=== PATIENT | female | born 1945 | race Caucasian/White ===

== ENCOUNTER 2016-09-20 02:45 | Observation (INO) | payer BC ==
[2016-09-20] MEDS ORDERED: NS 0.9% 1000 ML* 1,000 ML IV ONE (03:22)
[2016-09-20] MEDS ORDERED: Ondansetron INJ* 2 MG/ML VIAL ONE (03:26)
[2016-09-20] MEDS ORDERED: Acetaminophen SUPP* 650 MG SUPP ONE (03:27)
[2016-09-20] MEDS ORDERED: Ondansetron INJ* 2 MG/ML VIAL IV ONE ×2 (03:30→06:25)
[2016-09-20] MEDS ORDERED: Acetaminophen SUPP* 650 MG SUPP PR ONE (03:32)
[2016-09-20 03:33] LABS: Hematocrit 40 % (35-47); Hemoglobin 13.4 g/dl (12.0-16.0); Mean Corpuscular HGB Conc 34 g/dl (31-36); Mean Corpuscular Hemoglobin 31 pg (27-31); Mean Corpuscular Volume 91 fL (80-97); Mean Platelet Volume 8 um3 (7.4-10.4); Red Blood Count 4.35 10^6/ul (4.0-5.4); Red Cell Distribution Width 14 % (10.5-15); White Blood Count 4.3 10^3/ul (3.5-10.8)
--- NOTE | 2016-09-20 03:33 | ED ---
Brant Horn Billy, scribed for Chuckie White MD on 09/20/16 at 0332 . Complex/Multi-Sys Presentation - HPI Summary HPI Summary: Patient is a 70 year-old female coming to [facility] presenting with constant chills since she woke up at 0115 this morning. She also reports nausea. Nothing makes her symptoms better or worse. She states that she felt "off" before going to bed last night. - History Of Current Complaint Chief Complaint: EDFever Time Seen by Provider: 09/20/16 03:15 Hx Obtained From: Patient Onset/Duration: Gradual Onset, Lasting Hours, Still Present Timing: Constant Severity Currently: Moderate Severity Initially: Moderate Location: Negative Aggravating Factor(s): none Alleviating Factor(s): none Associated Signs And Symptoms: Positive: Nausea - Allergies/Home Medications Allergies/Adverse Reactions: Allergies Allergy/AdvReac Type Severity Reaction Status Date / Time Amoxicillin Allergy IRRITATING Verified 09/20/16 04:04 RASH Indomethacin [From Indocin] Allergy DIZZY, Verified 09/20/16 04:04 IRRITATING RASH Iodinated Contrast Media Allergy SEVERE RASH Verified 09/20/16 04:04 [IV CONTRAST DYE] Magnesium Salicylate Allergy SWELLS Verified 09/20/16 04:04 [From Msg] Moxifloxacin [From Avelox] Allergy Unknown Verified 09/20/16 04:04 Reaction Details Sulfa Drugs Allergy SEVERE RASH Verified 09/20/16 04:04 BEE STINGS Allergy Severe SWELLS Uncoded 09/20/16 04:04 SURGICAL TAPE Allergy Intermediate ORNELAS AND Uncoded 09/20/16 04:04 SKIN PEELS Home Medications: Home Medications Enalapril Maleate [Vasotec] 10 mg PO QPM 09/20/16 [History Confirmed 09/20/16] Famotidine [Pepcid] 40 mg PO BID PRN 09/20/16 [History Confirmed 09/20/16] PMH/Surg Hx/FS Hx/Imm Hx Endocrine/Hematology History: Reports: Hx Diabetes - WELL CONTROLLED, Hx Thyroid Disease Cardiovascular History: Reports: Hx Congestive Heart Failure - 2000, Hx Coronary Artery Disease, Hx Hypertension - WELL CONTROLLED, Hx Pacemaker/ICD - 2000, Other Cardiovascular Problems/Disorders - CARDIOMYOPATHY EF 45-50% Denies: Hx Peripheral Vascular Disease Respiratory History: Reports: Hx Chronic Bronchitis, Hx Pneumonia, Hx Sleep Apnea - NO CPAP OR BIPAP GI History: Reports: Hx Gastroesophageal Reflux Disease - WELL CONTROLLED, Hx Hiatal Hernia - HX OF, Other GI Disorders - HX GRAVE'S AND TESSA'S DISEASE History: Reports: Hx Kidney Stones - HX OF Musculoskeletal History: Reports: Hx Bursitis, Other Musculoskeletal History - sinal curvature d/t Cushings, pain in hips d/t osteoporosis Denies: Hx Arthritis, Hx Rheumatoid Arthritis, Hx Osteoporosis Sensory History: Reports: Hx Cataracts - l replaced r needed, Hx Contacts or Glasses, Hx Hearing Aid - bilat, Hx Hearing Problem Opthamlomology History: Reports: Hx Cataracts - l replaced r needed, Hx Contacts or Glasses Neurological History: Denies: Hx Seizures, Hx Transient Ischemic Attacks (TIA) - Cancer History Hx Chemotherapy: No Hx Radiation Therapy: No - Surgical History Surgery Procedure, Year, and Place: 1977 HYSTERECTOMY, [facility] [place]. 1979 OOPHORECTOMY, [facility] [place]. 1987 & 1988 TRANSSPHENOIDAL RESECTION OF THE PITUITARY, [facility]. [id number] FESS [place]. 1997,2002,2006 KIDNEY STONE REMOVAL, [facility]. 1999, 2006 HEART CATH [facility] AND [facility] [place]. 2000 ICD IMPLANT, [facility]. 2006, 10/18 ICD IMPLANT REPLACEMENT, [facility]. 2003, 2004 LEFT EYE LID RETRACTION , [place]. 2004 ABDOMINAL HERNIA REPAIR AND CELLULITIS ABSCESS REMOVAL [facility] [place]. 2008 THYROIDECTOMY AND PARTIAL PARATHYROIDECTOMY, [facility] [place]. 02/15 SINUS SURGERY [place]. 2010 RIGHT ROTATOR CUFF SURGERY, [facility] [place]. LEFT CATARACT [facility] [place] Hx Anesthesia Reactions: No Infectious Disease History: No Infectious Disease History: Denies: Traveled Outside the [place] in Last 30 Days - Family History Family History: No FHx of osteoporosis, breast cancer, malignant hyperthermia, or anesthesia reaction. - Social History Alcohol Use: Weekly Alcohol Amount: 2-3/WEEK Substance Use Type: Reports: None Smoking Status (MU): Former Smoker Type: Cigarettes Have You Smoked in the Last Year: No Review of Systems Positive: Chills Positive: Nausea All Other Systems Reviewed And Are Negative: Yes Physical Exam Triage Information Reviewed: Yes Vital Signs On Initial Exam: Initial Vitals Temp Pulse Resp BP Pulse Ox 101.9 F 109 20 134/59 98 09/20/16 02:59 09/20/16 02:59 09/20/16 02:59 09/20/16 02:59 09/20/16 02:59 Vital Signs Reviewed: Yes Appearance: Positive: Well-Appearing, No Pain Distress Skin: Positive: Warm Head/Face: Positive: Normal Head/Face Inspection ENT: Positive: Hearing grossly normal Neck: Positive: Supple Respiratory/Lung Sounds: Positive: Clear to Auscultation, Breath Sounds Present Cardiovascular: Positive: Tachycardia Abdomen Description: Positive: Nontender, Soft Bowel Sounds: Positive: Present Musculoskeletal: Positive: Strength/ROM Intact Neurological: Positive: Sensory/Motor Intact, Alert, Oriented to Person Place, Time Diagnostics - Vital Signs Vital Signs Temp Pulse Resp BP Pulse Ox 09/20/16 03:00 109 21 112/51 97 09/20/16 02:59 101.9 F 109 20 134/59 98 - Laboratory Result Diagrams: 09/20/16 03:00 09/20/16 03:00 Lab Statement: Any lab studies that have been ordered have been reviewed, and results considered in the medical decision making process. - Radiology CXR Xray Interpretation: No Acute Changes Radiology Interpretation Completed By: ED Physician - EKG 0427 EKG Interpretation: sinus tachycardia 120 bpm, no ST elevation Re-Evaluation - Re-Evaluation First Eval Re-Evaluation Time: 06:52 - pt still with nausea, d/w hospitalist, will admit Complex Multi-Symp Course/Dx - Diagnoses Provider Diagnoses: UTI (urinary tract infection) - Physician Notifications Discussed Care Of Patient With: Dr. Flores (hospitalist) @ 0600 Instructed by Provider To: Admit As Inpatient Discharge - Discharge Plan Condition: Fair Disposition: ADMITTED TO [facility] Prescriptions: Ciprofloxacin TAB* [Cipro Tab*] 250 mg PO BID #14 tab The documentation as recorded by the Brant owens Billy accurately reflects the service I personally performed and the decisions made by me, Chuckie White MD.
[2016-09-20 03:44] LABS: Albumin 3.8 g/dL (3.2-5.2); BUN/Creatinine Ratio 17.4 (8-20); Calcium 9.2 mg/dL (8.6-10.3); EGFR African American 77.8 (>60); EGFR Non-African American 60.5 (>60); Globulin 3.2 g/dL (2-4); Magnesium 1.9 mg/dL (1.9-2.7)
[2016-09-20 03:48] LABS: Troponin I 0.04 ng/mL (<0.04)
[2016-09-20 04:57] LABS: Urine Bacteria Absent (Absent); Urine Bilirubin Negative (Negative); Urine Glucose Negative (Negative); Urine Nitrite Negative (Negative)
[2016-09-20] MEDS ORDERED: Sulfamethox/Trimethoprim DS 800/160* TAB PO ONE (05:18)
[2016-09-20] MEDS: Ciprofloxacin TAB* 250 MG PO ONE ×2 (05:37→06:24)
[2016-09-20] MEDS ORDERED: Ciprofloxacin 400MG IVPREMIX(* 400 MG/200 ML BAG IVPB ONE (06:01)
--- NOTE | 2016-09-20 07:48 | RAD ---
INDICATION: Fever. COMPARISON: Comparison is made with a prior chest x-ray study from January 30, 2016. TECHNIQUE: Dual-energy PA and lateral views of the chest were obtained. FINDINGS: There is a dual-chamber cardiac pacemaker defibrillator present. The heart is within normal limits in size. The lungs are underinflated and clear. No pleural effusion is present. IMPRESSION: NO EVIDENCE FOR ACTIVE CARDIOPULMONARY DISEASE.
[2016-09-20] MEDS: NS 0.9% 1000 ML* 2,000 ML IV ONE ×2 (08:17→09:54)
[2016-09-20] MEDS ORDERED: Famotidine TAB 40 MG(NF) 40 MG TAB PO PRN (10:04)
--- NOTE | 2016-09-20 10:36 | ADMNOTE ---
Subjective Date of Service: 09/20/16 Interval History: ADMISSION HISTORY AND PHYSICAL EXAM: Allergies Allergy/AdvReac Type Severity Reaction Status Date / Time Amoxicillin Allergy IRRITATING Verified 09/20/16 04:04 RASH Indomethacin [From Indocin] Allergy DIZZY, Verified 09/20/16 04:04 IRRITATING RASH Iodinated Contrast Media Allergy SEVERE RASH Verified 09/20/16 04:04 [IV CONTRAST DYE] Magnesium Salicylate Allergy SWELLS Verified 09/20/16 04:04 [From Msg] Moxifloxacin [From Avelox] Allergy Unknown Verified 09/20/16 04:04 Reaction Details Sulfa Drugs Allergy SEVERE RASH Verified 09/20/16 04:04 BEE STINGS Allergy Severe SWELLS Uncoded 09/20/16 04:04 SURGICAL TAPE Allergy Intermediate ORNELAS AND Uncoded 09/20/16 04:04 SKIN PEELS Home Medications Medication Instructions Recorded Confirmed Type Cholecalciferol [Vitamin D] 4,000 unit PO DAILY 08/12/12 09/20/16 History Cyanocobalamin [Vitamin B-12] 2,500 mcg PO BID 08/12/12 09/20/16 History Furosemide 20 mg PO TUTHSA 08/12/12 09/20/16 History Levothyroxine TAB* [Synthroid TAB*] 100 mcg PO QAM 08/12/12 09/20/16 History Sennosides [Senokot] 2 tab PO DAILY 08/12/12 09/20/16 History Calcium Carbonate-Vitamin D 2 tab PO DAILY 10/05/14 09/20/16 History [Calcium 600+D] Eplerenone 25 mg PO SEE INSTRUCTIONS 10/05/14 09/20/16 History Magnesium Oxide (mg Supplement 1,000 mg PO DAILY 10/05/14 09/20/16 History [Magnesium] B-Complex Vitamins [Vitamin B 1 tab PO BID 10/07/14 09/20/16 History Complex] Dofetilide CAP* [Tikosyn CAP*] 125 mcg PO BID 08/05/15 09/20/16 History Neilmed Nasal [place] 1 spray BOTH NARES BID 08/05/15 09/20/16 History Potassium 99 mg PO BID 08/05/15 09/20/16 History Sulindac (NF) [Clinoril (NF)] 200 mg PO BID 08/05/15 09/20/16 History Ciprofloxacin TAB* [Cipro Tab*] 250 mg PO BID #14 tab 09/20/16 Rx Enalapril Maleate [Vasotec] 10 mg PO QPM 09/20/16 09/20/16 History Famotidine [Pepcid] 40 mg PO BID PRN 09/20/16 09/20/16 History HPI: The patient was in her usual state of health when whe went to bed at her usual time of 8 PM 09/19. She awoke this AM with shaking chills. When she stood up she was a little dizzy. She called 911 and was brought here by ambualnce. She is a little nauseous, no other c/o. Family History: Findings - Unremakable. Social History: Findings - Lives with her who is her SDM. Quit smoking 30 yrs ago. No alcohol abuse. Past Medical History: Findings - Pituitary tumor resection x 2 1987, 1988. Nonischemic cardiomyopathy whil taking GH. AICD. TAHBSO, sinus surgeries, abcess removal 2004, abdominal hernia repair. Review of Systems - Measurements Intake and Output: Intake and Output Last 24 Hours 09/18/16 09/19/16 09/20/16 09/21/16 06:59 06:59 06:59 06:59 Intake Total 1202 1000 Balance 1202 1000 Weight 143 lb Intake: IV Fluids 1202 1000 - Review of Systems Constitutional Symptoms: Positive: Other - chills Negative: Weight Gain, Weight Loss, Weakness, Fatigue, Fever, Night Sweats, Unexplained Falls Dermatology: Positive: Normal HEENT: Positive: Normal Eyes: Positive: Normal Thyroid: Positive: Other - secondary hypothyroidism Pulmonary: Positive: Normal Cardiology: Positive: Other - cardiomyopathy Gastroenterology: Positive: Nausea Genital - Urinary: Positive: Normal Musculoskeletal: Negative: Joint Pain, Joint Stiffness, Arthritis, Osteoporosis, Low Back Pain , Sciatica, Joint Deformities, Kyphoscoliosis, Other Endocrinology: Positive: Pituitary disease Hematologic/Lymphatic: Negative: Anemia, Easy Brusing, Hx Leukemia, Hx Lymphoma, Use of Anticoagulant, Use of Antiplatelet Drugs, Other Neurology: Positive: Normal Psychiatry: Positive: Normal Allergic/Immunologic: Negative: Hx Anaphylaxis, Hx Angioedema, Hx Environmental, Hx Seasonal, Athsma, Hx HIV, Immunocompromise, Swollen Glands LymphNodes, Other Objective Active Medications: Cholecalciferol (Vitamin D Tab*) 4,000 units PO DAILY [facility] Dofetilide (Tikosyn Cap*) 125 mcg PO BID [facility] Dofetilide (Tikosyn Cap*) 125 mcg PO BID [facility] Enalapril Maleate (Vasotec Tab*) 5 mg PO QPM [facility] Enoxaparin Sodium (Lovenox(*)) 40 mg SUBCUT Q24H [facility] Eplerenone (Inspra (Nf)) 25 mg PO Q48H [facility] PRN Reason: Protocol Famotidine (Pepcid Tab 40 Mg(Nf)) 40 mg PO BID PRN PRN Reason: INDIGESTION Furosemide (Lasix Tab*) 20 mg PO TUTHSA [facility] Ciprofloxacin/Dextrose (Cipro 400 Mg Ivpremix(*)) 400 mg in 200 mls @ 200 mls/ hr IVPB Q12H [facility] Levothyroxine Sodium (Synthroid Tab*) 100 mcg PO QAM [facility] Magnesium Oxide (Magox 400 Tab*) 400 mg PO DAILY [facility] Senna (Senokot Tab*) 2 tab PO DAILY [facility] Sulindac (Clinoril (Nf)) 200 mg PO BID [facility] Vital Signs 09/20/16 09/20/16 09/20/16 02:59 03:00 03:30 Temperature 101.9 F Pulse Rate 109 109 116 Respiratory 20 21 22 Rate Blood Pressure 134/59 112/51 128/62 (mmHg) O2 Sat by Pulse 98 97 93 Oximetry 09/20/16 09/20/16 09/20/16 04:00 04:03 04:30 Temperature 100.1 F Pulse Rate 113 114 118 Respiratory 19 9 21 Rate Blood Pressure 105/60 103/58 (mmHg) O2 Sat by Pulse 95 95 94 Oximetry 09/20/16 09/20/16 09/20/16 05:00 05:24 05:30 Temperature 101.2 F Pulse Rate 116 112 Respiratory 20 19 Rate Blood Pressure 100/51 99/49 (mmHg) O2 Sat by Pulse 92 93 Oximetry 09/20/16 09/20/16 09/20/16 06:00 06:19 06:30 Temperature 98.2 F Pulse Rate 90 88 Respiratory 21 19 Rate Blood Pressure 80/44 91/41 (mmHg) O2 Sat by Pulse 90 92 Oximetry 09/20/16 09/20/16 07:57 10:26 Temperature 99.4 F 99.2 F Pulse Rate 87 82 Respiratory 15 17 Rate Blood Pressure 93/47 94/42 (mmHg) O2 Sat by Pulse 95 95 Oximetry Oxygen Devices in Use Now: None Appearance: Alert, supine on ED stretcher. In good spirits. Looks comfortable. Eyes: No Scleral Icterus Ears/Nose/Mouth/Throat: Clear Oropharnyx, Mucous Membranes Moist Neck: NL Appearance and Movements; NL JVP, No Thyroid Enlargement, Masses Respiratory: Symmetrical Chest Expansion and Respiratory Effort, Clear to Auscultation, Clear to Percussion Cardiovascular: NL Sounds; No Murmurs; No JVD, RRR, No Edema, - Extremities: No Edema, No Clubbing, Cyanosis, - Skin: No Rash or Ulcers, No Nodules or Sclerosis, - Neurological: Alert and Oriented x 3, NL Sensation Result Diagrams: 09/20/16 03:00 09/20/16 03:00 Microbiology and Other Data: Microbiology 09/20/16 03:04 Influenza Types A,B Antigen (KAILEE) - Final Nasal Specimen received for Influenza A/B Molecular testing Assess/Plan/Problems-Billing Assessment: - Patient Problems (1) Sepsis Current Visit: Yes Status: Acute Comment: Sepsis with hypotension, increased lactate, chills and fever. Suspect UTI. Cipro ordered. (2) Cardiomyopathy Current Visit: Yes Status: Acute Code(s): I42.9 - CARDIOMYOPATHY, UNSPECIFIED SNOMED Code(s): 14542441 Comment: Followed by Dr. Patterson. Note ICD. Repeat troponin 11:30 09/20. Caution with IV fluids. Continue dofetilide, diuretics. Reduce enalapril to 5 mg hs. 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 Note Free T4, free T3 wnl 08/30/16.
[2016-09-20] MEDS ORDERED: Dofetilide CAP* 125 MCG PO SCH (11:00)
[2016-09-20] MEDS ORDERED: Levothyroxine TAB* 137 MCG TAB PO SCH (11:00)
[2016-09-20] MEDS ORDERED: Enoxaparin(*) 40 MG/0.4 ML SYR SUBCUT SCH (11:00)
[2016-09-20] MEDS ORDERED: Epleronone (NF) 25 MG TAB PO SCH (11:00)
[2016-09-20] MEDS: Hydrocortisone INJ* 100 MG VIAL IV SCH ×2 (11:47→19:28)
[2016-09-20] MEDS: Magnesium Oxide TAB* 400 MG PO SCH (11:52)
[2016-09-20] MEDS: Dofetilide CAP* 125 MCG PO SCH ×2 (11:55→21:16)
[2016-09-20] MEDS ORDERED: Famotidine TAB* 20 MG PO PRN (12:08)
[2016-09-20] MEDS ORDERED: Ondansetron INJ* 2 MG/ML VIAL IV PRN (14:01)
[2016-09-20] MEDS ORDERED: Enalapril TAB* 5 MG PO SCH ×2 (18:00)
[2016-09-20] MEDS: SULINDAC 150 MG PO SCH (19:28)
[2016-09-20] MEDS ORDERED: Ciprofloxacin 400MG IVPREMIX(* 400 MG/200 ML BAG IVPB SCH (21:00)
[2016-09-20] MEDS: ceFUROXime TAB(*) 250 MG PO SCH (21:16)
[2016-09-21] MEDS: Hydrocortisone INJ* 100 MG VIAL IV SCH (03:17)
[2016-09-21] MEDS ORDERED: Levothyroxine TAB* 100 MCG TAB PO SCH (06:00)
[2016-09-21] MEDS: ceFUROXime TAB(*) 250 MG PO SCH (08:38)
[2016-09-21] MEDS: SULINDAC 150 MG PO SCH (08:40)
[2016-09-21] MEDS: Dofetilide CAP* 125 MCG PO SCH (08:40)
[2016-09-21] MEDS: Magnesium Oxide TAB* 400 MG PO SCH (08:40)
[2016-09-21] MEDS ORDERED: CMC:Epleronone (NF) 25 MG TAB PO SCH (09:00)
[2016-09-21] MEDS ORDERED: Senna TAB PO SCH (09:00)
[2016-09-21] MEDS ORDERED: Cholecalciferol TAB* 1000 UNITS PO SCH (09:00)
--- NOTE | 2016-09-21 09:28 | PN ---
Hospitalist Progress Note . HOSPITALIST DISCHARGE NOTE: See dc instructions and summary by me. Patient stable for dc dc instructions reviewed with the patient at the bedside. DC patient home today.
[2016-09-21] MEDS ORDERED: Furosemide TAB* 20 MG PO SCH (10:04)
[2016-09-21 12:48] VITALS: BP 127/51
--- NOTE | 2016-09-22 02:58 | DS ---
DISCHARGE SUMMARY: DATE OF ADMISSION: 09/20/15 DATE OF DISCHARGE: 09/21/16 PRIMARY CARE PROVIDER: Sang Kebede DO [facility]. OUTPATIENT BATCHMAKER: Dr. Rosio Patterson. PRINCIPAL DISCHARGE DIAGNOSIS: Acute lower urinary tract infection with sepsis versus hypotension secondary to adrenal insufficiency in patient status post pituitary resection for Roberto Carlos's syndrome. SECONDARY DIAGNOSES: 1. Nonischemic cardiomyopathy. 2. AICD in situ. 3. Total abdominal hysterectomy and bilateral salpingo-oophorectomy. 4. History of sinus surgeries. 5. History of abdominal hernia repair and abscess removal. 6. History of pituitary tumor resection x 2 in 1987, 1988. DISCHARGE MEDICATION REGIMEN: New: 1. Cefuroxime 500 mg by mouth twice daily for 5 days, then stop - 10 tablets. 2. Hydrocortisone 5 mg tab - take as directed - instructed the patient to take 10 mg by mouth twice daily for 3 days, then 5 mg by mouth twice daily for an additional 2 days, then stop with 30 tabs prescribed. Can use remaining tablets to continue taper as needed and as directed by outpatient physicians. Continue: 1. Levothyroxine 100 mcg by mouth daily. 2. Cyanocobalamin 250 mcg by mouth twice daily. 3. Sennosides/Senokot 2 tabs by mouth daily. 4. Cholecalciferol 4000 units by mouth every day. 5. Furosemide 20 mg by mouth on Sunday, , Sunday. 6. Magnesium oxide 1000 mg by mouth daily. 7. Calcium carbonate 2 tablets by mouth daily. 8. Eplerenone 25 mg by mouth by instructions. 9. B complex vitamin 1 tab by mouth twice daily. 10. Sulindac/Clinoril 150 mg by mouth twice daily. 11. Potassium supplement 99 mg by mouth twice daily. 12. Dofetilide 125 mcg orally twice daily. 13. NeilMed nasal spray 1 spray both nares twice daily. 14. Famotidine/Pepcid 40 mg by mouth twice daily as needed. 15. Enalapril 10 mg by mouth every evening. HISTORY OF PRESENT ILLNESS AND HOSPITAL COURSE: Please see the H and P by Dr. Abel Delgado on 09/20/16. In brief, Ms. Viramontes is a very pleasant woman with a complicated past medical history including nonischemic cardiomyopathy and hypopituitarism and subsequently relative adrenal insufficiency in the setting of stress, who was in her usual state of health when she went to bed on the evening of September 19. She woke the morning of September 20 with shaking chills and was dizzy upon standing. She called 911 and was brought in by ambulance. She was somewhat nauseous, but had no other complaints. She had a grossly abnormal urinalysis. She was started on antibiotics. Her blood pressures were quite low at times with systolics 80 over diastolics 40. She was started not only on antibiotics for the urinary tract infection, but also IV hydrocortisone and she was given IV normal saline. The patient did well. Her blood pressure responded nicely. She was initially hypotensive, but her blood pressure responded overnight and into this morning. When I saw the patient, she was sitting up in bed, she was eating breakfast, she was without complaints, she was feeling subjectively much better. Her only remaining complaint was that her hands were somewhat swollen from the fluid administration and she suspects her steroids. Given her response so far, I will continue her for a total a 5 days of oral antibiotics and also downgrade her steroids to oral hydrocortisone 10 mg by mouth twice daily, which is typical replacement dosing in patients who require replacement for adrenal insufficiency. There is an argument for ceasing steroids altogether, although I do not know how the patient is going to respond when she is fully off steroids. I think the cautious move here is to give a short course with the ability to extend if she feels ongoing lightheadedness. I think she is responding nicely. I spoke with her daughter, who is a [employer] employee, and explained my plan of care and told the patient to come back to the emergency room if she has any worrisome symptoms including, but are not limited to lightheadedness, lethargy, low urinary symptoms, or any other worrisome symptoms that might arise. She said she would comply with that instruction. Followup care was arranged for Dr. Kebede and I will notify Dr. Patterson, the patient's veterans' counselor, that the patient was in the hospital. She will see Dr. Kebede on 09/25/16 at 11:45 a.m. and she can come back to the emergency room in the interim if there are any problems. TIME SPENT: Total time taken to discharge Ms. Viramontes was 40 minutes, greater than half the time spent at the bedside going over the discharge instructions and communicating the plan of care to the patient. CC: Sang Kebede DO; Dr. Patterson* [id number]/[facility] #: [id number] [facility]PITALBalbina
--- NOTE | 2016-11-24 07:41 | ED ---
Parker Horn Adam, scribed for Sha Valles MD on 09/20/16 at 0943 . Progress - Progress Note Progress Note: This patient was signed out to me by Dr. White at 07:00. Re-Evaluation - Re-Evaluation First Eval Re-Evaluation Time: 09:40 Change: Improved - Patient's blood pressure has improved to 102 systolic. She should be appropriate for the floor. Course/Dx - Diagnoses Provider Diagnoses: UTI (urinary tract infection), Sepsis The documentation as recorded by the kbibParker jamil Adam accurately reflects the service I personally performed and the decisions made by Reena aleman Jerry, MD.
== END 2016-09-21 12:05 | disposition home or self-care (01) ==
LOC: ED 02:45 → ICU 09:42 → INTOOBSV 09:42 → MED 18:35
PROVIDERS: ADMIT Internal Medicine; ATTEND Internal Medicine
DX: N39.0 Urinary tract infection, site not specified (principal); I42.9 Cardiomyopathy, unspecified; R00.0 Tachycardia, unspecified; Z95.810 Presence of automatic (implantable) cardiac defibrillator; K21.9 Gastro-esophageal reflux disease without esophagitis; E11.9 Type 2 diabetes mellitus without complications; Z87.891 Personal history of nicotine dependence; Z88.0 Allergy status to penicillin; Z79.899 Other long term (current) drug therapy; Z88.2 Allergy status to sulfonamides; Z88.8 Allergy status to other drugs, medicaments and biological substances; I45.81 Long QT syndrome
CPT/HCPCS: 36415; 71020; 80053; 81003; 81015; 82533; 83605; 83735; 84484; 85025; 87040; 87086; 87502; 93005; 96361; 96365; 96366; 96372; 96375; 96376; 99285; A9270-GY; G0378; J0744; J1650; J1720; J2405

== ENCOUNTER 2017-10-01 20:45 | Emergency (ER) | payer MEDICARE, BC ==
--- OUTSIDE RECORDS SUMMARY | 2017-10-01 21:15 | XMS REPORT ---
:1945 External Reference #:[id number] Author Organization [facility] Address [address] [address] Phone [phone] Care Team Providers Name Role Phone Brittany Morataya DO Primary Care Physician Unavailable Payers Type Date Identification Numbers Payment Provider Subscriber Medicare Primary Effective: Policy Number: Medicare Audra Virk 2016 [id number] PayID: [id number] [address] [place] [address] [employer] Part B Policy Number: [id number] [facility] Audra Pettiton PayID: [id number] [phone] Problems Date Description Provider Status Onset: 05/26/2013 Primary cardiomyopathy Rosio Patterson M.D. Active Onset: 05/26/2013 Paroxysmal ventricular tachycardia Rosio Patterson M.D. 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 Active Onset: 06/17/2014 Essential hypertension Rosio Patterson M.D. Active Onset: 06/17/2014 Congestive heart failure Rosio Patterson M.D. Active Onset: 06/17/2014 Headache Rosio Patterson M.D. Active Onset: 07/21/2014 Dyssomnia Arianna Nuñez MD Active Onset: 07/21/2014 Hypersomnia Arianna Nuñez MD Active Onset: 09/21/2014 Obstructive sleep apnea syndrome Arianna Nuñez MD Active Onset: 09/29/2014 Dizziness and giddiness Rosio Patterson M.D. Active Onset: 04/14/2015 Apnea Rosio Patterson M.D. Active Onset: 04/20/2015 Spontaneous ecchymosis Rosio Patterson M.D. Active Onset: 04/20/2015 Malaise and fatigue Rosio Patterson M.D. Active Onset: 04/20/2015 Amnesia Rosio Patterson M.D. 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 Active tachycardia Onset: 04/21/2016 Premature beats Rosio Patterson M.D. Active Onset: 04/21/2016 Aortic valve disorder Rosio Patterson M.D. Active Onset: 06/06/2017 Brachial neuritis Jason Cortez M.D. Active Onset: 08/22/2017 Neck pain Mark Mckoy MD Active Onset: 08/22/2017 Low back pain Mark Mckoy MD Active Onset: 08/22/2017 Cervical spondylosis Mark Mckoy MD Active Onset: 09/10/2017 Closed fracture of medial condyle Natalia Stevens M.D. Active of humerus Onset: 09/18/2017 Cervical disc disorder Mark Mckoy MD Active Family History Date Family Member(s) Problem(s) Comments General Cerebrovascular Accident (CVA) General Hypertension Father due to Natural Causes () Mother due to Stroke () Mother Cerebrovascular Accident (CVA) Mother Obesity Mother Hypertension First Son due to Hepatitis, Viral () Social History Type Date Description Comments Marital Status Lives With Occupation Works at [employer] Occupation Retired Cigarette Use Former Cigarette Smoker ETOH Use Currently consumes alcohol couple drinks 1-3 times per week Recreational Drug Use Denies Drug Use Smoking Patient is a former smoker smoked for 15yrs on and off starting in high school. 1-1 1/2 PPD Daily Caffeine Does Not Consume Caffeine Exercise Type/Frequency Exercises regularly 3 days a week 45 mins Allergies, Adverse Reactions, Alerts Date Description Reaction Status Severity Comments 08/08/2012 Amoxicillin active 08/08/2012 Indocin active 08/08/2012 Proventil active 08/08/2012 Sulfa active 08/08/2012 Tape active surgical tape 08/08/2012 MSG active 08/08/2012 Bee Sting active 05/22/2013 Contrast Dye active 05/26/2013 Avelox dizziness, muscle active pain in arm 12/27/2015 Cefuroxime Contact dermatitis active 03/10/2016 Beta Adrenergic malaise, jt aches, active Moderate Blockers depression Medications Medication Date Status Form Strength Qnty SIG Indications Ordering Provider Prednisone 09/07 Active Tablets 50mg 3tabs 1 tab po Vassilios /2017 13, 7, 1 Dimopoulos hours prior , to procedure Benadryl 09/07 Active Tablets 25mg 2tabs 2 tabs po 1 Vassilios Allergy hour prior Leelee salinas MD procedure Gabapentin 06/06 Active Capsules 300mg 30cap 1 by mouth M54.12 s every night Diego, at bedtime MMasoudDMasoud Probiotic 03/01 Active Capsules 1000 30cap once a day Rosio Acidophilus s Myles Patterson Enalapril 08/28 Active Tablets 10mg 90tab 1 by mouth I10 Rosio Maleate s at bedtime Myles Patterson Furosemide 02/04 Active Tablets 20mg 45tab one every s other day ricarda Patterson M.D. with eplerenone Tikosyn 10/13 Active Capsules 125mcg 180ca 1 by mouth ps twice a day Myles Patterson Calcium + D Active Tablets 60tab 2 tablet po Unknown / s daily Senna Active Capsules 8.6mg 60cap 2 cap po at Unknown /0000 s hs Vitamin B-12 Active Tablets 1000mcg 2.5 tablets Unknown /0000 po b.i.d Magnesium Active Capsules 1000mg 1 po qd Unknown / Synthroid Active Tablets 88mcg 1 po daily Unknown / Vitamin D3 Active Capsules 4000mg 30cap 1 po qd Unknown /0000 s Stress Formula Active Tablets 2 po qd Unknown / Eplerenone Active Tablets 25mg 45tab 1 tab every Rosio s every other Yesenia, .D. alternate with furosimde Potassium Active Tablets 99mg otc bid Nasal Rinse Active Misc Daily as needed Garlic Oil Active 2 daily Unknown Famotidine Active Tablets 40mg 1 tab PO as needed Sulindac Active Tablet 100mg 1 tab PO Unknown / Am, 1 tab PO hs Cortef Active Tablets 5mg Take One Tablet By Mouth Every Morning And 1/2 Tablets By Mouth Every hs Neilmed Active daily Unknown Hydrocortisone Active Tablets 5mg Enalapril 01/31 Hx Tablets 2.5mg 90tab 1 tap PO q I47.1 Rosio Menjivar day Raven Patterson M.D. 04/20 Atenolol 01/29 Hx Tablets 25mg 60tab 1 by mouth Sea Gomez s once in am DO Shukri - FACC 03/10 Enalapril 01/29 Hx Tablets 10mg 90tab 1 by mouth Rosio Menjivar s every day Raven Patterson M.D. 01/31 Enalapril 10/18 Hx Tablets 2.5mg 30tab 4 tab po qd Rosio Menjivar s Raven Patterson M.D. 12/31 Metoprolol 09/24 Hx Tablets ER 50mg 30tab 1 by mouth 427.69 Rosio Succinate /2014 24HR s each night Raven Patterson M.D. 10/08 Allopurinol 09/18 Hx Tablets 200 1 po once a day (pt is - taking 2 03/23 100mg tabs) Aspir-Low 09/[address] 81mg 30tab 1 by mouth 427.1 Rosio s every day Raven Patterson M.D. 04/24 Eplerenone 06/24 Hx Tablets 25mg 60tab 1tab by 401.9 Rosio s mouth Yesenia - ricarda M.DMasoud 09/21 days lasix Enalapril 05/25 Hx Tablets 10mg 30tab take 2 tabs Rosio Menjivar s by mouth Yesenia, - bid. M.D. 08/16 Spironolactone 05/11 Hx Tablets 25mg 90tab 2 by mouth 428.0 s every day Yesenia - M.D. 06/24 Ventolin HFA 05/26 Hx Aerosol 108(90Bas 1unit patient Rosio e) s using prn Yesenia, - mcg/Act throat M.D. 01/16 tickling Carvedilol 10/07 Hx Tablets 3.125mg 270ta two tablets Rosio bs in am and Yesenia, - two tablets M.D. 09/24 by mouth /2014 every evening Amlodipine 05/28 Hx Tablets 5mg 90tab 1 po qd Rosio Besylate s Yesenia, - M.D. 01/14 Synthroid Hx Tablets 125mcg 30tab 1 po qd Unknown /0000 s - 05/26 Enalapril Hx Tablets 20mg 200ta 1 po bid Unknown Male /0000 bs - 05/11 Lasix Hx Tablets 20mg 14tab 1 tablet Unknown /0000 s qam - alternating 09/18 eplerenone Quinapril HCL Hx Tablets 20mg 90tab 1 po bid Unknown /0000 s - 05/[address] 20mg 90tab 1 po bid Unknown /0000 s - 08/14 Metformin HCL Hx Tablets 500mg 180ta 2 tablet po Unknown /0000 bs pm - 03/23 Multivitamins 00 Hx Capsules 30cap 1 capsule Unknown /0000 s rufino;y - 08/22 Vitamin C Hx Tablets 500mg 90tab 1 po qd Unknown /0000 s - 06/23 Sulindac Hx Tablets 200mg bid Unknown /0000 - 03/23 Budesonide Hx Suspension 0.25mg/2M 180un via Unknown /0000 L its nebulizer - bid as 08/13 Potassium Hx Tablets 99mg 2 po qd Unknown /0000 - 05/11 Echinacea Hx Capsules 400mg 1 cap po Unknown /0000 bid - 06/23 Vasotec 00/00 Hx Tablets 20mg 90tab 1/2 tab po Rosio /0000 s qd Yesenia, - M.D. 10/18 Furosimide 00/00 Hx Tablets 20mg 60tab 1 tab every Rosio /0000 s sunday , [place], - sunday M.D. 02/04 and Sunday Metoprolol 00/ Hx Tablets ER 50mg 90tab 1/2 tab by Rosio Succinate ER /0000 24HR s mouth every , - day at at M.D. 05/18 bedtime Apple Cider 00 Hx 1 tsp bid Unknown Vinegar /0000 - 10/22 Cefuroxime 00/00 Hx Tablets 500mg 1 tablet po Sandeep, Axetil /0000 twice daily MD Verónica - x 14 days ( 12/26 To until 11/05/15) Aciphex 00 Hx 20mg 1 tablet po Unknown /0000 bid - 03/23 Immunizations CPT Code Status Date Vaccine Lot # [id number] Given 05/21/2014 Influenza Virus 3Yrs & Over Vital Signs Date Vital Result Comment 09/18/2017 Height 64 inches 5'4" Weight 152.00 lb BP Systolic Sitting 130 mmHg BP Diastolic Sitting 71 mmHg Pain Level 2 BMI (Body Mass Index) 26.1 kg/m2 09/10/2017 Height 64 inches 5'4" Weight 1502.00 lb Heart Rate 69 /min BP Systolic 126 mmHg BP Diastolic 76 mmHg Respiratory Rate 18 /min Body Temperature 98.0 F Pain Level 0 BMI (Body Mass Index) 257.8 kg/m2 08/22/2017 Height 64 inches 5'4" Weight 152.00 lb Heart Rate 92 /min BP Systolic Sitting 130 mmHg BP Diastolic Sitting 74 mmHg Pain Level 5 BMI (Body Mass Index) 26.1 kg/m2 06/06/2017 Height 64 inches 5'4" Weight 152.00 lb BP Systolic 128 mmHg BP Diastolic 82 mmHg Respiratory Rate 14 /min Body Temperature 98.3 F Pain Level 8 BMI (Body Mass Index) 26.1 kg/m2 03/01/2017 Height 64 inches 5'4" Weight 150.00 lb no shoes Heart Rate 76 /min BP Systolic Sitting 140 mmHg Lue reg cuff BP Diastolic Sitting 82 mmHg Lue reg cuff BP Systolic Standing 134 mmHg Lue reg cuff BP Diastolic Standing 76 mmHg Lue reg cuff Respiratory Rate 16 /min BMI (Body Mass Index) 25.7 kg/m2 Ejection Fraction 50-55% 03/30/2016-echo 08/28/2016 Height 64 inches 5'4" Weight 143.00 lb no shoes Heart Rate 88 /min BP Systolic Sitting 152 mmHg BP Diastolic Sitting 90 mmHg BP Systolic Standing 156 mmHg BP Diastolic Standing 88 mmHg Respiratory Rate 18 /min BMI (Body Mass Index) 24.5 kg/m2 Ejection Fraction 50-55% 03/30/2016 04/21/2016 Height 64 inches 5'4" Weight 155.00 lb Heart Rate 92 /min BP Systolic Sitting 140 mmHg left arm, reg cuff BP Diastolic Sitting 92 mmHg left arm, reg cuff BP Systolic Standing 128 mmHg left arm, reg cuff BP Diastolic Standing 86 mmHg left arm, reg cuff Respiratory Rate 20 /min BMI (Body Mass Index) 26.6 kg/m2 Ejection Fraction 50-55% 03/30/16 03/20/2016 Height 64 inches 5'4" Weight 155.00 lb w/o shoes Heart Rate 110 /min reg BP Systolic Sitting 106 mmHg Lue, reg cuff BP Diastolic Sitting 70 mmHg Lue, reg cuff BP Systolic Standing 94 mmHg Lue BP Diastolic Standing 70 mmHg Lue Respiratory Rate 16 /min BMI (Body Mass Index) 26.6 kg/m2 Ejection Fraction 50% as of 09/22/14 echo 03/10/2016 Height 64 inches 5'4" Weight 159.00 lb no shoes Heart Rate 70 /min BP Systolic Sitting 108 mmHg LA, reg cuff BP Diastolic Sitting 70 mmHg LA, reg cuff BP Systolic Standing 112 mmHg LA BP Diastolic Standing 74 mmHg LA Respiratory Rate 14 /min BMI (Body Mass Index) 27.3 kg/m2 Ejection Fraction 50% 09/22/14 02/23/2016 Height 64 inches 5'4" Weight 160.00 lb Heart Rate 56 /min BP Systolic Sitting 130 mmHg LA reg cuff BP Diastolic Sitting 80 mmHg LA reg cuff BP Systolic Standing 120 mmHg LA reg cuff BP Diastolic Standing 64 mmHg LA reg cuff BP Systolic Recheck 120 mmHg LA reg cuff BP Diastolic Recheck 64 mmHg LA reg cuff Respiratory Rate 16 /min BMI (Body Mass Index) 27.5 kg/m2 Ejection Fraction 50% ECHO 09/22/14 02/23/2016 Height 64 inches 5'4" Ejection Fraction 50% echo 09/22/14 02/01/2016 Height 64 inches 5'4" Weight 156.00 lb w/o shoes Heart Rate 58 /min reg BP Systolic Sitting 120 mmHg Lue, reg cuff BP Diastolic Sitting 84 mmHg Lue, reg cuff BP Systolic Standing 116 mmHg Lue BP Diastolic Standing 80 mmHg Lue Respiratory Rate 16 /min BMI (Body Mass Index) 26.8 kg/m2 Ejection Fraction 50% As of 09/22/14 echo 12/07/2015 Height 64 inches 5'4" Weight 156.00 lb without shoes Heart Rate 82 /min BP Systolic Sitting 172 mmHg LA reg cuff BP Diastolic Sitting 90 mmHg LA reg cuff BP Systolic Standing 168 mmHg LA reg cuff BP Diastolic Standing 90 mmHg LA reg cuff Respiratory Rate 18 /min BMI (Body Mass Index) 26.8 kg/m2 Ejection Fraction 50% date 09/22/14 ECHO 10/28/2015 Height 64 inches 5'4" Weight 154.00 lb without shoes Heart Rate 92 /min BP Systolic Sitting 104 mmHg LA reg cuff BP Diastolic Sitting 76 mmHg LA reg cuff BP Systolic Standing 110 mmHg LA reg cuff BP Diastolic Standing 78 mmHg LA reg cuff Respiratory Rate 17 /min BMI (Body Mass Index) 26.4 kg/m2 Ejection Fraction 50% date 09/22/14 ECHO 10/19/2015 Height 64 inches 5'4" Weight 154.00 lb Heart Rate 84 /min BP Systolic Sitting 104 mmHg LA reg cuff BP Diastolic Sitting 78 mmHg LA reg cuff BP Systolic Standing 108 mmHg LA BP Diastolic Standing 86 mmHg LA Respiratory Rate 16 /min BMI (Body Mass Index) 26.4 kg/m2 Ejection Fraction 50% 09/22/14 10/12/2015 Height 64 inches 5'4" Weight 154.50 lb w/o shoes Heart Rate 92 /min reg BP Systolic Sitting 104 mmHg Lue, reg cuff BP Diastolic Sitting 70 mmHg Lue, reg cuff BP Systolic Standing 106 mmHg Lue BP Diastolic Standing 66 mmHg Lue Respiratory Rate 18 /min BMI (Body Mass Index) 26.5 kg/m2 Ejection Fraction 50% As of 09/22/14 echo 07/28/2015 Height 64 inches 5'4" Weight 155.00 lb w/o shoes Heart Rate 78 /min reg BP Systolic Sitting 120 mmHg Lue, reg cuff BP Diastolic Sitting 72 mmHg Lue, reg cuff BP Systolic Standing 124 mmHg Lue BP Diastolic Standing 74 mmHg Lue Respiratory Rate 18 /min BMI (Body Mass Index) 26.6 kg/m2 Ejection Fraction 50% as of 09/22/14 echo 04/30/2015 Height 64 inches 5'4" Weight 164.00 lb without shoes Heart Rate 84 /min BP Systolic Sitting 124 mmHg L arm reg cuff BP Diastolic Sitting 70 mmHg L arm reg cuff BP Systolic Standing 120 mmHg BP Diastolic Standing 70 mmHg Respiratory Rate 18 /min BMI (Body Mass Index) 28.1 kg/m2 Ejection Fraction 50 09/22/14 04/20/2015 Height 64 inches 5'4" Weight 170.00 lb w/o shoes Heart Rate 78 /min irreg BP Systolic Sitting 126 mmHg Lue, reg cuff BP Diastolic Sitting 80 mmHg Lue, reg cuff BP Systolic Standing 128 mmHg Lue BP Diastolic Standing 80 mmHg Lue Respiratory Rate 18 /min BMI (Body Mass Index) 29.2 kg/m2 Ejection Fraction 50% as of 09/22/14 echo 04/14/2015 Height 64 inches 5'4" Weight 172.00 lb w/o shoes Heart Rate 54 /min irreg BP Systolic Sitting 116 mmHg Lue, reg cuff BP Diastolic Sitting 80 mmHg Lue, reg cuff BP Systolic Standing 110 mmHg Lue BP Diastolic Standing 74 mmHg Lue Respiratory Rate 18 /min BMI (Body Mass Index) 29.5 kg/m2 Ejection Fraction 50% as of 09/22/14 echo 02/10/2015 Height 64 inches 5'4" Weight 170.50 lb Heart Rate 64 /min BP Systolic 140 mmHg LA reg BP Diastolic 88 mmHg LA reg BMI (Body Mass Index) 29.3 kg/m2 Ejection Fraction 50% 09/22/14 ECHO 12/30/2014 Height 64 inches 5'4" Weight 171.00 lb w/o shoes Heart Rate 62 /min reg BP Systolic Sitting 124 mmHg Ra, reg cuff BP Diastolic Sitting 74 mmHg Ra, reg cuff BP Systolic Standing 124 mmHg Ra BP Diastolic Standing 66 mmHg Ra Respiratory Rate 18 /min BMI (Body Mass Index) 29.3 kg/m2 Ejection Fraction 50% Visual Ef as of 09/22/2014 10/30/2014 Height 64 inches 5'4" Weight 166.00 lb w/o shoes Heart Rate 76 /min reg BP Systolic Sitting 126 mmHg LA, reg cuff BP Diastolic Sitting 70 mmHg LA, reg cuff BP Systolic Standing 130 mmHg LA BP Diastolic Standing 70 mmHg LA Respiratory Rate 16 /min BMI (Body Mass Index) 28.5 kg/m2 10/13/2014 Height 64 inches 5'4" Weight 166.00 lb Heart Rate 66 /min BP Systolic Sitting 140 mmHg right arm, reg cuff BP Diastolic Sitting 82 mmHg right arm, reg cuff BP Systolic Standing 132 mmHg right arm, reg cuff BP Diastolic Standing 84 mmHg right arm, reg cuff Respiratory Rate 16 /min BMI (Body Mass Index) 28.5 kg/m2 09/29/2014 Weight 164.00 lb Heart Rate 68 /min BP Systolic Sitting 108 mmHg LA, reg cuff BP Diastolic Sitting 64 mmHg LA, reg cuff BP Systolic Standing 128 mmHg LA BP Diastolic Standing 78 mmHg LA Respiratory Rate 16 /min 09/24/2014 Weight 164.00 lb with out shoes Heart Rate 82 /min 70 BP Systolic Sitting 102 mmHg LA reg cuff BP Diastolic Sitting 56 mmHg LA reg cuff Respiratory Rate 17 /min 09/21/2014 Weight 164.00 lb without shoes 09/21/2014 Height 64 inches 5'4" Weight 165.00 lb Heart Rate 99 /min BP Systolic Sitting 134 mmHg BP Diastolic Sitting 70 mmHg Respiratory Rate 18 /min O2 % BldC Oximetry 98 % BMI (Body Mass Index) 28.3 kg/m2 09/18/2014 Height 64 inches 5'4" Weight 169.00 lb Heart Rate 72 /min BP Systolic Sitting 144 mmHg Ra reg cuff BP Diastolic Sitting 82 mmHg Ra reg cuff BP Systolic Standing 136 mmHg Ra BP Diastolic Standing 78 mmHg Ra Respiratory Rate 16 /min BMI (Body Mass Index) 29.0 kg/m2 08/17/2014 Height 64 inches 5'4" Weight 163.00 lb Heart Rate 70 /min BP Systolic Sitting 142 mmHg right arm, reg cuff BP Diastolic Sitting 78 mmHg right arm, reg cuff BP Systolic Standing 136 mmHg right arm, reg cuff BP Diastolic Standing 76 mmHg right arm, reg cuff Respiratory Rate 16 /min BMI (Body Mass Index) 28.0 kg/m2 08/14/2014 Height 64 inches 5'4" Weight 162.00 lb no shoes Heart Rate 62 /min BP Systolic Sitting 116 mmHg LA, reg cuff BP Diastolic Sitting 78 mmHg LA, reg cuff BP Systolic Standing 116 mmHg LA BP Diastolic Standing 74 mmHg LA Respiratory Rate 16 /min BMI (Body Mass Index) 27.8 kg/m2 07/21/2014 Height 64 inches 5'4" Weight 169.00 lb Heart Rate 78 /min BP Systolic Sitting 116 mmHg left arm, reg cuff BP Diastolic Sitting 74 mmHg left arm, reg cuff Respiratory Rate 16 /min O2 % BldC Oximetry 97 % Room air BMI (Body Mass Index) 29.0 kg/m2 Neck Circumference in inches 15 07/13/2014 Height 64 inches 5'4" Weight 166.00 lb no shoes Heart Rate 70 /min BP Systolic Sitting 126 mmHg LA, reg cuff BP Diastolic Sitting 74 mmHg LA, reg cuff BP Systolic Standing 122 mmHg LA BP Diastolic Standing 78 mmHg LA Respiratory Rate 14 /min BMI (Body Mass Index) 28.5 kg/m2 06/24/2014 Height 64 inches 5'4" Weight 166.00 lb without shoes Heart Rate 76 /min BP Systolic Sitting 120 mmHg Ra reg cuff BP Diastolic Sitting 70 mmHg Ra reg cuff BP Systolic Standing 122 mmHg Ra reg cuff BP Diastolic Standing 70 mmHg Ra reg cuff Respiratory Rate 16 /min BMI (Body Mass Index) 28.5 kg/m2 06/17/2014 Height 64 inches 5'4" Weight 167.00 lb no shoes Heart Rate 78 /min BP Systolic Sitting 160 mmHg LA, Lg cuff BP Diastolic Sitting 82 mmHg LA, Lg cuff BP Systolic Standing 124 mmHg LA BP Diastolic Standing 80 mmHg LA Respiratory Rate 16 /min BMI (Body Mass Index) 28.7 kg/m2 05/25/2014 BP Systolic 158 mmHg right arm reg cuff BP Diastolic 86 mmHg right arm reg cuff BP Systolic Sitting 167 mmHg right arm home cuff BP Diastolic Sitting 93 mmHg right arm home cuff 05/25/2014 Heart Rate 87 /min BP Systolic 180 mmHg LA home cuff standing BP Diastolic 95 mmHg LA home cuff standing BP Systolic Sitting 164 mmHg LA reg cuff BP Diastolic Sitting 84 mmHg LA reg cuff Respiratory Rate 19 /min 05/20/2014 Height 64 inches 5'4" Weight 165.75 lb Heart Rate 84 /min regular BP Systolic 130 mmHg BP Diastolic 78 mmHg BP Systolic Sitting 130 mmHg right arm, lg cuff BP Diastolic Sitting 78 mmHg right arm, lg cuff BP Systolic Standing 132 mmHg right arm, lg cuff BP Diastolic Standing 84 mmHg right arm, lg cuff Respiratory Rate 16 /min BMI (Body Mass Index) 28.4 kg/m2 05/11/2014 Height 64 inches 5'4" Weight 168.00 lb with shoes Heart Rate 60 /min BP Systolic Sitting 106 mmHg Ra reg cuff BP Diastolic Sitting 80 mmHg Ra reg cuff BP Systolic Standing 100 mmHg Ra reg cuff BP Diastolic Standing 76 mmHg Ra reg cuff Respiratory Rate 16 /min BMI (Body Mass Index) 28.8 kg/m2 05/26/2013 Height 63.5 inches 5'3.50" Weight 177.00 lb up 3 lbs Heart Rate 80 /min BP Systolic Sitting 128 mmHg Ra reg cuff BP Diastolic Sitting 80 mmHg Ra reg cuff BP Systolic Standing 132 mmHg Ra BP Diastolic Standing 78 mmHg Ra Respiratory Rate 16 /min BMI (Body Mass Index) 30.9 kg/m2 Results Test Date Test Result H/L Range Note Xray 09/07/2017 CT Spine Cervical W/O <pending> CT Spine Lumbar W/O <pending> Myelography Cervical <pending> Myelography Lumbosacral <pending> Laboratory test finding 09/07/2017 Partial Thrombo Time 31.8 seconds 26.0 -36.3 PTT Platelet Count 09/07/2017 Platelet Count 254 10^3/uL 150-450 Mean Platelet Volume 8 um3 7.4-10.4 Inr/Protime 09/07/2017 Inr 0.94 0.77-1.02 Laboratory test finding 08/30/2016 TSH (Thyroid Stim 0.29 mcIU/mL Low 0.34 -5.60 Horm) T3 Free 3.30 pg/mL 2.5-3.9 Free T4 (Free Thyroxine) 1.08 ng/dL 0.61-1.12 Hemoglobin A1c (Glyco HGB) 5.3 % Less than 6.0 1 Laboratory test finding 08/30/2016 Magnesium 2.1 mg/dL 1.9-2.7 CBC Auto Diff 08/30/2016 White Blood Count 6.0 10^3/uL 3.5-10.8 Red Blood Count 4.49 10^6/uL 4.0-5.4 Hemoglobin 13.8 g/dL 12.0-16.0 Hematocrit 41 % 35-47 Mean Corpuscular Volume 92 fL 80-97 Mean Corpuscular Hemoglobin 31 pg 27-31 Mean Corpuscular HGB Conc 34 g/dL 31-36 Red Cell Distribution Width 15 % 10.5-15 Platelet Count 202 10^3/uL 150-450 Mean Platelet Volume 8 um3 7.4-10.4 Abs Neutrophils 2.2 10^3/uL 1.5-7.7 Abs Lymphocytes 2.8 10^3/uL 1.0-4.8 Abs Monocytes 0.6 10^3/uL 0-0.8 Abs Eosinophils 0.4 10^3/uL 0-0.6 Abs Basophils 0.1 10^3/uL 0-0.2 Abs Nucleated RBC 0 10^3/uL Granulocyte % 36.7 % Low 38-83 Lymphocyte % 46.2 % 25-47 Monocyte % 9.5 % High 1-9 Eosinophil % 6.3 % High 0-6 Basophil % 1.3 % 0-2 Nucleated Red Blood Cells % 0.1 Comp Metabolic Panel 08/30/2016 Sodium 140 mmol/L 133-145 Potassium 4.3 mmol/L 3.5-5.0 Chloride 103 mmol/L 101-111 Co2 Carbon Dioxide 32 mmol/L 22-32 Anion Gap 5 mmol/L 2-11 Glucose 97 mg/dL 70-100 Blood Urea Nitrogen 19 mg/dL 6-24 Creatinine 0.85 mg/dL 0.51-0.95 BUN/Creatinine Ratio 22.4 High 8-20 Calcium 9.3 mg/dL 8.6-10.3 Total Protein 6.9 g/dL 6.4-8.9 Albumin 3.9 g/dL 3.2-5.2 Globulin 3.0 g/dL 2-4 Albumin/Globulin Ratio 1.3 1-3 Total Bilirubin 1.00 mg/dL 0.2-1.0 Alkaline Phosphatase 59 U/L 34-104 Alt 11 U/L 7-52 Ast 15 U/L 13-39 Egfr Non- 66.3 >60 Egfr 85.3 >60 2 Basic Metabolic Panel 03/20/2016 Sodium 136 mmol/L 133-145 Potassium 3.9 mmol/L 3.5-5.0 Chloride 99 mmol/L Low 101-111 Co2 Carbon Dioxide 27 mmol/L 22-32 Anion Gap 10 mmol/L 2-11 Glucose 116 mg/dL High 70-100 Blood Urea Nitrogen 10 mg/dL 6-24 Creatinine 0.89 mg/dL 0.51-0.95 BUN/Creatinine Ratio 11.2 8-20 Calcium 9.3 mg/dL 8.6-10.3 Egfr Non- 62.9 >60 Egfr 80.9 >60 3 CBC Auto Diff 03/20/2016 White Blood Count 6.9 10^3/uL 3.5-10.8 Red Blood Count 4.35 10^6/uL 4.0-5.4 Hemoglobin 13.6 g/dL 12.0-16.0 Hematocrit 40 % 35-47 Mean Corpuscular Volume 93 fL 80-97 Mean Corpuscular Hemoglobin 31 pg 27-31 Mean Corpuscular HGB Conc 34 g/dL 31-36 Red Cell Distribution Width 14 % 10.5-15 Platelet Count 253 10^3/uL 150-450 Mean Platelet Volume 8 um3 7.4-10.4 Abs Neutrophils 2.9 10^3/uL 1.5-7.7 Abs Lymphocytes 2.8 10^3/uL 1.0-4.8 Abs Monocytes 0.7 10^3/uL 0-0.8 Abs Eosinophils 0.4 10^3/uL 0-0.6 Abs Basophils 0.1 10^3/uL 0-0.2 Abs Nucleated RBC 0 10^3/uL Granulocyte % 42.3 % 38-83 Lymphocyte % 40.0 % 25-47 Monocyte % 10.8 % High 1-9 Eosinophil % 5.4 % 0-6 Basophil % 1.5 % 0-2 Nucleated Red Blood Cells % 0 Laboratory test finding 03/20/2016 C Reactive Protein 2.58 mg/L < 5.00 4 Erythrocyte Sed Rate 31 mm/Hr 0-40 Thyroid Panel 03/20/2016 Free T4 (Free Thyroxine) 1.04 ng/dL 0.61-1.12 Thyroxine 8.89 ?g/dL 6.09-12.23 TSH (Thyroid Stim Horm) 1.60 mcIU/mL 0.34-5.60 Laboratory test finding 03/20/2016 Ast (Sgot) 21 U/L 13-39 Amylase 28 U/L Low 29-103 Lipase 40 U/L 11.0-82.0 Basic Metabolic Panel 02/29/2016 Sodium 138 mmol/L 133-145 Potassium 4.3 mmol/L 3.5-5.0 Chloride 101 mmol/L 101-111 Co2 Carbon Dioxide 29 mmol/L 22-32 Anion Gap 8 mmol/L 2-11 Glucose 100 mg/dL 70-100 Blood Urea Nitrogen 19 mg/dL 6-24 Creatinine 1.02 mg/dL High 0.51-0.95 BUN/Creatinine Ratio 18.6 8-20 Calcium 8.7 mg/dL 8.6-10.3 Egfr Non- 53.7 >60 Egfr 69.1 >60 5 Laboratory test finding 02/29/2016 Magnesium 1.8 mg/dL Low 1.9-2.7 6 Basic Metabolic Panel 10/27/2015 Sodium 136 mmol/L 133-145 Potassium 3.9 mmol/L 3.5-5.0 Chloride 99 mmol/L Low 101-111 Co2 Carbon Dioxide 29 mmol/L 22-32 Anion Gap 8 mmol/L 2-11 Glucose 92 mg/dL 70-100 Blood Urea Nitrogen 20 mg/dL 6-24 Creatinine 0.80 mg/dL 0.51-0.95 BUN/Creatinine Ratio 25.0 High 8-20 Calcium 9.0 mg/dL 8.6-10.3 Egfr Non- 71.3 >60 Egfr 91.7 >60 7 Laboratory test finding 10/27/2015 Magnesium 2.0 mg/dL 1.9-2.7 CBC Auto Diff 10/27/2015 White Blood Count 6.6 10^3/uL 3.5-10.8 Red Blood Count 3.95 10^6/uL Low 4.0-5.4 Hemoglobin 12.7 g/dL 12.0-16.0 Hematocrit 37 % 35-47 Mean Corpuscular Volume 93 fL 80-97 Mean Corpuscular Hemoglobin 32 pg High 27-31 Mean Corpuscular HGB Conc 35 g/dL 31-36 Red Cell Distribution Width 13 % 10.5-15 Platelet Count 222 10^3/uL 150-450 Mean Platelet Volume 8 um3 7.4-10.4 Abs Neutrophils 2.7 10^3/uL 1.5-7.7 Abs Lymphocytes 2.9 10^3/uL 1.0-4.8 Abs Monocytes 0.6 10^3/uL 0-0.8 Abs Eosinophils 0.3 10^3/uL 0-0.6 Abs Basophils 0.1 10^3/uL 0-0.2 Abs Nucleated RBC 0 10^3/uL Granulocyte % 40.5 % 38-83 Lymphocyte % 44.0 % 25-47 Monocyte % 9.3 % High 1-9 Eosinophil % 5.1 % 0-6 Basophil % 1.1 % 0-2 Nucleated Red Blood Cells % 0.1 CBC Auto Diff 08/12/2015 White Blood Count 9.3 10^3/uL 3.5-10.8 Red Blood Count 4.39 10^6/uL 4.0-5.4 Hemoglobin 13.6 g/dL 12.0-16.0 Hematocrit 42 % 35-47 Mean Corpuscular Volume 95 fL 80-97 Mean Corpuscular Hemoglobin 31 pg 27-31 Mean Corpuscular HGB Conc 32 g/dL 31-36 Red Cell Distribution Width 14 % 10.5-15 Platelet Count 248 10^3/uL 150-450 Mean Platelet Volume 8 um3 7.4-10.4 Abs Neutrophils 4.9 10^3/uL 1.5-7.7 Abs Lymphocytes 3.3 10^3/uL 1.0-4.8 Abs Monocytes 0.8 10^3/uL 0-0.8 Abs Eosinophils 0.2 10^3/uL 0-0.6 Abs Basophils 0.1 10^3/uL 0-0.2 Abs Nucleated RBC 0.01 10^3/uL Granulocyte % 53.2 % 38-83 Lymphocyte % 35.1 % 25-47 Monocyte % 8.3 % 1-9 Eosinophil % 2.3 % 0-6 Basophil % 1.1 % 0-2 Nucleated Red Blood Cells % 0.1 Comp Metabolic Panel 08/12/2015 Sodium 135 mmol/L 133-145 Potassium 4.7 mmol/L 3.5-5.0 Chloride 97 mmol/L Low 101-111 Co2 Carbon Dioxide 29 mmol/L 22-32 Anion Gap 9 mmol/L 2-11 Glucose 94 mg/dL 70-100 Blood Urea Nitrogen 23 mg/dL 6-24 Creatinine 0.90 mg/dL 0.51-0.95 BUN/Creatinine Ratio 25.6 High 8-20 Calcium 9.7 mg/dL 8.6-10.3 Total Protein 7.4 g/dL 6.4-8.9 Albumin 4.1 g/dL 3.2-5.2 Globulin 3.3 g/dL 2-4 Albumin/Globulin Ratio 1.2 1-3 Total Bilirubin 0.60 mg/dL 0.2-1.0 Alkaline Phosphatase 68 U/L 34-104 Alt 13 U/L 7-52 Ast 15 U/L 13-39 Egfr Non- 62.3 >60 Egfr 80.1 >60 8 Laboratory test finding 08/12/2015 TSH (Thyroid Stim 0.30 ?IU/mL Low 0.34- 5.60 Horm) T3 Free 2.80 pg/mL 2.5-3.9 Free T4 (Free Thyroxine) 1.38 ng/mL High 0.61-1.12 Vitamin B12 > 1450 pg/mL High 180-914 9 Vitamin D Total 25(Oh) 55.3 ng/mL High 30-50 Basic Metabolic Panel 02/09/2015 Sodium 134 mmol/L 133-145 Potassium 4.1 mmol/L 3.5-5.0 Chloride 101 mmol/L 101-111 Co2 Carbon Dioxide 25 mmol/L 22-32 Anion Gap 8 mmol/L 2-11 Glucose 96 mg/dL 70-100 Blood Urea Nitrogen 24 mg/dL 6-24 Creatinine 0.92 mg/dL 0.51-0.95 BUN/Creatinine Ratio 26.1 High 8-20 Calcium 9.0 mg/dL 8.6-10.3 Egfr Non- 60.7 >60 Egfr 78.1 >60 10 Laboratory test finding 02/09/2015 B-Type Natriuretic 69 pg/mL 11 Peptide BNP Laboratory test finding 10/06/2014 Activated Partial 33.4 seconds 26.0- 36.3 12 Thrombo Time Inr/Protime 10/06/2014 Inr 0.97 0.78-1.07 Basic Metabolic Panel 10/06/2014 Sodium 139 mmol/L 133-145 Potassium 4.3 mmol/L 3.5-5.0 Chloride 105 mmol/L 101-111 Co2 Carbon Dioxide 28 mmol/L 22-32 Anion Gap 6 mmol/L 2-11 Glucose 97 mg/dL 70-100 Blood Urea Nitrogen 20 mg/dL 6-24 Creatinine 0.97 mg/dL High 0.51-0.95 BUN/Creatinine Ratio 20.6 High 8-20 Calcium 8.8 mg/dL 8.6-10.3 Egfr Non- 57.3 >60 Egfr 73.7 >60 13 CBC No Diff 10/06/2014 White Blood Count 10.2 10^3/uL 4.8-10.8 Red Blood Count 3.65 10^6/uL Low 4.0-5.4 Hemoglobin 12.2 g/dL 12.0-16.0 Hematocrit 36 % 35-47 Mean Corpuscular Volume 98 fL High 80-97 Mean Corpuscular Hemoglobin 33 pg High 27-31 Mean Corpuscular HGB Conc 34 g/dL 31-36 Red Cell Distribution Width 13 % 10.5-15 Platelet Count 248 10^3/uL 150-450 Mean Platelet Volume 8 um3 7.4-10.4 Surgical Pathology 10/06/2014 S RUN DATE: 10/07/ <SEE NOTE> 14 Laboratory test finding 10/01/2014 Acth 58 pg/mL 15 Dhea Sulfate 21.8 g/dL <15-157 16 Laboratory test finding 09/18/2014 Magnesium 1.9 mg/dL 1.9-2.7 Basic Metabolic Panel 09/18/2014 Sodium 137 mmol/L 133-145 Potassium 3.9 mmol/L 3.5-5.0 Chloride 100 mmol/L Low 101-111 Co2 Carbon Dioxide 31 mmol/L 22-32 Anion Gap 6 mmol/L 2-11 Glucose 107 mg/dL High 70-100 Blood Urea Nitrogen 12 mg/dL 6-24 Creatinine 1.04 mg/dL High 0.51-0.95 BUN/Creatinine Ratio 11.5 8-20 Calcium 9.3 mg/dL 8.6-10.3 Egfr Non- 52.9 >60 Egfr 68.0 >60 17 Basic Metabolic Panel 09/01/2014 Sodium 138 mmol/L 133-145 Potassium 4.4 mmol/L 3.5-5.0 Chloride 102 mmol/L 101-111 Co2 Carbon Dioxide 28 mmol/L 22-32 Anion Gap 8 mmol/L 2-11 Glucose 96 mg/dL 70-100 Blood Urea Nitrogen 19 mg/dL 6-24 Creatinine 0.91 mg/dL 0.51-0.95 BUN/Creatinine Ratio 20.9 High 8-20 Calcium 8.7 mg/dL 8.6-10.3 Egfr Non- 61.7 >60 Egfr 79.3 >60 18 Urine Culture And 08/14/2014 Urine Culture (SEE NOTE) 19, 20 Sensitivities Laboratory test finding 08/14/2014 B Type Natriuretic 24 pg/mL 21 Peptide Comp Metabolic Panel 08/14/2014 Sodium 136 mmol/L 133-145 Potassium 4.2 mmol/L 3.5-5.0 Chloride 104 mmol/L 101-111 Co2 Carbon Dioxide 26 mmol/L 22-32 Anion Gap 6 mmol/L 2-11 Glucose 91 mg/dL 70-100 Blood Urea Nitrogen 35 mg/dL High 6-24 Creatinine 1.28 mg/dL High 0.51-0.95 BUN/Creatinine Ratio 27.3 High 8-20 Calcium 8.0 mg/dL Low 8.6-10.3 Total Protein 7.1 g/dL 6.4-8.9 Albumin 4.1 g/dL 3.2-5.2 Globulin 3.0 g/dL 2-4 Albumin/Globulin Ratio 1.4 1-3 Total Bilirubin 0.60 mg/dL 0.2-1.0 Alkaline Phosphatase 61 U/L 34-104 Alt 17 U/L 7-52 Ast 19 U/L 13-39 Egfr Non- 41.6 >60 Egfr 53.5 >60 22 CBC Auto Diff 08/14/2014 White Blood Count 8.6 10^3/uL 4.8-10.8 Red Blood Count 4.25 10^6/uL 4.0-5.4 Hemoglobin 14.2 g/dL 12.0-16.0 Hematocrit 42 % 35-47 Mean Corpuscular Volume 98 fL High 80-97 Mean Corpuscular Hemoglobin 33 pg High 27-31 Mean Corpuscular HGB Conc 34 g/dL 31-36 Red Cell Distribution Width 14 % 10.5-15 Platelet Count 252 10^3/uL 150-450 Mean Platelet Volume 8 um3 7.4-10.4 Abs Neutrophils 4.6 10^3/uL 1.5-7.7 Abs Lymphocytes 2.8 10^3/uL 1.0-4.8 Abs Monocytes 1.0 10^3/uL High 0-0.8 Abs Eosinophils 0.1 10^3/uL 0-0.6 Abs Basophils 0.1 10^3/uL 0-0.2 Abs Nucleated RBC 0.01 10^3/uL Granulocyte % 53.7 % 38-83 Lymphocyte % 32.3 % 25-47 Monocyte % 11.8 % High 1-9 Eosinophil % 1.6 % 0-6 Basophil % 0.6 % 0-2 Nucleated Red Blood Cells % 0.1 Urinalysis Profile 08/14/2014 Urine Color Yellow Urine Appearance Cloudy Urine Specific [place] 1.017 1.010-1.030 Urine pH 5.0 5-9 Urine Urobilinogen Negative Negative Urine Ketones Negative Negative Urine Protein Negative Negative Urine Leukocytes Negative Negative Urine Blood Negative Negative * * Negative 23 Urine Nitrite Negative Negative Urine Bilirubin Negative Negative Urine Glucose Negative Negative Laboratory test finding 08/14/2014 Uric Acid 6.4 mg/dL 2.3-6.6 Basic Metabolic Panel 07/14/2014 Sodium 133 mmol/L 133-145 24 Potassium 4.1 mmol/L 3.5-5.0 24 Chloride 99 mmol/L Low 101-111 24 Co2 Carbon Dioxide 29 mmol/L 22-32 24 Anion Gap 5 mmol/L 2-11 24 Glucose 104 mg/dL High 70-100 24 Blood Urea Nitrogen 26 mg/dL High 6-24 24 Creatinine 1.03 mg/dL High 0.51-0.95 24 BUN/Creatinine Ratio 25.2 High 8-20 24 Calcium 8.8 mg/dL 8.6-10.3 24 Egfr Non- 53.4 >60 24 Egfr 68.7 >60 24, 25 Basic Metabolic Panel 07/06/2014 Sodium 135 mmol/L 133-145 26 Potassium 4.3 mmol/L 3.5-5.0 26, 27 Chloride 102 mmol/L 101-111 26 Co2 Carbon Dioxide 24 mmol/L 22-32 26 Anion Gap 9 mmol/L 2-11 26 Glucose 119 mg/dL High 70-100 26 Blood Urea Nitrogen 39 mg/dL High 6-24 26 Creatinine 1.43 mg/dL High 0.51-0.95 26 BUN/Creatinine Ratio 27.3 High 8-20 26 Calcium 9.2 mg/dL 8.6-10.3 26 Egfr Non- 36.6 >60 26 Egfr 47.1 >60 26, 28 Laboratory test finding 07/06/2014 Magnesium 2.1 mg/dL 1.9-2.7 26, 29 Basic Metabolic Panel 06/05/2014 Sodium 135 mmol/L 133-145 Potassium 4.0 mmol/L 3.7-5.6 Chloride 101 mmol/L 101-111 Co2 Carbon Dioxide 28 mmol/L 22-32 Anion Gap 6 mmol/L 2-11 Glucose 91 mg/dL 70-100 Blood Urea Nitrogen 28 mg/dL High 6-24 Creatinine 1.07 mg/dL High 0.51-0.95 BUN/Creatinine Ratio 26.2 High 8-20 Calcium 9.1 mg/dL 8.6-10.3 Egfr Non- 51.1 >60 Egfr 65.8 >60 30 Basic Metabolic Panel 05/18/2014 Sodium 136 mmol/L 133-145 31 Potassium 4.2 mmol/L 3.7-5.6 31 Chloride 101 mmol/L 101-111 31 Co2 Carbon Dioxide 27 mmol/L 22-32 31 Anion Gap 8 mmol/L 2-11 31 Glucose 104 mg/dL High 70-100 31 Blood Urea Nitrogen 24 mg/dL 6-24 31 Creatinine 1.10 mg/dL High 0.51-0.95 31 BUN/Creatinine Ratio 21.8 High 8-20 31 Calcium 9.1 mg/dL 8.6-10.3 31 Egfr Non- 49.5 >60 31 Egfr 63.7 >60 31, 32 Comp Metabolic Panel 07/21/2013 Sodium 138 mmol/L 133-145 Potassium 3.8 mmol/L 3.5-5.0 Chloride 101 mmol/L 101-111 Co2 Carbon Dioxide 30.0 mmol/L 22-32 Anion Gap 7.0 mmol/L 2-11 Glucose 110 mg/dL High 70-100 Blood Urea Nitrogen 18 mg/dL 6-24 Creatinine 0.90 mg/dL 0.50-1.40 BUN/Creatinine Ratio 20.0 8-20 Calcium 8.8 mg/dL 8.1-9.9 Total Protein 7.0 g/dL 6.2-8.1 Albumin 4.0 g/dL 3.2-5.2 Globulin 3.0 g/dL 2-4 Albumin/Globulin Ratio 1.3 1-3 Total Bilirubin 1.2 mg/dL 0.4-1.5 Alkaline Phosphatase 48 U/L 30-110 Alt 24 U/L 14-54 Ast 24 U/L 12-42 Egfr Non- 62.6 >60 Egfr 80.6 >60 33 Laboratory test finding 07/21/2013 Hemoglobin A1c 6.2 % High Less than 6.0 34 Free T4 0.75 ng/mL 0.61-1.24 35 TSH (Thyroid Stimulating Horm) 2.16 miu/mL 0.34-5.60 36 Urine Microalbumin Random 07/21/2013 Ur Microalbumin (mg/L) 7.0 mg/L 37 Urine Creatinine 266.4 mg/dL Urine Microalbumin/Creatinine 2.6 Less Than 31 Laboratory test finding 03/27/2013 Erythrocyte Sed Rate 28 mm/Hr 0-40 Rheumatoid Factor <15 IU/mL <15 38 CBC No Diff 03/27/2013 White Blood Count 6.8 10^3/uL 4.8-10.8 Red Blood Count 4.27 10^6/uL 4.0-5.4 Hemoglobin 13.5 g/dL 12.0-16.0 Hematocrit 39 % 35-47 Mean Corpuscular Volume 92 fL 80-97 Mean Corpuscular Hemoglobin 32 pg High 27-31 Mean Corpuscular HGB Conc 34 g/dL 31-36 Red Cell Distribution Width 14 % 10.5-15 Platelet Count 244 10^3/uL 150-450 Mean Platelet Volume 8 um3 7.4-10.4 Laboratory test finding 03/27/2013 Potassium 4.2 mmol/L 3.5-5.0 Magnesium 2.2 mg/dL 1.7-2.6 C Reactive Protein 2.0 mg/dL High Less than 0.5 Basic Metabolic Panel 03/27/2013 Sodium 138 mmol/L 133-145 Potassium 4.1 mmol/L 3.5-5.0 Chloride 102 mmol/L 101-111 Co2 Carbon Dioxide 26.0 mmol/L 22-32 Anion Gap 10.0 mmol/L 2-11 Glucose 111 mg/dL High 70-100 Blood Urea Nitrogen 15 mg/dL 6-24 Creatinine 0.70 mg/dL 0.50-1.40 BUN/Creatinine Ratio 21.4 High 8-20 Calcium 9.1 mg/dL 8.1-9.9 Egfr Non- 83.7 >60 Egfr 107.7 >60 39 Laboratory test finding 07/19/2012 Uric Acid 8.5 mg/dL High 2.6-7.2 Free T4 1.09 ng/mL 0.61-1.24 TSH (Thyroid Stimulating Horm) 0.42 miu/mL 0.34-5.60 1 Therapeutic target for the treatment of diabetes Mellitus patients is <7% HBA1C, and in selective patients <6.0%.Please refer to [place] [employer] Diabetic care guidelines for further information. 2 Because ethnic data is not always readily available, this report includes an eGFR for both -Americans and non- Americans. The National Kidney Disease Education Program (NKDEP) does not endorse the use of the MDRD equation for patients that are not between the ages of 18 and 70, are , have extremes of body size, muscle mass, or nutritional status, or are non- or non-. According to the National Kidney Foundation, irrespective of diagnosis, the stage of the disease is based on the level of kidney function: Stage Description GFR(mL/min/1.73 m(2)) 1 Kidney damage with normal or decreased GFR 90 2 Kidney damage with mild decrease in GFR 60-89 3 Moderate decrease in GFR 30-59 4 Severe decrease in GFR 15-29 5 Kidney failure <15 (or dialysis) 3 Because ethnic data is not always readily available, this report includes an eGFR for both -Americans and non- Americans. The National Kidney Disease Education Program (NKDEP) does not endorse the use of the MDRD equation for patients that are not between the ages of 18 and 70, are , have extremes of body size, muscle mass, or nutritional status, or are non- or non-. According to the National Kidney Foundation, irrespective of diagnosis, the stage of the disease is based on the level of kidney function: Stage Description GFR(mL/min/1.73 m(2)) 1 Kidney damage with normal or decreased GFR 90 2 Kidney damage with mild decrease in GFR 60-89 3 Moderate decrease in GFR 30-59 4 Severe decrease in GFR 15-29 5 Kidney failure <15 (or dialysis) 4 Acute inflammation: >10.00 5 Because ethnic data is not always readily available, this report includes an eGFR for both -Americans and non- Americans. The National Kidney Disease Education Program (NKDEP) does not endorse the use of the MDRD equation for patients that are not between the ages of 18 and 70, are , have extremes of body size, muscle mass, or nutritional status, or are non- or non-. According to the National Kidney Foundation, irrespective of diagnosis, the stage of the disease is based on the level of kidney function: Stage Description GFR(mL/min/1.73 m(2)) 1 Kidney damage with normal or decreased GFR 90 2 Kidney damage with mild decrease in GFR 60-89 3 Moderate decrease in GFR 30-59 4 Severe decrease in GFR 15-29 5 Kidney failure <15 (or dialysis) 6 3-4 weeks, meds adjusted Copy Result to: BRITTANY MORATAYA BIBI ([id number]) 7 Because ethnic data is not always readily available, this report includes an eGFR for both -Americans and non- Americans. The National Kidney Disease Education Program (NKDEP) does not endorse the use of the MDRD equation for patients that are not between the ages of 18 and 70, are , have extremes of body size, muscle mass, or nutritional status, or are non- or non-. According to the National Kidney Foundation, irrespective of diagnosis, the stage of the disease is based on the level of kidney function: Stage Description GFR(mL/min/1.73 m(2)) 1 Kidney damage with normal or decreased GFR 90 2 Kidney damage with mild decrease in GFR 60-89 3 Moderate decrease in GFR 30-59 4 Severe decrease in GFR 15-29 5 Kidney failure <15 (or dialysis) 8 Because ethnic data is not always readily available, this report includes an eGFR for both -Americans and non- Americans. The National Kidney Disease Education Program (NKDEP) does not endorse the use of the MDRD equation for patients that are not between the ages of 18 and 70, are , have extremes of body size, muscle mass, or nutritional status, or are non- or non-. According to the National Kidney Foundation, irrespective of diagnosis, the stage of the disease is based on the level of kidney function: Stage Description GFR(mL/min/1.73 m(2)) 1 Kidney damage with normal or decreased GFR 90 2 Kidney damage with mild decrease in GFR 60-89 3 Moderate decrease in GFR 30-59 4 Severe decrease in GFR 15-29 5 Kidney failure <15 (or dialysis) 9 Normal Range 180 to 914 Indeterminate Range 145 to 180 Deficient Range <145 10 Because ethnic data is not always readily available, this report includes an eGFR for both -Americans and non- Americans. The National Kidney Disease Education Program (NKDEP) does not endorse the use of the MDRD equation for patients that are not between the ages of 18 and 70, are , have extremes of body size, muscle mass, or nutritional status, or are non- or non-. According to the National Kidney Foundation, irrespective of diagnosis, the stage of the disease is based on the level of kidney function: Stage Description GFR(mL/min/1.73 m(2)) 1 Kidney damage with normal or decreased GFR 90 2 Kidney damage with mild decrease in GFR 60-89 3 Moderate decrease in GFR 30-59 4 Severe decrease in GFR 15-29 5 Kidney failure <15 (or dialysis) 11 >100 to <200 pg/mL: likely compensated congestive heart failure (CHF) 200 to 400 pg/mL: likely moderate CHF >400 pg/mL: likely moderate to severe CHF 12 Effective October 02, 2014 at 12:00pm there is an updated reference range. 13 Because ethnic data is not always readily available, this report includes an eGFR for both -Americans and non- Americans. The National Kidney Disease Education Program (NKDEP) does not endorse the use of the MDRD equation for patients that are not between the ages of 18 and 70, are , have extremes of body size, muscle mass, or nutritional status, or are non- or non-. According to the National Kidney Foundation, irrespective of diagnosis, the stage of the disease is based on the level of kidney function: Stage Description GFR(mL/min/1.73 m(2)) 1 Kidney damage with normal or decreased GFR 90 2 Kidney damage with mild decrease in GFR 60-89 3 Moderate decrease in GFR 30-59 4 Severe decrease in GFR 15-29 5 Kidney failure <15 (or dialysis) 14 RUN DATE: 10/07/14 [facility] LAB LIVE PAGE 1 RUN TIME: [address] [place] [id number] Specimen Inquiry Name: AUDRA VIRK : [address]: Sergio Carter MD Acct: [id number] Unit: [id number] AGE: 68 Location: [facility] Re10/06/14 SEX: F Status: REG REF SPEC: [id number] JORDYN: 10/06/14- [facility] DR: Sergio Carter MD REQ: [id number] RECD: 10/06/14 STATUS: SOUT _ ORDERED: LEVEL I FINAL DIAGNOSIS Defibrillator generator, removal: Foreign body (ICD generator) (Gross diagnosis). CLINICAL HISTORY No history given GROSS DESCRIPTION The specimen is received fresh labeled, ICD Generator, and consists of a 6.3 x 5.0 x 1.5 cm silver metallic medical laboratory manager. The following inscription is identified: [email or web address] SN [id number]. Per established hospital medical staff protocol, no tissue is submitted. Gross only. Signed (signature on file) Misael Yanez MD [id number] END OF REPORT * ML=Testing performed at Main Lab DEPARTMENT OF PATHOLOGY, [address] [place] [address] Misael Yanez M.D. Director ERIS # [id number] 15 REFERENCE VALUE 10-60 (a.m. collection) Test Performed by: [facility] [place] [address] Grader Meat: Mao Lucero II, M.D., Ph.D. 16 Test Performed by: [facility] [place] [address] [employer]: Mao Lucero II, M.D., Ph.D. 17 Because ethnic data is not always readily available, this report includes an eGFR for both -Americans and non- Americans. The National Kidney Disease Education Program (NKDEP) does not endorse the use of the MDRD equation for patients that are not between the ages of 18 and 70, are , have extremes of body size, muscle mass, or nutritional status, or are non- or non-. According to the National Kidney Foundation, irrespective of diagnosis, the stage of the disease is based on the level of kidney function: Stage Description GFR(mL/min/1.73 m(2)) 1 Kidney damage with normal or decreased GFR 90 2 Kidney damage with mild decrease in GFR 60-89 3 Moderate decrease in GFR 30-59 4 Severe decrease in GFR 15-29 5 Kidney failure <15 (or dialysis) 18 Because ethnic data is not always readily available, this report includes an eGFR for both -Americans and non- Americans. The National Kidney Disease Education Program (NKDEP) does not endorse the use of the MDRD equation for patients that are not between the ages of 18 and 70, are , have extremes of body size, muscle mass, or nutritional status, or are non- or non-. According to the National Kidney Foundation, irrespective of diagnosis, the stage of the disease is based on the level of kidney function: Stage Description GFR(mL/min/1.73 m(2)) 1 Kidney damage with normal or decreased GFR 90 2 Kidney damage with mild decrease in GFR 60-89 3 Moderate decrease in GFR 30-59 4 Severe decrease in GFR 15-29 5 Kidney failure <15 (or dialysis) 19 UA unremarkable, symptoms from overdiuresis, no repeat UC planned. 20 RUN DATE: 08/16/14 [facility] LIVE PAGE 1 RUN TIME: [address] [place] [id number] Specimen Inquiry Name: AUDRA VIRK : [address]: Rosio Patterson MD Acct: [id number] Unit: [id number] AGE: 68 Location: LAB Re08/14/14 SEX: F Status: REG REF SPEC: [id number] JORDYN: 08/14/[address]: Rosio Patterson MD REQ: [id number] RECD: 08/14/14 STATUS: LANDRY GAMBINO DR: Brittany Morataya DO _ SOURCE: URINE SPDESC: ORDERED: Urine Culture QUERIES: Provider Requisition # [id number] Procedure Result Verified Site Urine Culture Final 08/16/14- 910 ML Organism 1 NORMAL SHONDA Duncan Count >100,000 (Many) CFU/ML END OF REPORT * ML=Testing performed at Main Lab DEPARTMENT OF PATHOLOGY, [address] [place] [address] Misael Yanez M.D. Director [facility] # [id number] 21 >100 to <200 pg/mL: likely compensated congestive heart failure (CHF) 200 to 400 pg/mL: likely moderate CHF >400 pg/mL: likely moderate to severe CHF [facility] 22 Because ethnic data is not always readily available, this report includes an eGFR for both -Americans and non- Americans. The National Kidney Disease Education Program (NKDEP) does not endorse the use of the MDRD equation for patients that are not between the ages of 18 and 70, are , have extremes of body size, muscle mass, or nutritional status, or are non- or non-. According to the National Kidney Foundation, irrespective of diagnosis, the stage of the disease is based on the level of kidney function: Stage Description GFR(mL/min/1.73 m(2)) 1 Kidney damage with normal or decreased GFR 90 2 Kidney damage with mild decrease in GFR 60-89 3 Moderate decrease in GFR 30-59 4 Severe decrease in GFR 15-29 5 Kidney failure <15 (or dialysis) 23 *Ascorbic acid is present which may interfere with detection of blood. 24 PATIENT IS FASTING 25 Because ethnic data is not always readily available, this report includes an eGFR for both -Americans and non- Americans. The National Kidney Disease Education Program (NKDEP) does not endorse the use of the MDRD equation for patients that are not between the ages of 18 and 70, are , have extremes of body size, muscle mass, or nutritional status, or are non- or non-. According to the National Kidney Foundation, irrespective of diagnosis, the stage of the disease is based on the level of kidney function: Stage Description GFR(mL/min/1.73 m(2)) 1 Kidney damage with normal or decreased GFR 90 2 Kidney damage with mild decrease in GFR 60-89 3 Moderate decrease in GFR 30-59 4 Severe decrease in GFR 15-29 5 Kidney failure <15 (or dialysis) 26 1 week after starting eplerenone- non-fasting 27 Potassium reference range changed effective 06/07/14 28 Because ethnic data is not always readily available, this report includes an eGFR for both -Americans and non- Americans. The National Kidney Disease Education Program (NKDEP) does not endorse the use of the MDRD equation for patients that are not between the ages of 18 and 70, are , have extremes of body size, muscle mass, or nutritional status, or are non- or non-. According to the National Kidney Foundation, irrespective of diagnosis, the stage of the disease is based on the level of kidney function: Stage Description GFR(mL/min/1.73 m(2)) 1 Kidney damage with normal or decreased GFR 90 2 Kidney damage with mild decrease in GFR 60-89 3 Moderate decrease in GFR 30-59 4 Severe decrease in GFR 15-29 5 Kidney failure <15 (or dialysis) 29 1 week after starting eplerenone- non-fasting 30 Because ethnic data is not always readily available, this report includes an eGFR for both -Americans and non- Americans. The National Kidney Disease Education Program (NKDEP) does not endorse the use of the MDRD equation for patients that are not between the ages of 18 and 70, are , have extremes of body size, muscle mass, or nutritional status, or are non- or non-. According to the National Kidney Foundation, irrespective of diagnosis, the stage of the disease is based on the level of kidney function: Stage Description GFR(mL/min/1.73 m(2)) 1 Kidney damage with normal or decreased GFR 90 2 Kidney damage with mild decrease in GFR 60-89 3 Moderate decrease in GFR 30-59 4 Severe decrease in GFR 15-29 5 Kidney failure <15 (or dialysis) 31 in 7-10 days 32 Because ethnic data is not always readily available, this report includes an eGFR for both -Americans and non- Americans. The National Kidney Disease Education Program (NKDEP) does not endorse the use of the MDRD equation for patients that are not between the ages of 18 and 70, are , have extremes of body size, muscle mass, or nutritional status, or are non- or non-. According to the National Kidney Foundation, irrespective of diagnosis, the stage of the disease is based on the level of kidney function: Stage Description GFR(mL/min/1.73 m(2)) 1 Kidney damage with normal or decreased GFR 90 2 Kidney damage with mild decrease in GFR 60-89 3 Moderate decrease in GFR 30-59 4 Severe decrease in GFR 15-29 5 Kidney failure <15 (or dialysis) 33 Because ethnic data is not always readily available, this report includes an eGFR for both -Americans and non- Americans. The National Kidney Disease Education Program ([facility]DEP) does not endorse the use of the MDRD equation for patients that are not between the ages of 18 and 70, are , have extremes of body size, muscle mass, or nutritional status, or are non- or non-. According to the National Kidney Foundation, irrespective of diagnosis, the stage of the disease is based on the level of kidney function: Stage Description GFR(mL/min/1.73 m(2)) 1 Kidney damage with normal or decreased GFR 90 2 Kidney damage with mild decrease in GFR 60-89 3 Moderate decrease in GFR 30-59 4 Severe decrease in GFR 15-29 5 Kidney failure <15 (or dialysis) 34 Therapeutic target for the treatment of diabetes Mellitus patients is <7% HBA1C, and in selective patients <6.0%.Please refer to [place] Diabetes Association Diabetic care guidelines for further information. 35 FASTING 36 FASTING 37 Microalbuminuria in a random sample is defined as: Microalbumin/Creatinine ratio of 30-299 ug/mg. 38 Test Performed by: [address] [address] Grader Meat: Campos Christianson III, M.D. 39 Because ethnic data is not always readily available, this report includes an eGFR for both -Americans and non- Americans. The National Kidney Disease Education Program (NKDEP) does not endorse the use of the MDRD equation for patients that are not between the ages of 18 and 70, are , have extremes of body size, muscle mass, or nutritional status, or are non- or non-. According to the National Kidney Foundation, irrespective of diagnosis, the stage of the disease is based on the level of kidney function: Stage Description GFR(mL/min/1.73 m(2)) 1 Kidney damage with normal or decreased GFR 90 2 Kidney damage with mild decrease in GFR 60-89 3 Moderate decrease in GFR 30-59 4 Severe decrease in GFR 15-29 5 Kidney failure <15 (or dialysis) Procedures Date CPT Code Description Status 09/10/2017 85841 Closed TRTMT Supracondylar Completed 07/24/2017 66773 Interrogation Implant Cardiovasc Monitor System Incl Completed Analysis Int 07/24/2017 39358 Interrogation Implant Cardiovasc Monitor System Incl Completed Analysis Int 07/24/2017 63196 Icd Eval With Inerative Adjustmt Dual Lead System Completed 07/24/2017 18802 Icd Eval With Inerative Adjustmt Dual Lead System Completed 03/29/2017 59060 Icd Check Single,Dual Or Multiple In Person W/ Incl Completed Heart Rhyth 03/01/2017 48068 Interrogation Implant Cardiovasc Monitor System Incl Completed Analysis Int 03/01/2017 14370 Icd Eval With Inerative Adjustmt Dual Lead System Completed 02/07/2017 Bone Mineral Density Test Completed 11/16/2016 71725 Icd Check Single,Dual Or Multiple In Person W/DR Incl Completed Heart Rhyth 10/31/2016 74165 Icd Eval Sing,Dual,Multi Lead Remote Recpt Transm Tech Completed Rev Tech S 10/31/2016 10005 Icd Check Remote Up To 90 Days Single,Dual,Multiple Completed Lead 08/28/2016 02051 EKG Tracing & Interpretation Completed 04/21/2016 72211 Icd Eval Sing,Dual,Multi Lead Remote Recpt Transm Tech Completed Rev Tech S 04/21/2016 46969 Icd Check Remote Up To 90 Days Single,Dual,Multiple Completed Lead 03/30/2016 12896 ECHO Transthoracic, Real-Time 2D With Doppler And Color Completed Flow 03/20/2016 56778 EKG Tracing & Interpretation Completed 02/23/2016 80638 Interrogation Implant Cardiovasc Monitor System Incl Completed Analysis Int 02/23/2016 37212 Interrogation Device Eval In Person W/DR Completed Analysis,Single,Dual,Mul 02/01/2016 46954 Icd Eval With Inerative Adjustmt Dual Lead System Completed 02/01/2016 17410 EKG Tracing & Interpretation Completed 01/30/2016 79021 Icd Check Single,Dual Or Multiple In Person W/DR Incl Completed Heart Rhyth 10/28/2015 34986 Icd Eval With Inerative Adjustmt Dual Lead System Completed 10/28/2015 76361 Interrogation Implant Cardiovasc Monitor System Incl Completed Analysis Int 10/12/2015 98122 EKG Tracing & Interpretation Completed 10/11/2015 04893 Interrogation Implant Cardiovasc Monitor System Incl Completed Analysis Int 10/11/2015 77089 Icd Check Single,Dual Or Multiple In Person W/DR Incl Completed Heart Rhyth 07/28/2015 58713 Interrogation Implant Cardiovasc Monitor System Incl Completed Analysis Int 07/28/2015 40242 Icd Check Single,Dual Or Multiple In Person W/DR Incl Completed Heart Rhyth 06/21/2015 31145 Interrogation Implant Cardiovasc Monitor System Incl Completed Analysis Int 06/21/2015 20683 Icd Eval With Inerative Adjustmt Dual Lead System Completed 04/20/2015 12453 EKG Tracing & Interpretation Completed 04/14/2015 84989 EKG Tracing & Interpretation Completed 02/17/2015 55700 Interrogation Implant Cardiovasc Monitor System Incl Completed Analysis Int 02/17/2015 91497 Icd Check Single,Dual Or Multiple In Person W/DR Incl Completed Heart Rhyth 02/10/2015 80305 EKG Tracing & Interpretation Completed 10/30/2014 30163 EKG Tracing & Interpretation Completed 10/15/2014 28700 Icd Eval With Inerative Adjustmt Dual Lead System Completed 10/09/2014 04030 EKG, Interpretation Only Completed 10/08/2014 25220 EKG, Interpretation Only Completed 10/07/2014 65390 EKG, Interpretation Only Completed 10/06/2014 46608 Ep Eval Icd At Implant Completed 10/06/2014 44194 Removal Dual Lead Pacing Cardioverter-Defibrillator Completed W/Replacmt 09/22/2014 86386 ECHO Transthoracic, Real-Time 2D With Doppler And Color Completed Flow 09/21/2014 26348 Holter Monitoring 24 HR New Completed 09/21/2014 12161 EKG Tracing & Interpretation Completed 09/18/2014 97934 Interrogation Implant Cardiovasc Monitor System Incl Completed Analysis Int 09/18/2014 71610 Icd Eval With Inerative Adjustmt Dual Lead System Completed 08/17/2014 58691 Polysomnography Sleep Staging 4+ Parameters Completed 08/05/2014 91107 Interrogation Implant Cardiovasc Monitor System Incl Completed Analysis Int 08/05/2014 67500 Icd Check Single,Dual Or Multiple In Person W/DR Incl Completed Heart Rhyth 05/20/2014 35197 Icd Check Single,Dual Or Multiple In Person W/DR Incl Completed Heart Rhyth 05/11/2014 73902 Interrogation Implant Cardiovasc Monitor System Incl Completed Analysis Int 05/11/2014 98650 Icd Eval With Inerative Adjustmt Dual Lead System Completed 03/19/2014 79532 Icd Check Single,Dual Or Multiple In Person W/DR Incl Completed Heart Rhyth 03/19/2014 34865 Interrogation Implant Cardiovasc Monitor System Incl Completed Analysis Int 12/31/2013 33202 ECHO Transthoracic, Real-Time 2D With Doppler And Color Completed Flow 12/22/2013 53961 Icd Eval With Inerative Adjustmt Dual Lead System Completed 08/18/2013 84571 Interrogation Implant Cardiovasc Monitor System Incl Completed Analysis Int 08/18/2013 38046 Icd Eval With Inerative Adjustmt Dual Lead System Completed 04/17/2013 95994 Icd Eval With Inerative Adjustmt Dual Lead System Completed 02/12/2013 56408 ECHO Transthoracic, Real-Time 2D With Doppler And Color Completed Flow 02/05/2013 68174 Stress Test Completed 01/31/2013 61543 EKG Tracing & Interpretation Completed 01/30/2013 66421 Icd Eval With Inerative Adjustmt Dual Lead System Completed 10/02/2012 39414 Interrogation Implant Cardiovasc Monitor System Incl Completed Analysis Int 10/02/2012 95843 Icd Eval With Inerative Adjustmt Dual Lead System Completed 08/12/2012 Mammogram Completed 07/24/2012 67545 Interrogation Implant Cardiovasc Monitor System Incl Completed Analysis Int 07/24/2012 53136 Icd Eval With Inerative Adjustmt Dual Lead System Completed 07/02/2007 82637 EKG, Interpretation Only Completed 07/02/2007 19032 EKG, Interpretation Only Completed Encounters Type Date Location Provider CPT E/M Dx Office Visit 08/22/2017 [facility] Vassilios 56380 M54.2 3:30p Of Eduardo Mckoy MD M54.5 M47.892 M54.12 Office Visit 06/06/2017 8:30a Orthopedic Services Jason Cortez, 01518 M54.12 Of Jeanette Bueno Office Visit 03/01/2017 3:00p [facility] Jewels Patterson M.D. 30495 Z95.810 [facility] I47.1 I47.2 Office Visit 09/21/2016 11:45a [facility], Song Sharif, 79097 A41.9 Hospitalists MShantelle E23.0 I42.9 Office Visit 09/20/2016 11:44a [facility],ankit Delgado, 03198 A41.9 Hospitalists MShantelle E23.0 I42.9 Office Visit 08/28/2016 8:40a [facility] Jewels Patterson M.D. 95301 I42.9 [facility] Z95.810 I47.1 I49.3 I10 Office Visit 04/21/2016 11:20a [facility] Of Rosio Patterson M.D. 48135 I42.9 [facility] At [facility] Z95.810 I47.1 I49.3 I35.0 Office Visit 03/20/2016 1:15p [facility] Of [facility] Rosio Patterson M.D. 33828 R42 R11.0 M54.5 R43.9 J34.89 Office Visit 03/10/2016 9:45a [facility] Of [facility] LARISA Krishna 86302 Z95.810 R53.83 R53.81 I42.9 R42 I47.1 Office Visit 02/23/2016 11:30a [facility] Of [facility] LARISA Krishna 18331 I47.1 Z95.810 R53.83 I10 I42.9 Office Visit 02/01/2016 9:00a [facility] Of Rosio Patterson M.D. 85586 I47.1 [facility] R42 I42.8 Z95.810 Office Visit 01/30/2016 12:43p [facility] [place] [address] I42.9 [facility] I47.1 I49.3 Z95.810 Office Visit 12/07/2015 3:30p [facility] Of Rosio Patterson M.D. 33839 I42.9 [facility] I10 Office Visit 10/28/2015 3:00p [facility] Of Rosio Patterson M.D. 90052 I42.9 [facility] Z95.810 J01.90 R42 Office Visit 10/19/2015 2:00p [facility] Of [facility] LARISA Krishna 39315 I42.8 R42 I95.9 Office Visit 10/12/2015 2:45p [facility] Of Rosio Patterson M.D. 45229 I42.9 [facility] I47.2 J01.90 R42 I50.42 Z95.810 I10 Office Visit 07/28/2015 3:00p [facility] Of [facility] LARISA Krishna 86879 I47.2 I42.9 Z95.810 I10 I49.3 Office Visit 04/30/2015 8:00a [facility] Of Rosio Patterson M.D. 54456 I47.2 [facility] R41.1 R53.83 I10 E23.0 G47.33 Z95.810 Office Visit 04/20/2015 2:15p [facility] Of Rosio Patterson M.D. 35345 427.1 Impersonator Character 782.7 780.79 780.93 794.31 Office Visit 04/14/2015 1:30p [facility] Of Rosio Patterson M.D. 13150 427.1 [facility] V45.02 782.7 786.03 794.31 Office Visit 02/10/2015 9:00a [facility] Of [facility] LARISA Krishna 37358 425.4 401.9 427.0 427.1 786.05 427.69 Office Visit 10/09/2014 2:17p [facility] Of Rosio Patterson M.D. 56908 425.4 Impersonator Character 428.0 427.1 Office Visit 10/08/2014 11:08a [facility] Of Rosio Patterson M.D. 86809 427.0 Impersonator Character 425.4 427.69 Office Visit 10/07/2014 11:07a [facility] Of Rosio Patterson M.D. 50335 427.0 Impersonator Character 425.4 Office Visit 09/29/2014 4:00p [facility] Of Rosio Patterson M.D. 23390 425.4 Impersonator Character V45.02 780.4 427.1 Office Visit 09/24/2014 2:00p [facility] Of [facility] LARISA Krishna 31397 425.4 780.4 401.9 V45.02 427.69 Office Visit 09/21/2014 8:15a [facility] [place] Arianna Nuñ[place] [address] 327.23 Services Of [facility] 473.8 427.1 Office Visit 09/18/2014 1:30p [facility] Of [facility] LARISA Krishna 14212 425.4 401.9 780.79 427.1 V45.02 427.69 Office Visit 08/17/2014 8:30a [facility] Of [facility] LARISA Krishna 47057 425.4 401.9 786.05 Office Visit 08/14/2014 8:00a [facility] Of Rosio Patterson M.D. 83614 787.02 [facility] 443.0 425.4 427.1 599.89 Office Visit 07/21/2014 8:45a [facility] [place] Arianna Nuñ[place] [address] 780.59 Services Of [facility] 780.54 Office Visit 07/13/2014 2:00p [facility] Of [facility] LARISA Krishna 46743 425.4 428.0 401.9 Office Visit 06/24/2014 11:00a [facility] Of [facility] LARISA Krishna 70703 425.4 401.9 427.1 786.05 Office Visit 06/17/2014 8:00a [facility] Of Rosio Patterson M.D. 84184 401.9 [facility] 425.4 428.0 784.0 780.50 Office Visit 05/25/2014 3:45p [facility] [place] [address] 425.9 Office Visit 05/20/2014 9:30a [facility] Of [facility] LARISA Krishna 67193 425.9 427.1 V45.02 Office Visit 05/11/2014 11:45a [facility] Of Rosio Patterson M.D. 08550 V45.02 [facility] 425.9 786.05 428.0 Office Visit 01/16/2014 7:45a [facility] Of Rosio Patterson M.D. 94830 425.9 [facility] 427.1 427.0 V45.02 Office Visit 05/26/2013 8:45a [facility] Jewels Patterson M.D. 81045 425.4 [facility] 427.1 V45.02 780.50 Office Visit 03/09/2013 10:57a [facility] Morro Moy, 60628 786.50 [facility] 425.8 Office Visit 01/31/2013 3:15p [facility] Jewels Patterson M.D. 65611 V72.81 [facility] At [facility] 427.1 425.4 Office Visit 08/22/2012 3:15p [facility] [place] [address] 780.4 Office Visit 08/08/2012 9:45a [facility] Of [facility] Rosio Patterson M.D. 63380 425.4 786.09 428.0 427.1 Plan of Care Future Appointment(s):10/03/2017 9:15 am - [facility] - Mark Mckoy, MDM47.892 Other spondylosis , cervical anbsdpT65.121 Cervical disc disorder at C4-C5 level with cwcnmjhnlgisjR00.122 Cervical disc disorder at C5-C6 level with radiculopathyFollow up:Rv prn.
--- OUTSIDE RECORDS SUMMARY | 2017-10-01 21:15 | XMS REPORT ---
:1945 External Reference #:[id number] Author Organization [facility] Address [address] [place] [address] Phone [phone] Care Team Providers Name Role Phone Sang Kebede D.O. Primary Care Physician Unavailable Payers Type Date Identification Numbers Payment Provider Subscriber Medicare Primary Policy Number: [id number] Medicare - [facility] Alexa Pettiton PayID: [id number] [address] [place] [address] Commercial Policy Number: [id number] [place] [employer] Alexa Pettiton PayID: [id number] [address] [place] [address] Problems Date Description Provider Status Onset: Essential hypertension Active Onset: Arthritis Active Onset: Gout Active Onset: Gastroesophageal reflux disease Active Onset: Hypothyroidism Active Onset: Graves' disease Active Note: 2005 Onset: Congestive heart failure Active Onset: Thyroid nodule Active Onset: Cardiomyopathy Active Onset: 07/23/2015 Posterior subcapsular polar senile Bear Sanchez M.D. 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 Active Onset: 07/23/2015 Squamous blepharitis Bear Sanchez M.D. Active Onset: 07/23/2015 Presence of intraocular lens Bear Sanchez M.D. Active Onset: 08/12/2015 Combined form of senile cataract Bear Sanchez M.D. Active Onset: 05/30/2016 Vitreous degeneration Kavin Gomez M.D. Active Onset: 05/30/2016 Myopia Kavin Gomez M.D. Active Onset: 05/30/2016 Presbyopia Kavin Gomez M.D. 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 Active Onset: History of Smithfield disease Active Onset: 09/11/2017 Tear film insufficiency Kavin Gomez M.D. Active Onset: Type 2 diabetes mellitus Inactive Inactive: 07/23/2015 Family History Date Family Member(s) Problem(s) Comments Father Cataract Mother Cataract Social History Type Date Description Comments Marital Status Legal Status: Occupation [employer] Work Status Retired ETOH Use Occasionally consumes alcohol Smoking Patient has never smoked Recreational Drug Use Denies Drug Use Daily Caffeine Does Not Consume Caffeine Allergies, Adverse Reactions, Alerts Date Description Reaction Status Severity Comments 07/20/2015 Amoxicillin active 07/20/2015 Indocin active 07/20/2015 Sulfa Antibiotics active 07/20/2015 MSG active 07/20/2015 Contrast Dye active 07/20/2015 Tape active 07/20/2015 Bee Sting active 05/30/2016 Beta Adrenergic Blockers active 03/08/2017 Avalox active Medications Medication Date Status Form Strength Qnty SIG Indications Ordering Provider Synthroid Active Tablets 88mcg Mols /0000 Aurora Austin M.D. Eplerenone Active Tablets 25mg Yesenia, /0000 Rosio Bueno Furosemide Active Tablets 20mg Yesenia, /0000 Rosio Bueno Tikosyn Active Capsules 125mcg Yesenia, /0000 Rosio Bueno Sulindac Active Tablets 200mg [place], /0000 Sang D.O. Calcium 1000 + Active Tablets 1000-800m Unknown D /0000 g-Unit Famotidine Active Tablets 40mg Unknown /[address] 2000mg Unknown /0000 Cortef Active Tablets 5mg Take One Unknown /0000 Tablet By Mouth Every Morning And 1 2 Tablets By Mouth Every Refresh 00 Active Solution 1% 30ml 1 drop both Kavin Liquigel /0000 eyes daily Myles Gomez Gabapentin 00 Active Capsules 300mg [place], /0000 Sang D.O. Hydrocortisone 00/00 Active Tablets 5mg Unknown /0000 Enalapril 0000 Active Tablets 10mg Yalobusha, Maleate /0000 Rosio M.DMasoud Vitamin D 00 Active Tablets 2000Unit every day Unknown /0000 Neomycin/Polymy 03/08 Hx Ointment 3.5-84768 7gm apply a thin H02.055 Kavin humberto/Dexamethaso /2017 -0.1 strip to the henny Gomez - Left eye at M.D. 03/22 night for weeks, then discontinue Ciprofloxacin 08/13 Hx Solution 0.3% 5ml instill one Bear JMasoud HCL /2015 drop in the [place], - right eye M.D. 08/31 three times /2015 a day, start the day before surgery Ketorolac 08/13 Hx Solution 0.5% 10ml use one drop Bear Freeman Tromethamine /2015 in the right [place], - eye one M.D. 05/30 times a day, start the day before surgery Prednisolone 08/13 Hx Suspension 1% 10ml 1 drops Bear Freeman Acetate /2015 right eye [place], - one time a M.D. Vitamin D 07/23 Hx Tablets 4000Unit every day Bear Freeman /2014 Raven Sanchez M.DMasoud 09/11 Artificial 07/22 Hx Solution 0.2-0.2-1 as needed Bear Molina /2014 % Daniel - M.D. 03/07 Allopurinol /00 Hx Tablets 100mg S[place]ak, /0000 Sang - D.O. 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: [id number] EMILE PUGA Procedures Date CPT Code Description Status 05/30/2016 75939 Determination Of Refractive State Completed 05/30/2016 29460 Est Patient Intermediate Exam Completed 08/18/2015 51732 Extracapsular Cataract Extraction W/Intraocular Lens Completed 08/12/2015 91520 Ophthalmic Biometry Completed 08/12/2015 99704 Scanning Computerized Opthalmic Diagnostic Posterior Completed Seg Retina 08/12/2015 58648 Computerized Corneal Topography Completed 07/23/2015 78777 Est Patient Comprehensive Exam Completed 02/27/2014 79721 Est Patient Comprehensive Exam Completed 02/19/2013 12402 Est Patient Comprehensive Exam Completed 08/14/2012 20215 Extracapsular Cataract Extraction W/Intraocular Lens Completed 07/22/2012 06299 Ophthalmic Biometry Completed 07/22/2012 79209 Scanning Computerized Opthalmic Diagnostic Posterior Completed Seg Retina 04/03/2012 02117 Determination Of Refractive State Completed 04/03/2012 39989 Est Patient Comprehensive Exam Completed 10/12/2009 16931 Determination Of Refractive State Completed 10/12/2009 22591 Est Patient Comprehensive Exam Completed 10/08/2008 93298 New Patient Comprehensive Exam Completed Encounters Type Date Location Provider CPT E/M Dx Office Visit 03/08/2017 Bear Sanchez MD, Kavin Gomez, 31626 H02.055 8:00a ankit Bueno H01.025 E05.00 Office Visit 08/12/2015 11:45a Bear Sanchez MD, Bear Sanchez, 57194 H25.811 ankit Bueno Z96.1 E11.9 Office Visit 07/22/2012 11:15a Bear Sanchez MD, Bear Sanchez, 89808 366.14 ankit Bueno 250.50 362.01 Plan of Care 09/11/2017 - Kavin Gomez M.D.E05.00 Thyrotoxicosis w diffuse goiter w/o thyrotoxic crisisComments:CONTINUE TO USE THE ARTIFICIAL TEARS.IF YOUR SYMPTOMS WORSEN THEN CALL THE OFFICEFollow up:6 Month Follow UpH04.123 Dry eye syndrome of bilateral lacrimal glandsComments:Smoking can increase the risk of developing or worsening any eye related disease, as well as affect your overall health. If you are a smoker, we strongly recommend that you quit.If you are not a smoker, we strongly recommend that you do not start. Both of your eyes appear to be dry. Use artificial tears as directed. You can use the tears more often if you are reading a book or are on the computer,as we tend to blink less , making our eyes dry out more.[facility] offers a few items in our optical department to help alleviate dry eye symptoms.Z96.1 Presence of intraocular lensComments:The artificial lens implants in both eyes appear to be stable at this time.
--- OUTSIDE RECORDS SUMMARY | 2017-10-01 21:16 | XMS REPORT ---
:1945 External Reference #:[id number] Author Organization [facility] Address [address] [address] Phone [phone] Care Team Providers Name Role Phone Brittany Morataya DO Primary Care Physician Unavailable Payers Type Date Identification Numbers Payment Provider Subscriber Medicare Primary Effective: Policy Number: Medicare Audra Virk 2016 [id number] PayID: [id number] [address] [place] [address] Medigap Part B Policy Number: [id number] [facility] Audra Pettiton PayID: [id number] [address] [place] [address] Problems Date Description Provider Status Onset: 05/26/2013 [...] condyle Natalia Stevens M.D. Active of humerus Family History Date Family Member(s) Problem(s) Comments General Cerebrovascular Accident (CVA) General Hypertension Father due to Natural Causes () Mother due to Stroke () Mother Cerebrovascular Accident (CVA) Mother Obesity Mother Hypertension First Son due to Hepatitis, Viral () Social History Type Date Description Comments Marital Status Lives With Occupation Works at [employer] Occupation Retired Cigarette Use Former Cigarette Smoker [...] tab po Vassilios /2017 13, 7, 1 Dimoposhireen hours prior , to procedure Benadryl 09/07 Active Tablets 25mg 2tabs 2 tabs po 1 Vassilios Allergy hour prior Leelee salinas MD procedure Gabapentin 06/06 Active Capsules 300mg 30cap 1 by mouth M54.12 s every night Diego, at bedtime M.DMasoud Probiotic 03/01 Active Capsules 1000 30cap once a day Rosio Acidophilus s Myles Patterson Enalapril 08/28 Active Tablets 10mg 90tab 1 by mouth I10 Rosio Maleate s at bedtime Myles Patterson Furosemide 02/04 Active Tablets 20mg 45tab one every s other day Yesenia, alternating M.D. with eplerenone Tikosyn 10/13 Active Capsules 125mcg 180ca 1 by mouth ps twice a day Myles Patterson Calcium + D Active Tablets 60tab 2 tablet po / s daily Senna Active Capsules 8.6mg 60cap 2 cap po at Unknown /0000 s hs Vitamin B-12 Active Tablets 1000mcg 2.5 tablets Unknown /0000 po b.i.d Magnesium Active Capsules 1000mg 1 po qd / Synthroid Active Tablets 88mcg 1 po daily Unknown / Vitamin D3 Active Capsules 4000mg 30cap 1 po qd Unknown /0000 s Stress Formula Active Tablets 2 po qd Unknown / Eplerenone Active Tablets 25mg 45tab 1 tab every Rosio s every other Yesenia, day M.D. alternate with furosimde Potassium Active Tablets 99mg otc bid Nasal Rinse Active Misc Daily as needed Garlic Oil Active 2 daily Famotidine Active Tablets 40mg 1 tab PO as needed Sulindac Active Tablet 100mg 1 tab PO Unknown Am, 1 tab PO hs Cortef Active Tablets 5mg Take One Tablet By Mouth Every Morning And 1/2 Tablets By Mouth Every hs Neilmed Active daily Unknown Hydrocortisone Active Tablets 5mg Enalapril 01/31 Hx Tablets 2.5mg 90tab 1 tap PO q I47.1 Rosio Menjivar s day Raven Patterson M.D. 04/20 Atenolol 01/29 Hx Tablets 25mg 60tab 1 by mouth Sea S. s once in am DO Shukri - FACC 03/10 Enalapril 01/29 Hx Tablets 10mg 90tab 1 by mouth Rosio Menjivar s every day Raven Patterson M.D. 01/31 Enalapril 10/18 Hx Tablets 2.5mg 30tab 4 tab po qd Rosio Menjivar s Raven Patterson M.D. 12/31 Metoprolol 09/24 Hx Tablets ER 50mg 30tab 1 by mouth 427.69 Rosio Succinate 24HR s each night Raven Patterson M.D. 10/08 Allopurinol 09/18 Hx Tablets 200 1 po once a day (pt is - taking 2 03/23 100mg tabs) Aspir-Low 09/[address] 81mg 30tab 1 by mouth 427.1 Rosio s every day Raven Patterson M.D. 04/24 Eplerenone 06/24 Hx Tablets 25mg 60tab 1tab by 401.9 Rosio s mouth Yesenia, - alternating M.DMasoud 09/21 days lasix Enalapril 05/25 Hx Tablets 10mg 30tab take 2 tabs Rosio Menjivar s by mouth Yesenia, - bid. M.DMasoud 08/16 Spironolactone 05/11 Hx Tablets 25mg 90tab 2 by mouth 428.0 s every day Raven Patterson M.DMasoud 06/24 Ventolin HFA 05/26 Hx Aerosol 108(90Bas 1unit patient Rosio e) s using prn Yesenia, - mcg/Act throat M.D. 01/16 tickling Carvedilol 10/07 Hx Tablets 3.125mg 270ta two tablets Rosio bs in am and Yesenia, - two tablets M.D. 09/24 by mouth /2014 every evening Amlodipine 05/28 Hx Tablets 5mg 90tab 1 po qd Rosio Bes s Raven Patterson.Wendi 01/14 Synthroid Hx Tablets 125mcg 30tab 1 po qd Unknown / s - 05/26 Enalapril Hx Tablets 20mg 200ta 1 po bid Unknown Male / bs - 05/11 Lasix Hx Tablets 20mg [...] qd Unknown /0000 s - 06/23 Sulindac / Hx Tablets 200mg bid Unknown /0000 - 03/23 Budesonide Hx Suspension 0.25mg/2M 180un via Unknown /0000 L its nebulizer - bid as 08/13 Potassium Hx Tablets 99mg 2 po qd Unknown /0000 - 05/11 Echinacea Hx Capsules 400mg 1 cap po Unknown /0000 bid - 06/23 Vasotec Hx Tablets 20mg 90tab 1/2 tab po Rosio /0000 s qd Yesenia, - M.D. 10/18 Furosimide 00/00 Hx Tablets 20mg 60tab 1 tab every Rosio /0000 s sunday , , - sunday M.D. 02/04 and Sunday Metoprolol 00/ Hx Tablets ER 50mg 90tab 1/2 tab by Rosio Succinate ER /0000 24HR s mouth every , - day at at M.D. 05/18 bedtime Apple Cider 00 Hx 1 tsp bid Unknown Vinegar /0000 - 10/22 Cefuroxime 00 Hx Tablets 500mg 1 tablet po Sandeep, Axetil /0000 twice daily MD Verónica - x 14 days ( 12/26 To until 11/05/15) Aciphex 00 Hx 20mg 1 tablet po Unknown /0000 bid - 03/23 Immunizations CPT Code Status Date Vaccine Lot # [id number] Given 05/21/2014 Influenza Virus 3Yrs & Over Vital Signs Date Vital Result Comment 09/10/2017 Height 64 inches 5'4" Weight 1502.00 [...] Color Yellow Urine Appearance Cloudy Urine Specific Cartwright 1.017 1.010-1.030 Urine pH 5.0 5-9 Urine [...] and in selective patients <6.0%.Please refer to [place] [employer] Diabetic care guidelines for further [...] meds adjusted Copy Result to: BRITTANY MORATAYA ([id number]) 7 Because ethnic data is not always [...] <15 (or dialysis) 14 RUN DATE: 10/07/14 [facility] LAB LIVE PAGE 1 RUN TIME: [address] [place] [address] Specimen Inquiry Name: AUDRA VIRK : [address]: Sergio Carter MD Acct: [id number] Unit: [id number] AGE: 68 Location: [facility] Re10/06/14 SEX: F Status: REG REF SPEC: [id number] JORYDN: 10/06/14- SUBM DR: Sergio Carter MD REQ: [id number] RECD: 10/06/146 STATUS: SOUT _ ORDERED: LEVEL I FINAL DIAGNOSIS Defibrillator generator, removal: Foreign body (ICD generator) (Gross diagnosis). CLINICAL HISTORY No history given GROSS DESCRIPTION The specimen is received fresh labeled, ICD Generator, and consists of a 6.3 x 5.0 x 1.5 cm silver metallic medical reception. The following inscription is identified: PubNubuoso SN [id number] [id number]. Per established hospital medical staff protocol, no tissue is submitted. Gross only. Signed (signature on file) Misael Yanez MD 0928 END OF REPORT * ML=Testing performed at Main Lab DEPARTMENT OF PATHOLOGY, [address] [place] [address] Misael Yanez M.D. Director [facility] # [id number] 15 REFERENCE VALUE 10-60 (a.m. collection) Test Performed by: [facility] [place] [address] Recycling Director: Mao Lucero II, M.D., Ph.D. 16 Test Performed by: [facility] [place] [address] Recycling Director: Mao Lucero II, M.D., Ph.D. 17 Because [...] repeat UC planned. 20 RUN DATE: 08/16/14 [facility] LAB LIVE PAGE 1 RUN TIME: [address] [place] [address] Specimen Inquiry Name: MOOSEAUDRA : [address]: Rosio Patterson MD Acct: [id number] Unit: [id number] AGE: 68 Location: LAB Re08/14/14 SEX: F Status: REG REF SPEC: [id number] JORDYN: 08/14/[address] [facility] [address]: Rosio Patterson MD REQ: [id number] RECD: 08/14/14 STATUS: LANRDY GAMBINO DR: Brittany Morataya DO _ SOURCE: URINE SPDESC: ORDERED: Urine Culture QUERIES: Provider Requisition # [id number] Procedure Result Verified Site Urine Culture Final 08/16/14- 910 ML Organism 1 NORMAL SHONDA Smoaks Count >100,000 (Many) CFU/ML END OF REPORT * ML=Testing performed at Main Lab DEPARTMENT OF PATHOLOGY, [address] [place] [address] Misael Yanez M.D. Director [facility] # [id number] 21 >100 to <200 pg/mL: likely compensated congestive heart failure (CHF) 200 to 400 pg/mL: likely moderate CHF >400 pg/mL: likely moderate to severe CHF PA HEART 22 Because ethnic data is not [...] and in selective patients <6.0%.Please refer to [place] [employer] Diabetic care guidelines for further information. 35 FASTING 36 FASTING 37 Microalbuminuria in a random sample is defined as: Microalbumin/Creatinine ratio of 30-299 ug/mg. 38 Test Performed by: [facility] [address] [address] Recycling Director: Campos Christiansno III, M.D. 39 Because ethnic data is [...] Procedures Date CPT Code Description Status 09/10/2017 57536 Closed TRTMT Supracondylar Completed 07/24/2017 41445 Interrogation Implant Cardiovasc Monitor System Incl Completed Analysis Int 07/24/2017 80830 Interrogation Implant Cardiovasc Monitor System Incl Completed Analysis Int 07/24/2017 94539 Icd Eval With Inerative Adjustmt Dual Lead System Completed 07/24/2017 39113 Icd Eval With Inerative Adjustmt Dual Lead System Completed 03/29/2017 95356 Icd Check Single,Dual Or Multiple In Person W/ Incl Completed Heart Rhyth 03/01/2017 92938 Interrogation Implant Cardiovasc Monitor System Incl Completed Analysis Int 03/01/2017 62356 Icd Eval With Inerative Adjustmt Dual Lead System Completed 02/07/2017 Bone Mineral Density Test Completed 11/16/2016 55877 Icd Check Single,Dual Or Multiple In Person W/DR Incl Completed Heart Rhyth 10/31/2016 99187 Icd Eval Sing,Dual,Multi Lead Remote Recpt Transm Tech Completed Rev Tech S 10/31/2016 14296 Icd Check Remote Up To 90 Days Single,Dual,Multiple Completed Lead 08/28/2016 20158 EKG Tracing & Interpretation Completed 04/21/2016 89422 Icd Eval Sing,Dual,Multi Lead Remote Recpt Transm Tech Completed Rev Tech S 04/21/2016 92552 Icd Check Remote Up To 90 Days Single,Dual,Multiple Completed Lead 03/30/2016 49508 ECHO Transthoracic, Real-Time 2D With Doppler And Color Completed Flow 03/20/2016 30599 EKG Tracing & Interpretation Completed 02/23/2016 40822 Interrogation Implant Cardiovasc Monitor System Incl Completed Analysis Int 02/23/2016 95208 Interrogation Device Eval In Person W/DR Completed Analysis,Single,Dual,Mul 02/01/2016 70150 Icd Eval With Inerative Adjustmt Dual Lead System Completed 02/01/2016 39164 EKG Tracing & Interpretation Completed 01/30/2016 04987 Icd Check Single,Dual Or Multiple In Person W/DR Incl Completed Heart Rhyth 10/28/2015 91463 Icd Eval With Inerative Adjustmt Dual Lead System Completed 10/28/2015 78938 Interrogation Implant Cardiovasc Monitor System Incl Completed Analysis Int 10/12/2015 18152 EKG Tracing & Interpretation Completed 10/11/2015 02810 Interrogation Implant Cardiovasc Monitor System Incl Completed Analysis Int 10/11/2015 64354 Icd Check Single,Dual Or Multiple In Person W/DR Incl Completed Heart Rhyth 07/28/2015 83386 Interrogation Implant Cardiovasc Monitor System Incl Completed Analysis Int 07/28/2015 58023 Icd Check Single,Dual Or Multiple In Person W/DR Incl Completed Heart Rhyth 06/21/2015 57352 Interrogation Implant Cardiovasc Monitor System Incl Completed Analysis Int 06/21/2015 28092 Icd Eval With Inerative Adjustmt Dual Lead System Completed 04/20/2015 88437 EKG Tracing & Interpretation Completed 04/14/2015 93313 EKG Tracing & Interpretation Completed 02/17/2015 21407 Interrogation Implant Cardiovasc Monitor System Incl Completed Analysis Int 02/17/2015 68788 Icd Check Single,Dual Or Multiple In Person W/DR Incl Completed Heart Rhyth 02/10/2015 50152 EKG Tracing & Interpretation Completed 10/30/2014 60561 EKG Tracing & Interpretation Completed 10/15/2014 35321 Icd Eval With Inerative Adjustmt Dual Lead System Completed 10/09/2014 98316 EKG, Interpretation Only Completed 10/08/2014 11096 EKG, Interpretation Only Completed 10/07/2014 04572 EKG, Interpretation Only Completed 10/06/2014 57589 Ep Eval Icd At Implant Completed 10/06/2014 93636 Removal Dual Lead Pacing Cardioverter-Defibrillator Completed W/Replacmt 09/22/2014 74767 ECHO Transthoracic, Real-Time 2D With Doppler And Color Completed Flow 09/21/2014 83810 Holter Monitoring 24 HR New Completed 09/21/2014 63423 EKG Tracing & Interpretation Completed 09/18/2014 38675 Interrogation Implant Cardiovasc Monitor System Incl Completed Analysis Int 09/18/2014 47270 Icd Eval With Inerative Adjustmt Dual Lead System Completed 08/17/2014 47650 Polysomnography Sleep Staging 4+ Parameters Completed 08/05/2014 16731 Interrogation Implant Cardiovasc Monitor System Incl Completed Analysis Int 08/05/2014 06698 Icd Check Single,Dual Or Multiple In Person W/DR Incl Completed Heart Rhyth 05/20/2014 36259 Icd Check Single,Dual Or Multiple In Person W/DR Incl Completed Heart Rhyth 05/11/2014 74292 Interrogation Implant Cardiovasc Monitor System Incl Completed Analysis Int 05/11/2014 13779 Icd Eval With Inerative Adjustmt Dual Lead System Completed 03/19/2014 57772 Icd Check Single,Dual Or Multiple In Person W/DR Incl Completed Heart Rhyth 03/19/2014 88648 Interrogation Implant Cardiovasc Monitor System Incl Completed Analysis Int 12/31/2013 82231 ECHO Transthoracic, Real-Time 2D With Doppler And Color Completed Flow 12/22/2013 07477 Icd Eval With Inerative Adjustmt Dual Lead System Completed 08/18/2013 06785 Interrogation Implant Cardiovasc Monitor System Incl Completed Analysis Int 08/18/2013 60385 Icd Eval With Inerative Adjustmt Dual Lead System Completed 04/17/2013 55214 Icd Eval With Inerative Adjustmt Dual Lead System Completed 02/12/2013 81691 ECHO Transthoracic, Real-Time 2D With Doppler And Color Completed Flow 02/05/2013 55242 Stress Test Completed 01/31/2013 65876 EKG Tracing & Interpretation Completed 01/30/2013 80860 Icd Eval With Inerative Adjustmt Dual Lead System Completed 10/02/2012 36018 Interrogation Implant Cardiovasc Monitor System Incl Completed Analysis Int 10/02/2012 57899 Icd Eval With Inerative Adjustmt Dual Lead System Completed 08/12/2012 Mammogram Completed 07/24/2012 50773 Interrogation Implant Cardiovasc Monitor System Incl Completed Analysis Int 07/24/2012 37599 Icd Eval With Inerative Adjustmt Dual Lead System Completed 07/02/2007 58350 EKG, Interpretation Only Completed 07/02/2007 67758 EKG, Interpretation Only Completed Encounters Type Date Location Provider CPT E/M Dx Office Visit 08/22/2017 [facility] [place] [address]702 M54.2 3:30p Of Eduardo Mckoy MD M54.5 M47.892 M54.12 Office Visit 06/06/2017 8:30a [facility] Jason Cortez, 41859 M54.12 Of Jeanette Bueno Office Visit 03/01/2017 3:00p [facility] Rosio Patterson M.D. 46126 Z95.810 [facility] I47.1 I47.2 Office Visit 09/21/2016 11:45a [facility], Song Sharif, 84643 A41.9 Hospitalists M.DMasoud E23.0 I42.9 Office Visit 09/20/2016 11:44a [facility], Luís Delgado, 74231 A41.9 Hospitalists M.DMasoud E23.0 I42.9 Office Visit 08/28/2016 8:40a [facility] Jewels Patterson M.D. 34526 I42.9 [facility] Z95.810 I47.1 I49.3 I10 Office Visit 04/21/2016 11:20a [facility] Jewels Patterson M.D. 65870 I42.9 [facility] Z95.810 I47.1 I49.3 I35.0 Office Visit 03/20/2016 1:15p [facility] Rosio Patterson M.D. 27693 R42 R11.0 M54.5 R43.9 J34.89 Office Visit 03/10/2016 9:45a [facility] LARISA Krishna 15850 Z95.810 R53.83 R53.81 I42.9 R42 I47.1 Office Visit 02/23/2016 11:30a [facility] LARISA Krishna 15907 I47.1 Z95.810 R53.83 I10 I42.9 Office Visit 02/01/2016 9:00a [facility] Rosio Patterson M.D. 41130 I47.1 [facility] R42 I42.8 Z95.810 Office Visit 01/30/2016 12:43p [facility] [place] [address] I42.9 [facility] I47.1 I49.3 Z95.810 Office Visit 12/07/2015 3:30p [facility] Rosio Patterson M.D. 87918 I42.9 [facility] I10 Office Visit 10/28/2015 3:00p [facility] Rosio Patterson M.D. 06273 I42.9 [facility] Z95.810 J01.90 R42 Office Visit 10/19/2015 2:00p [facility] LARISA Krishna 62221 I42.8 R42 I95.9 Office Visit 10/12/2015 2:45p [facility] Rosio Patterson M.D. 74937 I42.9 [facility] I47.2 J01.90 R42 I50.42 Z95.810 I10 Office Visit 07/28/2015 3:00p [facility] LARISA Krishna 05289 I47.2 I42.9 Z95.810 I10 I49.3 Office Visit 04/30/2015 8:00a [facility] Rosio Patterson M.D. 86393 I47.2 [facility] R41.1 R53.83 I10 E23.0 G47.33 Z95.810 Office Visit 04/20/2015 2:15p [facility] Rosio Patterson M.D. 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 23123 427.1 [employer] Tu[employer] Machine Operator V45.02 782.7 786.03 794.31 Office Visit 02/10/2015 9:00a [facility] LARISA Bloom 59118 425.4 401.9 427.0 427.1 786.05 427.69 Office Visit 10/09/2014 2:17p [facility] Rosio Patterson M.D. 53837 425.4 [employer] Tu[employer] Machine Operator 428.0 427.1 Office Visit 10/08/2014 11:08a [facility] Jewels Patterson M.D. 32772 427.0 Button Tu[employer]ing Machine Operator 425.4 427.69 Office Visit 10/07/2014 11:07a [facility] Jewels Patterson M.D. 61873 427.0 Button Tu[employer]ing Machine Operator 425.4 Office Visit 09/29/2014 4:00p [facility] Jewels Patterson M.D. 24368 425.4 Button Tufting Machine Operator V45.02 780.4 427.1 Office Visit 09/24/2014 2:00p [facility] LARISA Krishna 29018 425.4 780.4 401.9 V45.02 427.69 Office Visit 09/21/2014 8:15a [facility] Arianna Nuñ[place] [address] 327.23 Services Of Button Tufting Machine Operator 473.8 427.1 Office Visit 09/18/2014 1:30p [facility] LARISA Bloom 98865 425.4 401.9 780.79 427.1 V45.02 427.69 Office Visit 08/17/2014 8:30a [facility] LARISA Bloom 52234 425.4 401.9 786.05 Office Visit 08/14/2014 8:00a [facility] Rosio Patterson M.D. 86823 787.02 Button Tu[employer] Machine Operator 443.0 425.4 427.1 599.89 Office Visit 07/21/2014 8:45a [facility] [place] Arianna Nuñ[place] [address] 780.59 Services Of [facility] 780.54 Office Visit 07/13/2014 2:00p [facility] LARISA Krishna 64293 425.4 428.0 401.9 Office Visit 06/24/2014 11:00a [facility] LARISA Krishna 00564 425.4 401.9 427.1 786.05 Office Visit 06/17/2014 8:00a [facility] Rosio Patterson M.D. 28619 401.9 [facility] 425.4 428.0 784.0 780.50 Office Visit 05/25/2014 3:45p [facility] [place] [address] 425.9 Office Visit 05/20/2014 9:30a [facility] LARISA Krishna 50294 425.9 427.1 V45.02 Office Visit 05/11/2014 11:45a [facility] Rosio Patterson M.D. 95917 V45.02 [facility] 425.9 786.05 428.0 Office Visit 01/16/2014 7:45a [facility] Rosio Patterson M.D. 70694 425.9 Button [employer]ing Machine Operator 427.1 427.0 V45.02 Office Visit 05/26/2013 8:45a [facility] Rosio Patterson M.D. 96808 425.4 Button Tu[employer]ing Machine Operator 427.1 V45.02 780.50 Office Visit 03/09[facility]2013 [facility] [address] 786.50 [facility] 425.8 Office Visit 01/31/2013 3:15p [facility] Jewels Patterson M.D. 54055 V72.81 [facility] 427.1 425.4 Office Visit 08/22/2012 3:15p [facility] [place] [address] 780.4 Office Visit 08/08/2012 9:45a [facility] Rosio Patterson M.D. 49456 425.4 786.09 428.0 427.1 Plan of Care Future Appointment(s):10/03/2017 9:15 richie - Natalia Stevens M.D. at [facility]09/18/2017 9:00 am - Mark Mckoy MD at [facility]09/10/2017 - Natalia Stevens M.D.M25.521 Pain in right gubcqA52.01xA Contusion of right elbow, initial feohonbvqC87.464A Nondisp fx of medial condyle of right humerus, initFollow up:Follow up: 3 weeks
[2017-10-01 23:31] LABS: ABS Basophils 0 10^3/ul (0-0.2); ABS Eosinophils 0.3 10^3/ul (0-0.6); ABS Lymphocytes 1.9 10^3/ul (1.0-4.8); ABS Monocytes 0.9 10^3/ul (0-0.8); ABS Nucleated RBC 0 10^3/ul; Hematocrit 40 % (35-47); Hemoglobin 13.9 g/dl (12.0-16.0); Mean Corpuscular HGB Conc 35 g/dl (31-36); Mean Corpuscular Hemoglobin 32 pg (27-31); Mean Corpuscular Volume 93 fL (80-97); Mean Platelet Volume 8 um3 (7.4-10.4); Nucleated Red Blood Cells % 0; Platelet Count 212 10^3/ul (150-450); Red Blood Count 4.36 10^6/ul (4.0-5.4); Red Cell Distribution Width 13 % (10.5-15); White Blood Count 9.1 10^3/ul (3.5-10.8)
[2017-10-01 23:45] LABS: EGFR Non-African American 58.9 (>60)
[2017-10-01 23:46] LABS: INR 0.95 (0.77-1.02)
[2017-10-02 00:20] LABS: Urine Appearance Clear; Urine Blood Negative (Negative); Urine Color Straw; Urine Ketones Negative (Negative); Urine Protein Negative (Negative); Urine Specific Gravity 1.002 (1.010-1.030); Urine Urobilinogen Negative (Negative)
[2017-10-02] MEDS ORDERED: Acetaminophen TAB* 325 MG PO ONE (00:44)
--- NOTE | 2017-10-02 00:50 | ED ---
Pop Horn Tiffany, scribed for Myrna Contreras MD on 10/01/17 at 2227 . Hypertension - HPI Summary HPI Summary: The patient is a 71 y/o F c/o high blood pressure since 18:00 today. Symptoms aggravated by nothing. Symptoms alleviated by nothing. Reports fever. Denies shortness of breath. Patients hydrocortisone dosages recently increased from 10mg during day and 2.5mg at night to 20mg during day and 2.5mg at night. Patient took 20mg today. Additionally has been feeling sick since three days ago. Reports sore throat and runny nose. Took one dose Tamiflu. Tested for flu today but awaiting results from primary care provider. - History of Current Complaint Chief Complaint: EDHypertension Stated Complaint: HIGH BLOOD PRESSURE Time Seen by Provider: 10/01/17 22:10 Hx Obtained From: Patient Onset/Duration: Started Hours Ago - Since 18:00 today, Still Present Aggravating Factor(s): Nothing Alleviating Factor(s): Nothing Associated Signs & Symptoms: Negative - SOB, Other: - fever, sore throat, runny nose - Allergies/Home Medications Allergies/Adverse Reactions: Allergies Allergy/AdvReac Type Severity Reaction Status Date / Time amoxicillin Allergy Rash Verified 09/07/17 13:01 indomethacin [From Indocin] Allergy Dizziness Verified 10/01/17 21:03 Iodinated Contrast- Oral and Allergy Unknown Verified 10/01/17 21:03 IV Dye Reaction Details monosodium glutamate Allergy Unknown Verified 10/01/17 21:03 Reaction Details moxifloxacin [From Avelox] Allergy Unknown Verified 10/01/17 21:03 Reaction Details Sulfa (Sulfonamide Allergy Unknown Verified 10/01/17 21:03 Antibiotics) Reaction Details BEE STINGS Allergy Severe SWELLS Uncoded 09/07/17 13:01 SURGICAL TAPE Allergy Intermediate ORNELAS AND Uncoded 09/07/17 13:01 SKIN PEELS PMH/Surg Hx/FS Hx/Imm Hx Previously Healthy: No Endocrine/Hematology History: Reports: Hx Diabetes - WELL CONTROLLED, Hx Thyroid Disease, Other Endocrine/Hematological Disorders - Adrenal gland failure Cardiovascular History: Reports: Hx Auto Implanted Cardiovert Defib, Hx Congestive Heart Failure - 2000, Hx Coronary Artery Disease, Hx Hypertension - WELL CONTROLLED, Hx Pacemaker/ICD - 2000, Other Cardiovascular Problems/ Disorders - CARDIOMYOPATHY EF 45-50% Denies: Hx Peripheral Vascular Disease Respiratory History: Reports: Hx Chronic Bronchitis, Hx Pneumonia, Hx Sleep Apnea - NO CPAP OR BIPAP GI History: Reports: Hx Gastroesophageal Reflux Disease - WELL CONTROLLED, Hx Hiatal Hernia - HX OF-SURGERY, Other GI Disorders - HX GRAVE'S AND TESSA'S DISEASE History: Reports: Hx Kidney Stones - HX OF Musculoskeletal History: Reports: Hx Bursitis, Hx Osteoporosis, Other Musculoskeletal History - sinal curvature d/t Cushings, pain in hips d/t osteoporosis Denies: Hx Arthritis, Hx Rheumatoid Arthritis Sensory History: Reports: Hx Cataracts - REMOVED, Hx Contacts or Glasses, Hx Hearing Aid - bilat, Hx Hearing Problem Opthamlomology History: Reports: Hx Cataracts - REMOVED, Hx Contacts or Glasses Neurological History: Denies: Hx Seizures, Hx Transient Ischemic Attacks (TIA) - Cancer History Hx Chemotherapy: No Hx Radiation Therapy: No - Surgical History Surgery Procedure, Year, and Place: 1977 HY[place]OM[place], [facility] [place]. 1979 [place], [facility] [place]. 1987 & 1988 TRANSSPHENOIDAL RESECTION OF THE PITUITARY, [facility] [place]. [id number] FESS [place]YR. 1997,2002,2006 KIDNEY STONE REMOVAL, [facility] AND [facility] [place]. DEF. REPLACED X3. 1999, 2006 HEART CATH [facility] [place]. 2000 ICD IMPLANT, [facility]. 2006, 10/18 ICD IMPLANT REPLACEMENT, [facility]. 2003, 2004 LEFT EYE LID RETRACTION, [place]. 2004 ABDOMINAL HERNIA REPAIR AND CELLULITIS ABSCESS REMOVAL [facility] [place] 2008 THYROIDECTOMY AND PARTIAL PARATHYROIDECTOMY, [facility] [place]. SINUS SURGERY [place]. 2010 RIGHT ROTATOR CUFF SURGERY, [facility] [place]. BI-LAT CATARACT [facility] [place] Hx Anesthesia Reactions: No Infectious Disease History: No Infectious Disease History: Denies: Traveled Outside the [place] in Last 30 Days - Family History Family History: No FHx of osteoporosis, breast cancer, malignant hyperthermia, or anesthesia reaction. - Social History Alcohol Use: Occasionally Alcohol Amount: 2-3/WEEK Hx Substance Use: No Substance Use Type: Reports: None Hx Tobacco Use: Yes Smoking Status (MU): Former Smoker Type: Cigarettes Have You Smoked in the Last Year: No Review of Systems Positive: Fever, Other - High blood pressure Positive: Sore Throat, Other - Runny nose Negative: Shortness Of Breath All Other Systems Reviewed And Are Negative: Yes Physical Exam - Summary Physical Exam Summary: VITAL SIGNS: Reviewed. GENERAL: Patient is a well-developed and nourished female who is lying comfortable in the stretcher. Patient is not in any acute respiratory distress. HEAD AND FACE: No signs of trauma. No ecchymosis, hematomas or skull depressions. No sinus tenderness. EYES: PERRLA, EOMI x 2, No injected conjunctiva, no nystagmus. EARS: Hearing grossly intact. Ear canals and tympanic membranes are within normal limits. MOUTH: Oropharynx within normal limits. NECK: Supple, trachea is midline, no adenopathy, no JVD, no carotid bruit, no c- spine tenderness, neck with full ROM. CHEST: Symmetric, no tenderness at palpation LUNGS: Clear to auscultation bilaterally. No wheezing or crackles. CVS: Regular rate and rhythm, S1 and S2 present, no murmurs or gallops appreciated. ABDOMEN: Soft, non-tender. No signs of distention. No rebound no guarding, and no masses palpated. Bowel sounds are normal. EXTREMITIES: FROM in all major joints, no edema, no cyanosis or clubbing. NEURO: Alert and oriented x 3. No acute neurological deficits. Speech is normal and follows commands. SKIN: Dry and warm Triage Information Reviewed: Yes Vital Signs On Initial Exam: Initial Vitals Temp Pulse Resp BP Pulse Ox 97.1 F 119 20 170/87 96 10/01/17 20:55 10/01/17 20:55 10/01/17 20:55 10/01/17 20:55 10/01/17 20:55 Vital Signs Reviewed: Yes Diagnostics - Vital Signs Vital Signs Temp Pulse Resp BP Pulse Ox 10/01/17 22:09 99 97 10/01/17 22:08 175/95 10/01/17 21:43 97.9 F 100 20 176/93 97 10/01/17 20:55 97.1 F 119 20 170/87 96 - Laboratory Result Diagrams: 10/01/17 23:10 10/01/17 23:10 Lab Statement: Any lab studies that have been ordered have been reviewed, and results considered in the medical decision making process. - Radiology CXR Xray Interpretation: No Acute Changes - No acute process Radiology Interpretation Completed By: ED Physician Re-Evaluation - Re-Evaluation First Eval Re-Evaluation Time: 00:42 Change: Improved Hypertension Course/Dx - Course Assessment/Plan: The patient is a 71 y/o F c/o high blood pressure since 18:00 today. Reports fever. Denies shortness of breath. Patients hydrocortisone dosages recently increased from 10mg during day and 2.5mg at night to 20mg during day and 2.5mg at night. Patient took 20mg today. Additionally has been feeling sick since three days ago. Reports sore throat and runny nose. Took one dose Tamiflu. Tested for flu today but awaiting results from primary care provider. Bloodwork and UA done. Negative influenza A and B. Pt will be D/C to home with Dx of flu-like illness. She understands and agrees. Allergies and elevtaed BP noted. - Diagnoses Provider Diagnoses: flu-like illness Discharge - Discharge Plan Condition: Stable Disposition: HOME Patient Education Materials: Viral Syndrome (ED) Referrals: Sang Kebede DO [Primary Care Provider] - 3 Days Antoine Cobos MD [Medical Doctor] - 3 Days Additional Instructions: RETURN TO THE EMERGENCY DEPARTMENT FOR ANY RETURNING OR WORSENING SYMPTOMS. Follow-up with your primary care physician and an clinical rn liaison. The documentation as recorded by the Pop owens Tiffany accurately reflects the service I personally performed and the decisions made by me, Myrna Contreras MD.
[2017-10-02 01:10] VITALS: BP 156/89
--- NOTE | 2017-10-02 07:33 | RAD ---
INDICATION: Fever COMPARISON: September 20, 2016 TECHNIQUE: An AP portable view obtained at 2236 is submitted. FINDINGS: Bones/Soft Tissues: There are no acute bony findings. Is left-sided cardiac pacemaker/defibrillator Cardiomediastinal: The cardiomediastinal silhouette is unchanged. There is mild uncoiling of the thoracic aorta with prominence of the descending thoracic aorta, unchanged. Lungs: There are no infiltrates. Pleura: There are no pleural effusions. Other: None IMPRESSION: NO ACTIVE DISEASE.
== END 2017-10-02 01:13 | disposition home or self-care (01) ==
LOC: ED 20:45
DX: J11.1 Influenza due to unidentified influenza virus with other respiratory manifestations (principal); E11.9 Type 2 diabetes mellitus without complications; E07.9 Disorder of thyroid, unspecified; E05.00 Thyrotoxicosis with diffuse goiter without thyrotoxic crisis or storm; E24.9 Cushing's syndrome, unspecified; E27.9 Disorder of adrenal gland, unspecified; I25.10 Atherosclerotic heart disease of native coronary artery without angina pectoris; I11.0 Hypertensive heart disease with heart failure; I50.9 Heart failure, unspecified; K21.9 Gastro-esophageal reflux disease without esophagitis; K44.9 Diaphragmatic hernia without obstruction or gangrene; Z95.810 Presence of automatic (implantable) cardiac defibrillator; Z88.1 Allergy status to other antibiotic agents; Z91.030 Bee allergy status; Z91.041 Radiographic dye allergy status; Z88.2 Allergy status to sulfonamides; Z88.8 Allergy status to other drugs, medicaments and biological substances; Z91.048 Other nonmedicinal substance allergy status; Z87.891 Personal history of nicotine dependence
CPT/HCPCS: 36415; 71045; 80053; 81003; 83605; 85025; 85610; 85730; 86140; 87040; 87502; 99283; A9270-GY

== ENCOUNTER 2019-03-03 11:53 | Emergency (ER) | payer MEDICARE, BC ==
--- NOTE | 2019-03-03 12:10 | ED ---
Neurological HPI - HPI Summary HPI Summary: This pt is a 73 y/o female presenting to [facility] c/o dizziness and an episode of left arm numbness today. Pt reports yesterday she tried a new bed and pillow and suddenly her neck felt strange and had "stuff" running from her nose. Upon getting up she began to feel very dizzy. Today pt had walked into her house after getting new boxes and felt dizzy. Additionally states her neck was sore, had generalized weakness, and numbness on left upper extremity. Pt describes numbness from her left shoulder down to her left hand that lasted for a few seconds, and notes she was still able to move her arm. Pt reports she has been under a lot of stress recently and is in the middle of packing her house to move. She presents today with elevated blood pressure. Pt was hospitalized 2 weeks ago just outside [place] at [facility] for similar symptoms (difficulty grasping on both sides and elevated BP) . She had a cat scan that was negative for thrombosis. She did not have contrast because she's allergic to it. Pt did not have an MRI because she has a defibrillator. Pt follows up with Dr. Mckoy for degenerative disease of C-spine. Hx of pituitary tumors s/p resection surgery, adrenal failure. Denies taking any anticoagulants. - History of Current Complaint Chief Complaint: EDDizziness Stated Complaint: HIGH BP/DIZZY PER PT FRIEND Hx Obtained From: Patient Onset/Duration: Sudden Onset, Still Present Timing: Sudden Onset Current Severity: Mild Neurological Deficit Location: LUE Pain Intensity: 0 Pain Scale Used: 0-10 Numeric Character: Dizzy, Numbness/Tingling - numbness in LUE Aggravating: Change in Head Position Alleviating: Rest Associated Signs and Symptoms: Positive: Weakness, Dizziness, Numbness - LUE. Negative: Loss of Consciousness, Fever - Additional Pertinent History Primary Care Physician: [id number] - Allergy/Home Medications Allergies/Adverse Reactions: Allergies Allergy/AdvReac Type Severity Reaction Status Date / Time amoxicillin Allergy Rash Verified 09/07/17 13:01 indomethacin [From Indocin] Allergy Dizziness Verified 10/01/17 21:03 Iodinated Contrast- Oral and Allergy Unknown Verified 10/01/17 21:03 IV Dye Reaction Details monosodium glutamate Allergy Unknown Verified 10/01/17 21:03 Reaction Details moxifloxacin [From Avelox] Allergy Unknown Verified 10/01/17 21:03 Reaction Details Sulfa (Sulfonamide Allergy Unknown Verified 10/01/17 21:03 Antibiotics) Reaction Details BEE STINGS Allergy Severe SWELLS Uncoded 09/07/17 13:01 SURGICAL TAPE Allergy Intermediate ORNELAS AND Uncoded 09/07/17 13:01 SKIN PEELS Home Medications: Home Medications Acetaminophen TAB* [Tylenol TAB*] 650 mg PO Q4H PRN 03/03/19 [History Confirmed 03/03/19] Arnica [Arnica Tincture] 20 % TOPICAL BID 03/03/19 [History Confirmed 03/03/19] Calcium Carbonate/Vitamin D3 [Calcium/Vitamin D] 2 cap PO DAILY 03/03/19 [ History Confirmed 03/03/19] Cholecalciferol TAB* [Vitamin D TAB*] 4,000 units PO DAILY 03/03/19 [History Confirmed 03/03/19] Cyanocobalamin TAB* [Vitamin B12 TAB*] 1,000 mcg PO MOWEFR 03/03/19 [History Confirmed 03/03/19] Dofetilide CAP* [Tikosyn CAP*] 125 mcg PO BID 03/03/19 [History Confirmed ] Enalapril TAB* [Vasotec TAB*] 10 mg PO DAILY 03/03/19 [History Confirmed ] Epleronone (NF) [Inspra (NF)] 25 mg PO EVERY OTHER DAY 03/03/19 [History Confirmed 03/03/19] Famotidine TAB* [Pepcid 20 MG TAB*] 20 mg PO BID 03/03/19 [History Confirmed ] Furosemide TAB* [Lasix TAB*] 20 mg PO EVERY OTHER DAY 03/03/19 [History Confirmed 03/03/19] Gabapentin CAP(*) [Neurontin 300 CAP(*)] 300 mg PO BEDTIME 03/03/19 [History Confirmed 03/03/19] Garlic [Garlic Oil] 2,000 mg PO DAILY 03/03/19 [History Confirmed 03/03/19] Hydrocortisone TAB* [Cortef*] 2.5 mg PO QPM 03/03/19 [History Confirmed 03/03/19 ] Hydrocortisone TAB* [Cortef*] 10 mg PO QAM 03/03/19 [History Confirmed 03/03/19] L.acidoph,Paracasei, B.lactis [Probiotic] 1 cap PO DAILY 03/03/19 [History Confirmed 03/03/19] Levothyroxine TAB* [Synthroid TAB*] 88 mcg PO DAILY 03/03/19 [History Confirmed 03/03/19] Magnesium Oxide [Magnesium] 500 mg PO DAILY 03/03/19 [History Confirmed 03/03/19 ] Jorge-Med 1 - 2 spray BOTH NARES DAILY 03/03/19 [History Confirmed 03/03/19] Potassium 198 mg PO DAILY 03/03/19 [History Confirmed 03/03/19] Senna TAB* [Senokot TAB*] 2 tab PO DAILY 03/03/19 [History Confirmed 03/03/19] Sulindac 150 mg PO BID 03/03/19 [History Confirmed 03/03/19] Vitamin B Complex TAB* [B Complex-50*] 2 tab PO DAILY 03/03/19 [History Confirmed 03/03/19] PMH/Surg Hx/FS Hx/Imm Hx Endocrine/Hematology History: Reports: Hx Diabetes - WELL CONTROLLED, Hx Thyroid Disease, Other Endocrine/Hematological Disorders - Adrenal gland failure Cardiovascular History: Reports: Hx Auto Implanted Cardiovert Defib, Hx Congestive Heart Failure - 2000, Hx Coronary Artery Disease, Hx Hypertension - WELL CONTROLLED, Hx Pacemaker/ICD - 2000, Other Cardiovascular Problems/ Disorders - CARDIOMYOPATHY EF 45-50% Denies: Hx Peripheral Vascular Disease Respiratory History: Reports: Hx Chronic Bronchitis, Hx Pneumonia, Hx Sleep Apnea - NO CPAP OR BIPAP GI History: Reports: Hx Gastroesophageal Reflux Disease - WELL CONTROLLED, Hx Hiatal Hernia - HX OF-SURGERY, Other GI Disorders - HX GRAVE'S AND TESSA'S DISEASE History: Reports: Hx Kidney Stones - HX OF Musculoskeletal History: Reports: Hx Bursitis, Hx Osteoporosis, Other Musculoskeletal History - sinal curvature d/t Cushings, pain in hips d/t osteoporosis Denies: Hx Arthritis, Hx Rheumatoid Arthritis Sensory History: Reports: Hx Cataracts - REMOVED, Hx Contacts or Glasses, Hx Hearing Aid - bilat, Hx Hearing Problem Opthamlomology History: Reports: Hx Cataracts - REMOVED, Hx Contacts or Glasses Neurological History: Denies: Hx Seizures, Hx Transient Ischemic Attacks (TIA) - Cancer History Hx Chemotherapy: No Hx Radiation Therapy: No - Surgical History Surgical History: Yes Surgery Procedure, Year, and Place: 1977 HYSTERECTOMY, [facility] [place]. 1979 OOPHORECTOMY, [facility] [place] 1987 & 1988 TRANSSPHENOIDAL RESECTION OF THE PITUITARY, [facility] [place]. [id number] FESS SYR. 1997,2002,2006 KIDNEY STONE REMOVAL, [facility] AND [facility] [place]. DEF. REPLACED X3. 1999, 2006 HEART CATH [facility] AND [facility] [place]. 2000 ICD IMPLANT, [facility]. 2006, 10/18 ICD IMPLANT REPLACEMENT, [facility]. 2003, 2004 LEFT EYE LID RETRACTION, [place]. 2004 ABDOMINAL HERNIA REPAIR AND CELLULITIS ABSCESS REMOVAL [facility] [place]. 2008 THYROIDECTOMY AND PARTIAL PARATHYROIDECTOMY, [facility] [place]. SINUS SURGERY [place]. 2010 RIGHT ROTATOR CUFF SURGERY, [facility] [place]. BI-LAT CATARACT [facility] [place] Hx Anesthesia Reactions: No - Family History Family History: No FHx of osteoporosis, breast cancer, malignant hyperthermia, or anesthesia reaction. - Social History Alcohol Use: Occasionally Alcohol Amount: 2-3/WEEK Hx Substance Use: No Substance Use Type: Reports: None Hx Tobacco Use: Yes Smoking Status (MU): Former Smoker Type: Cigarettes Have You Smoked in the Last Year: No Review of Systems Negative: Fever, Chills Musculoskeletal: Other - POSITIVE: sore neck Neurological: Other - POSITIVE: dizziness Positive: Weakness, Numbness - in LUE All Other Systems Reviewed And Are Negative: Yes Physical Exam - Summary Physical Exam Summary: Appearance: Well appearing, no pain distress Skin: warm, dry, reflects adequate perfusion Head/face: normal Eyes: EOMI, MICHAEL ENT: normal Neck: supple, non-tender Respiratory: CTA, breath sounds present Cardiovascular: RRR, pulses symmetrical Abdomen: non-tender, soft Musculoskeletal: normal, strength/ROM intact Neuro: normal, sensory motor intact, A&Ox3 Triage Information Reviewed: Yes Vital Signs On Initial Exam: Initial Vitals Temp Pulse Resp BP Pulse Ox 98.6 F 88 16 181/126 97 03/03/19 11:54 03/03/19 11:54 03/03/19 11:54 03/03/19 11:54 03/03/19 11:54 Vital Signs Reviewed: Yes - Dante Coma Scale Best Eye Response: 4 - Spontaneous Best Motor Response: 6 - Obeys Commands Best Verbal Response: 5 - Oriented Coma Scale Total: 15 Diagnostics - Vital Signs Vital Signs Temp Pulse Resp BP Pulse Ox 03/03/19 11:54 98.6 F 88 16 181/126 97 - Laboratory Result Diagrams: 03/03/19 12:24 03/03/19 12:24 Lab Statement: Any lab studies that have been ordered have been reviewed, and results considered in the medical decision making process. - Radiology Chest XR Radiology Interpretation Completed By: Radiologist Summary of Radiographic Findings: IMPRESSION: No active cardiopulmonary disease. Dr. Jeffery has reviewed this report. - CT Brain CT CT Interpretation Completed By: Radiologist Summary of CT Findings: IMPRESSION: No acute intracranial pathology. Dr. Jeffery has reviewed this report. Head CTA CT Interpretation Completed By: Radiologist Summary of CT Findings: IMPRESSION: No acute abnormality. Dr. Jeffery has reviewed this report. Neck CTA CT Interpretation Completed By: Radiologist Summary of CT Findings: IMPRESSION: 1. Right: there is calcified plaque in the proximal right internal carotid artery with approximately 19% stenosis. The vertebral artery is patient. 2. Left: Approximately 38% stenosis of the proximal left internal carotid artery with calcified plaque. The vertebral artery is patent. Dr. Jeffery has reviewed this report. - EKG 12:16 Cardiac Rate: NL - at 79 bpm EKG Rhythm: Sinus Rhythm Summary of EKG Findings: No acute changes. Re-Evaluation - Re-Evaluation First Eval Re-Evaluation Time: 20:27 Comment: Reviewed CTA results with pt. She will be discharged home with follow up from neurology. Course/Dx - Course Assessment/Plan: Pt is a 73 y/o female presenting to [facility] c/o dizziness and an episode of left arm numbness today. Pt describes numbness from her left shoulder down to her left hand that lasted for a few seconds, and notes she was still able to move her arm. Hospitalized for similar symptoms 2 weeks ago. No anticoagulants. Brain CT shows no acute intracranial pathology. Discussed with Dr. Lau, neurologist, who came and assessed the pt in the ED. He recommended a CTA and if normal pt can be discharged home. CTA head/neck shows 1. Right: there is calcified plaque in the proximal right internal carotid artery with approximately 19% stenosis. The vertebral artery is patient. 2. Left : Approximately 38% stenosis of the proximal left internal carotid artery with calcified plaque. The vertebral artery is patent. Pt will be discharged home with follow up from neurology. - Diagnoses Provider Diagnoses: Dizziness - Physician Notifications Discussed Care Of Patient With: Delio Lau Time Discussed With Above Provider: 13:14 Discharge - Sign-Out/Discharge Documenting (check all that apply): Patient Departure - Discharge home Patient Received Moderate/Deep Sedation with Procedure: No - Discharge Plan Condition: Stable Disposition: HOME Patient Education Materials: Dizziness (ED) Referrals: Sang Kebede DO [Primary Care Provider] - Delio Lau MD [Medical Doctor] - Additional Instructions: Please follow up with Dr. Lau, neurologist. RETURN TO THE ED FOR ANY NEW OR WORSENING SYMPTOMS. - Attestation Statements Document Initiated by Scribe: Yes Documenting Scribe: Lizeth Trammell Provider For Whom Scribe is Documenting (Include Credential): Fabian Jeffery MD Scribe Attestation: ILizeth, scribed for Fabian Jeffery MD on 03/03/19 at 2024. Status of Scribe Document: Ready
[2019-03-03 12:31] LABS: Hematocrit 38 % (35-47); Hemoglobin 13.3 g/dL (12.0-16.0); Mean Corpuscular HGB Conc 35 g/dL (31-36); Mean Corpuscular Hemoglobin 32 pg (27-31); Mean Corpuscular Volume 91 fL (80-97); Mean Platelet Volume 7.6 fL (7.4-10.4); Platelet Count 184 10^3/uL (150-450); Red Cell Distribution Width 13 % (10-15); White Blood Count 5.9 10^3/uL (3.5-10.8)
[2019-03-03 12:36] LABS: ABS Eosinophils 0.2 10^3/ul (0-0.6); ABS Lymphocytes 2.4 10^3/ul (1.0-4.8); ABS Monocytes 0.6 10^3/ul (0-0.8); ABS Neutrophils 2.7 10^3/ul (1.5-7.7); Eosinophil % 3.9 %; Lymphocyte % 40.3 %; Nucleated Red Blood Cells % 0.1
[2019-03-03 12:42] LABS: Activated Partial Thrombo Time 36.6 seconds (26.0-38.0); INR 0.99 (0.82-1.09)
[2019-03-03 12:55] LABS: Albumin/Globulin Ratio 1.3 (1-3); BUN/Creatinine Ratio 14.6 (8-20); Calcium 9.4 mg/dL (8.6-10.3); EGFR African American 75.4 (>60); EGFR Non-African American 62.3 (>60); Globulin 3.1 g/dL (2-4); Potassium 3.7 mmol/L (3.5-5.0); Total Bilirubin 0.8 mg/dL (0.2-1.0); Total Protein 7.1 g/dL (6.4-8.9)
--- OUTSIDE RECORDS SUMMARY | 2019-03-03 13:08 | XMS REPORT | Continuity of Care Document ---
:1945 External Reference #:[id number] Author Name Lori Cortes Care Team Providers Name Role Phone Brittany Morataya DO Primary Care Physician Unavailable Payers Date Identification Numbers Payment Provider Subscriber Policy Number: [id number] Medicare Audra Virk PayID: [id number] [address] [place] [address] Effective: 2016 Policy Number: [id number] Medicare Audra Virk Expires: 2018 PayID: [id number] [address] [place] [address] Policy Number: [id number] [facility] Audra Virk PayID: [id number] [address] [place] [address] Problems Active Problems Provider Date Primary cardiomyopathy Rosio Patterson M.D. Onset: 05/26/2013 Paroxysmal ventricular tachycardia Rosio Patterson M.D. Onset: 05/26/2013 Automatic implantable cardiac Rosio Patterson M.D. Onset: 05/26/2013 defibrillator in situ Disturbance in sleep behavior Rosio Patterson M.D. Onset: 05/26/2013 Essential hypertension Rosio Patterson M.D. Onset: 06/17/2014 Congestive heart failure Rosio Patterson M.D. Onset: 06/17/2014 Headache Rosio Patterson M.D. Onset: 06/17/2014 Dyssomnia Arianna Nuñez MD Onset: 07/21/2014 Hypersomnia Arianna Nuñez MD Onset: 07/21/2014 Obstructive sleep apnea syndrome Arianna Nuñez MD Onset: 09/21/2014 Dizziness and giddiness Rosio Patterson M.D. Onset: 09/29/2014 Apnea Rosio Patterson M.D. Onset: 04/14/2015 Spontaneous ecchymosis Rosio Patterson M.D. Onset: 04/20/2015 Malaise and fatigue Rosio Patterson M.D. Onset: 04/20/2015 Amnesia Rosio Patterson M.D. Onset: 04/20/2015 Cardiomyopathy, unspecified Ica Pacer Schedule Onset: 06/21/2015 Chronic combined systolic and diastolic Rosio Patterson M.D. Onset: 10/12/2015 heart failure Paroxysmal supraventricular tachycardia Rosio Patterson M.D. Onset: 02/01/2016 Premature beats Rosio Patterson M.D. Onset: 04/21/2016 Aortic valve disorder Rosio Patterson M.D. Onset: 04/21/2016 Brachial neuritis Jason Cortez M.D. Onset: 06/06/2017 Neck pain Mark Mckoy MD Onset: 08/22/2017 Low back pain Mark Mckoy MD Onset: 08/22/2017 Cervical spondylosis Mark Mckoy MD Onset: 08/22/2017 Closed fracture of medial condyle of Natalia Stevens M.D. Onset: 09/10/2017 humerus Cervical disc disorder Mark Mckoy MD Onset: 09/18/2017 Family History Date Family Member(s) Observation Comments General Cerebrovascular Accident (CVA) General Hypertension Father due to Natural Causes () Mother due to Stroke () Mother Cerebrovascular Accident (CVA) Mother Obesity Mother Hypertension First Son due to Hepatitis, Viral () Social History Type Date Description Comments Sex Unknown Marital Status Lives With Occupation Works at [employer] Occupation Retired Tobacco Use Start: Unknown End: Former Cigarette Smoker Unknown Smoking Status Reviewed: 02/14/19 Former Cigarette Smoker ETOH Use Currently consumes couple drinks 1-3 alcohol times per week Recreational Drug Use Denies Drug Use Tobacco Use Start: Unknown End: Patient is a former smoked for 15yrs on Unknown smoker and off starting in high school. 1-1 1/2 PPD Exercise Type/Frequency Exercises regularly 3 days a week 45 mins Allergies, Adverse Reactions, Alerts Active Allergies Reaction Severity Comments Date Amoxicillin 08/08/2012 Indocin 08/08/2012 Proventil 08/08/2012 Sulfa 08/08/2012 Tape surgical tape 08/08/2012 MSG 08/08/2012 Bee Sting 08/08/2012 Contrast Dye 05/22/2013 Avelox dizziness, muscle pain in 05/26/2013 arm Cefuroxime Contact dermatitis 12/27/2015 Beta Adrenergic Blockers malaise, jt aches, Moderate 03/10/2016 depression Hydralazine extreme low bp 02/14/2019 Medications Active Medications SIG Qnty Indications Ordering Date Provider Prednisone 1 tab po 13, 7, 1 3tabs Vassilios 09/07/2017 50mg hours prior to MD Leelee Tablets procedure as needed Benadryl Allergy 2 tabs po 1 hour 2tabs Vassilios 09/07/2017 25mg prior to procedure MD Leelee Tablets ( PT does not take) Gabapentin 1 by mouth every 30caps M54.12 Jason Cortez, 06/06/2017 300mg night at bedtime M.D. Capsules Probiotic once a day 30caps Rosio Patterson, 03/01/2017 Acidophilus M.D. 1000 Capsules Enalapril Maleate 1 by mouth at 90tabs I10 Rosio Patterson, 08/28/2016 bedtime M.D. 10mg Tablets Furosemide one every other 45tabs Kailyn Lyn, 02/04/2015 20mg day alternating N.P. Tablets with eplerenone Tikosyn 1 by mouth twice a 180caps Rosio Patterson, 10/13/2014 125mcg day M.D. Capsules Doxycycline Hyclate one tablet twice Unknown daily 100mg Capsules Griseofulvin Take One Tablet By Unknown Microsize Mouth Twice A Day 500mg With Meals For Tablets Fungal Oral And Nail Desease Famotidine 1 tab by mouth Unknown 20mg twice a day if Tablets needed Sulindac 1 tablet po twice Brittany Morataya 150mg daily DO Alec Tablets Neilmed daily Unknown Cortef Take Two Tablet By Unknown 5mg Tablets Mouth Every Morning And 1 Tablets By Mouth Every hs mAY Take 1/2 Tab prn If Needed X 2 Garlic Oil 2 daily Unknown Nasal Rinse Daily as needed Unknown Misc Potassium otc bid Unknown 99mg Tablets Eplerenone 1 tab every every 45tabs Kailyn Lyn, 25mg other day N.P. Tablets alternate with furosemide Stress Formula 2 po qd Unknown Tablets Vitamin D3 1 po qd 30caps Unknown 1000Unit Capsules Synthroid 1 po daily Unknown 88mcg Tablets Magnesium 1 po qd Unknown 1000mg Capsules Vitamin B-12 1 tablet every Unknown 1000mcg other day Tablets Senna 2 cap po at hs 60caps Unknown 8.6mg Capsules Calcium + D 2 tablet po daily 60tabs Unknown Tablets History Medications Enalapril Maleate 1 tap PO q day 90tabs I47.1 Rosio Patterson, 02/01/2016 - 2.5mg M.D. 04/20/2016 Tablets Atenolol 1 by mouth once in 60tabs Sea S. 01/30/2016 - 25mg Tablets am Watt, DO 03/10/2016 FAC Enalapril Maleate 1 by mouth every 90tabs Rosio Patterson, 01/30/2016 - 10mg day M.D. 02/01/2016 Tablets Enalapril Maleate 4 tab po qd 30tabs Rosio Patterson, 10/19/2015 - 2.5mg M.D. 01/01/2016 Tablets Metoprolol Succinate 1 by mouth each 30tabs 427.69 Rosio Patterson, 2014 - ER night M.D. 10/08/2014 50mg Tablets ER 24HR Aspir-Low 1 by mouth every 30tabs 427.1 Rosio Patterson, 09/18/2014 - 81mg Tablets day M.D. 04/24/2015 Allopurinol 1 po once a day Unknown 09/18/2014 - 200 Tablets (pt is taking 2 03/23/2016 100mg tabs) Eplerenone 1tab by mouth 60tabs 401.9 Rosio Patterson, 06/24/2014 - 25mg Tablets alternating days M.D. 09/21/2014 with lasix Enalapril Maleate take 2 tabs by 30tabs Rosio Patterson, 05/25/2014 - 10mg mouth bid. M.D. 08/16/2014 Tablets Spironolactone 2 by mouth every 90tabs 428.0 Rosio Patterson, 05/11/2014 - 25mg day M.D. 06/24/2014 Tablets Ventolin HFA patient using prn 1units Rosio Patterson, 05/26/2013 - throat tickling M.D. 01/16/2014 108(90Base) mcg/Act Aerosol Carvedilol two tablets in am 270tabs Rosio Patterson, 10/07/2012 - 3.125mg and two tablets by M.D. 09/24/2014 Tablets mouth every evening Amlodipine Besylate 1 po qd 90tabs Rosio Patterson, 05/28/2012 - 5mg M.D. 01/14/2014 Tablets Echinacea 1 cap po bid Unknown - 400mg 06/23/2014 Capsules Vasotec 1/2 tab po qd 90tabs Rosio Patterson, - 20mg Tablets M.D. 10/19/2015 Furosimide 1 tab every sunday 60tabs Rosio Patterson, - 20mg Tablets , sunday M.D. 02/04/2015 and sunday Metoprolol Succinate 1/2 tab by mouth 90tabs Rosio Patterson, - ER every day at at M.D. 05/18/2015 50mg Tablets ER 24HR bedtime Apple Cider Vinegar 1 tsp bid Unknown - 10/23/2015 Cefuroxime Axetil 1 tablet po twice Sandeep Verónica, - 500mg daily x 14 days ( 12/27/2015 Tablets To take until 11/05/15) Aciphex 1 tablet po bid Unknown - 20mg 03/23/2016 Famotidine 1 tab PO as needed Unknown - 40mg Tablets 01/27/2019 Sulindac 1 tab PO Am, 1 tab Unknown - 100mg Tablet PO hs 07/17/2018 Hydrocortisone Unknown - 5mg 11/05/2017 Tablets Potassium 2 po qd Unknown - 99mg Tablets 05/11/2014 Budesonide via nebulizer bid 180units Unknown - 0.25mg/2ML as needed 08/13/2015 Suspension Sulindac bid Unknown - 200mg Tablets 03/23/2016 Vitamin C 1 po qd 90tabs Unknown - 500mg Tablets 06/23/2014 Multivitamins 1 capsule rufino;y 30caps Unknown - Capsules 08/22/2017 Metformin HCL 2 tablet po pm 180tabs Unknown - 500mg 03/23/2016 Tablets Aciphex 1 po bid 90tabs Unknown - 20mg Tablets DR 08/14/2014 Quinapril HCL 1 po bid 90tabs Unknown - 20mg 05/26/2013 Tablets Lasix 1 tablet qam 14tabs Unknown - 20mg Tablets alternating with 09/18/2014 eplerenone Enalapril Maleate 1 po bid 200tabs Unknown - 20mg 05/11/2014 Tablets Synthroid 1 po qd 30tabs Unknown - 125mcg 05/26/2013 Tablets Immunizations CPT Code Status Date Vaccine Lot # [id number] Given 05/21/2014 Influenza Virus 3Yrs & Over Vital Signs Date Vital Result Comment 02/14/2019 8:44am Height 64 inches 5'4" Weight 144.00 lb per pt Heart Rate 72 /min BP Systolic Sitting 120 mmHg BP Diastolic Sitting 78 mmHg Respiratory Rate 14 /min Body Temperature 98.9 F BMI (Body Mass Index) 24.7 kg/m2 01/28/2019 8:44am Height 64 inches 5'4" Weight 146.12 lb Heart Rate 88 /min BP Systolic Sitting 124 mmHg BP Diastolic Sitting 70 mmHg Respiratory Rate 14 /min Body Temperature 98.9 F BMI (Body Mass Index) 25.1 kg/m2 07/18/2018 1:44pm Weight 149.00 lb without shoes Heart Rate 80 /min BP Systolic Sitting 112 mmHg Lue reg cuff BP Diastolic Sitting 70 mmHg Lue reg cuff BP Systolic Standing 104 mmHg Lue reg cuff BP Diastolic Standing 68 mmHg Lue reg cuff Respiratory Rate 16 /min 02/21/2018 3:27pm BP Systolic Sitting 126 mmHg manual cuff left arm BP Diastolic Sitting 76 mmHg manual cuff left arm 11/20/2017 9:46am Height 64 inches 5'4" Weight 152.00 lb No shoes Heart Rate 68 /min BP Systolic Sitting 126 mmHg Lue reg cuff BP Diastolic Sitting 76 mmHg Lue reg cuff BP Systolic Standing 122 mmHg Lue reg cuff BP Diastolic Standing 78 mmHg Lue reg cuff Respiratory Rate 16 /min BMI (Body Mass Index) 26.1 kg/m2 Ejection Fraction 50-55% 03/29/2016-echo 11/06/2017 9:37am Height 64 inches 5'4" Weight 150.75 lb without shoes Heart Rate 73 /min BP Systolic Sitting 148 mmHg L arm with reg cuf BP Diastolic Sitting 80 mmHg L arm with reg cuf BP Systolic Standing 156 mmHg BP Diastolic Standing 84 mmHg Respiratory Rate 20 /min O2 % BldC Oximetry 97 % Ra BMI (Body Mass Index) 25.9 kg/m2 Ejection Fraction 60% 01/0910/19/2017 10:43am Height 64 inches 5'4" Heart Rate 80 /min BP Systolic 126 mmHg BP Diastolic 80 mmHg Respiratory Rate 16 /min Body Temperature 97.8 F Pain Level 2 09/18/2017 8:59am Height 64 inches 5'4" Weight 152.00 lb BP Systolic Sitting 130 mmHg BP Diastolic Sitting 71 mmHg Pain Level 2 BMI (Body Mass Index) 26.1 kg/m2 09/10/2017 10:21am Height 64 inches 5'4" Weight 1502.00 lb Heart Rate 69 /min BP Systolic 126 mmHg BP Diastolic 76 mmHg Respiratory Rate 18 /min Body Temperature 98.0 F Pain Level 0 BMI (Body Mass Index) 257.8 kg/m2 08/22/2017 3:18pm Height 64 inches 5'4" Weight 152.00 lb Heart Rate 92 /min BP Systolic Sitting 130 mmHg BP Diastolic Sitting 74 mmHg Pain Level 5 BMI (Body Mass Index) 26.1 kg/m2 06/06/2017 8:43am Height 64 inches 5'4" Weight 152.00 lb BP Systolic 128 mmHg BP Diastolic 82 mmHg Respiratory Rate 14 /min Body Temperature 98.3 F Pain Level 8 BMI (Body Mass Index) 26.1 kg/m2 03/01/2017 2:51pm Height 64 inches 5'4" Weight 150.00 lb no shoes Heart Rate 76 /min BP Systolic Sitting 140 mmHg Lue reg cuff BP Diastolic Sitting 82 mmHg Lue reg cuff BP Systolic Standing 134 mmHg Lue reg cuff BP Diastolic Standing 76 mmHg Lue reg cuff Respiratory Rate 16 /min BMI (Body Mass Index) 25.7 kg/m2 Ejection Fraction 50-55% 03/30/2016-echo 08/28/2016 8:25am Height 64 inches 5'4" Weight 143.00 lb no shoes Heart Rate 88 /min BP Systolic Sitting 152 mmHg BP Diastolic Sitting 90 mmHg BP Systolic Standing 156 mmHg BP Diastolic Standing 88 mmHg Respiratory Rate 18 /min BMI (Body Mass Index) 24.5 kg/m2 Ejection Fraction 50-55% 03/30/2016 04/21/2016 11:26am Height 64 inches 5'4" Weight 155.00 lb Heart Rate 92 /min BP Systolic Sitting 140 mmHg left arm, reg cuff BP Diastolic Sitting 92 mmHg left arm, reg cuff BP Systolic Standing 128 mmHg left arm, reg cuff BP Diastolic Standing 86 mmHg left arm, reg cuff Respiratory Rate 20 /min BMI (Body Mass Index) 26.6 kg/m2 Ejection Fraction 50-55% 03/30/16 03/20/2016 1:02pm Height 64 inches 5'4" Weight 155.00 lb w/o shoes Heart Rate 110 /min reg BP Systolic Sitting 106 mmHg Lue, reg cuff BP Diastolic Sitting 70 mmHg Lue, reg cuff BP Systolic Standing 94 mmHg Lue BP Diastolic Standing 70 mmHg Lue Respiratory Rate 16 /min BMI (Body Mass Index) 26.6 kg/m2 Ejection Fraction 50% as of 09/22/14 echo 03/10/2016 9:31am Height 64 inches 5'4" Weight 159.00 lb no shoes Heart Rate 70 /min BP Systolic Sitting 108 mmHg LA, reg cuff BP Diastolic Sitting 70 mmHg LA, reg cuff BP Systolic Standing 112 mmHg LA BP Diastolic Standing 74 mmHg LA Respiratory Rate 14 /min BMI (Body Mass Index) 27.3 kg/m2 Ejection Fraction 50% 09/22/14 02/23/2016 11:25am Height 64 inches 5'4" Weight 160.00 lb [...] kg/m2 Ejection Fraction 50% ECHO 09/22/14 02/23/2016 11:19am Height 64 inches 5'4" Ejection Fraction 50% echo 09/22/14 02/01/2016 9:16am Height 64 inches 5'4" Weight 156.00 lb w/o shoes Heart Rate 58 /min reg BP Systolic Sitting 120 mmHg Lue, reg cuff BP Diastolic Sitting 84 mmHg Lue, reg cuff BP Systolic Standing 116 mmHg Lue BP Diastolic Standing 80 mmHg Lue Respiratory Rate 16 /min BMI (Body Mass Index) 26.8 kg/m2 Ejection Fraction 50% As of 09/22/14 echo 12/07/2015 3:18pm Height 64 inches 5'4" Weight 156.00 lb without shoes Heart Rate 82 /min BP Systolic Sitting 172 mmHg LA reg cuff BP Diastolic Sitting 90 mmHg LA reg cuff BP Systolic Standing 168 mmHg LA reg cuff BP Diastolic Standing 90 mmHg LA reg cuff Respiratory Rate 18 /min BMI (Body Mass Index) 26.8 kg/m2 Ejection Fraction 50% date 09/22/14 ECHO 10/28/2015 3:05pm Height 64 inches 5'4" Weight 154.00 lb without shoes Heart Rate 92 /min BP Systolic Sitting 104 mmHg LA reg cuff BP Diastolic Sitting 76 mmHg LA reg cuff BP Systolic Standing 110 mmHg LA reg cuff BP Diastolic Standing 78 mmHg LA reg cuff Respiratory Rate 17 /min BMI (Body Mass Index) 26.4 kg/m2 Ejection Fraction 50% date 09/22/14 ECHO 10/19/2015 1:46pm Height 64 inches 5'4" Weight 154.00 lb Heart Rate 84 /min BP Systolic Sitting 104 mmHg LA reg cuff BP Diastolic Sitting 78 mmHg LA reg cuff BP Systolic Standing 108 mmHg LA BP Diastolic Standing 86 mmHg LA Respiratory Rate 16 /min BMI (Body Mass Index) 26.4 kg/m2 Ejection Fraction 50% 09/22/14 10/12/2015 2:52pm Height 64 inches 5'4" Weight 154.50 lb w/o shoes Heart Rate 92 /min reg BP Systolic Sitting 104 mmHg Lue, reg cuff BP Diastolic Sitting 70 mmHg Lue, reg cuff BP Systolic Standing 106 mmHg Lue BP Diastolic Standing 66 mmHg Lue Respiratory Rate 18 /min BMI (Body Mass Index) 26.5 kg/m2 Ejection Fraction 50% As of 09/22/14 echo 07/28/2015 2:55pm Height 64 inches 5'4" Weight 155.00 lb w/o shoes Heart Rate 78 /min reg BP Systolic Sitting 120 mmHg Lue, reg cuff BP Diastolic Sitting 72 mmHg Lue, reg cuff BP Systolic Standing 124 mmHg Lue BP Diastolic Standing 74 mmHg Lue Respiratory Rate 18 /min BMI (Body Mass Index) 26.6 kg/m2 Ejection Fraction 50% as of 09/22/14 echo 04/30/2015 7:58am Height 64 inches 5'4" Weight 164.00 lb without shoes Heart Rate 84 /min BP Systolic Sitting 124 mmHg L arm reg cuff BP Diastolic Sitting 70 mmHg L arm reg cuff BP Systolic Standing 120 mmHg BP Diastolic Standing 70 mmHg Respiratory Rate 18 /min BMI (Body Mass Index) 28.1 kg/m2 Ejection Fraction 50 09/22/14 04/20/2015 2:15pm Height 64 inches 5'4" Weight 170.00 lb w/o shoes Heart Rate 78 /min irreg BP Systolic Sitting 126 mmHg Lue, reg cuff BP Diastolic Sitting 80 mmHg Lue, reg cuff BP Systolic Standing 128 mmHg Lue BP Diastolic Standing 80 mmHg Lue Respiratory Rate 18 /min BMI (Body Mass Index) 29.2 kg/m2 Ejection Fraction 50% as of 09/22/14 echo 04/14/2015 1:11pm Height 64 inches 5'4" Weight 172.00 lb w/o shoes Heart Rate 54 /min irreg BP Systolic Sitting 116 mmHg Lue, reg cuff BP Diastolic Sitting 80 mmHg Lue, reg cuff BP Systolic Standing 110 mmHg Lue BP Diastolic Standing 74 mmHg Lue Respiratory Rate 18 /min BMI (Body Mass Index) 29.5 kg/m2 Ejection Fraction 50% as of 09/22/14 echo 02/10/2015 8:54am Height 64 inches 5'4" Weight 170.50 lb Heart Rate 64 /min BP Systolic 140 mmHg LA reg BP Diastolic 88 mmHg LA reg BMI (Body Mass Index) 29.3 kg/m2 Ejection Fraction 50% 09/22/14 ECHO 12/30/2014 4:12pm Height 64 inches 5'4" Weight 171.00 lb w/o shoes Heart Rate 62 /min reg BP Systolic Sitting 124 mmHg Ra, reg cuff BP Diastolic Sitting 74 mmHg Ra, reg cuff BP Systolic Standing 124 mmHg Ra BP Diastolic Standing 66 mmHg Ra Respiratory Rate 18 /min BMI (Body Mass Index) 29.3 kg/m2 Ejection Fraction 50% Visual Ef as of 09/22/2014 10/30/2014 8:15am Height 64 inches 5'4" Weight 166.00 lb w/o shoes Heart Rate 76 /min reg BP Systolic Sitting 126 mmHg LA, reg cuff BP Diastolic Sitting 70 mmHg LA, reg cuff BP Systolic Standing 130 mmHg LA BP Diastolic Standing 70 mmHg LA Respiratory Rate 16 /min BMI (Body Mass Index) 28.5 kg/m2 10/13/2014 12:43pm Height 64 inches 5'4" Weight 166.00 lb Heart Rate 66 /min BP Systolic Sitting 140 mmHg right arm, reg cuff BP Diastolic Sitting 82 mmHg right arm, reg cuff BP Systolic Standing 132 mmHg right arm, reg cuff BP Diastolic Standing 84 mmHg right arm, reg cuff Respiratory Rate 16 /min BMI (Body Mass Index) 28.5 kg/m2 09/29/2014 4:25pm Weight 164.00 lb Heart Rate 68 /min BP Systolic Sitting 108 mmHg LA, reg cuff BP Diastolic Sitting 64 mmHg LA, reg cuff BP Systolic Standing 128 mmHg LA BP Diastolic Standing 78 mmHg LA Respiratory Rate 16 /min 09/24/2014 1:56pm Weight 164.00 lb with out shoes Heart Rate 82 /min 70 BP Systolic Sitting 102 mmHg LA reg cuff BP Diastolic Sitting 56 mmHg LA reg cuff Respiratory Rate 17 /min 09/21/2014 2:57pm Weight 164.00 lb without shoes 09/21/2014 8:11am Height 64 inches 5'4" Weight 165.00 lb Heart Rate 99 /min BP Systolic Sitting 134 mmHg BP Diastolic Sitting 70 mmHg Respiratory Rate 18 /min O2 % BldC Oximetry 98 % BMI (Body Mass Index) 28.3 kg/m2 09/18/2014 1:33pm Height 64 inches 5'4" Weight 169.00 lb Heart Rate 72 /min BP Systolic Sitting 144 mmHg Ra reg cuff BP Diastolic Sitting 82 mmHg Ra reg cuff BP Systolic Standing 136 mmHg Ra BP Diastolic Standing 78 mmHg Ra Respiratory Rate 16 /min BMI (Body Mass Index) 29.0 kg/m2 08/17/2014 8:31am Height 64 inches 5'4" Weight 163.00 lb Heart Rate 70 /min BP Systolic Sitting 142 mmHg right arm, reg cuff BP Diastolic Sitting 78 mmHg right arm, reg cuff BP Systolic Standing 136 mmHg right arm, reg cuff BP Diastolic Standing 76 mmHg right arm, reg cuff Respiratory Rate 16 /min BMI (Body Mass Index) 28.0 kg/m2 08/14/2014 7:38am Height 64 inches 5'4" Weight 162.00 lb no shoes Heart Rate 62 /min BP Systolic Sitting 116 mmHg LA, reg cuff BP Diastolic Sitting 78 mmHg LA, reg cuff BP Systolic Standing 116 mmHg LA BP Diastolic Standing 74 mmHg LA Respiratory Rate 16 /min BMI (Body Mass Index) 27.8 kg/m2 07/21/2014 8:48am Height 64 inches 5'4" Weight 169.00 lb Heart Rate 78 /min BP Systolic Sitting 116 mmHg left arm, reg cuff BP Diastolic Sitting 74 mmHg left arm, reg cuff Respiratory Rate 16 /min O2 % BldC Oximetry 97 % Room air BMI (Body Mass Index) 29.0 kg/m2 Neck Circumference in inches 15 07/13/2014 1:59pm Height 64 inches 5'4" Weight 166.00 lb no shoes Heart Rate 70 /min BP Systolic Sitting 126 mmHg LA, reg cuff BP Diastolic Sitting 74 mmHg LA, reg cuff BP Systolic Standing 122 mmHg LA BP Diastolic Standing 78 mmHg LA Respiratory Rate 14 /min BMI (Body Mass Index) 28.5 kg/m2 06/24/2014 11:00am Height 64 inches 5'4" Weight 166.00 lb without shoes Heart Rate 76 /min BP Systolic Sitting 120 mmHg Ra reg cuff BP Diastolic Sitting 70 mmHg Ra reg cuff BP Systolic Standing 122 mmHg Ra reg cuff BP Diastolic Standing 70 mmHg Ra reg cuff Respiratory Rate 16 /min BMI (Body Mass Index) 28.5 kg/m2 06/17/2014 7:59am Height 64 inches 5'4" Weight 167.00 lb no shoes Heart Rate 78 /min BP Systolic Sitting 160 mmHg LA, Lg cuff BP Diastolic Sitting 82 mmHg LA, Lg cuff BP Systolic Standing 124 mmHg LA BP Diastolic Standing 80 mmHg LA Respiratory Rate 16 /min BMI (Body Mass Index) 28.7 kg/m2 05/25/2014 4:14pm BP Systolic 158 mmHg right arm reg cuff BP Diastolic 86 mmHg right arm reg cuff BP Systolic Sitting 167 mmHg right arm home cuff BP Diastolic Sitting 93 mmHg right arm home cuff 05/25/2014 4:08pm Heart Rate 87 /min BP Systolic 180 mmHg LA home cuff standing BP Diastolic 95 mmHg LA home cuff standing BP Systolic Sitting 164 mmHg LA reg cuff BP Diastolic Sitting 84 mmHg LA reg cuff Respiratory Rate 19 /min 05/20/2014 8:32am Height 64 inches 5'4" Weight 165.75 lb [...] BMI (Body Mass Index) 28.4 kg/m2 05/11/2014 12:06pm Height 64 inches 5'4" Weight 168.00 lb with shoes Heart Rate 60 /min BP Systolic Sitting 106 mmHg Ra reg cuff BP Diastolic Sitting 80 mmHg Ra reg cuff BP Systolic Standing 100 mmHg Ra reg cuff BP Diastolic Standing 76 mmHg Ra reg cuff Respiratory Rate 16 /min BMI (Body Mass Index) 28.8 kg/m2 05/26/2013 9:08am Height 63.5 inches 5'3.50" Weight 177.00 lb up 3 lbs Heart Rate 80 /min BP Systolic Sitting 128 mmHg Ra reg cuff BP Diastolic Sitting 80 mmHg Ra reg cuff BP Systolic Standing 132 mmHg Ra BP Diastolic Standing 78 mmHg Ra Respiratory Rate 16 /min BMI (Body Mass Index) 30.9 kg/m2 Results Test Date Facility Test Result H/L Range Note CBC Auto Diff 2018 [facility] White Blood 8.4 10^3/uL N 3.5-10.[address] [place] [address] [phone] Red Blood Count 4.13 10^6/uL N 3.70-4.87 Hemoglobin 13.2 g/dL N 12.0-16.0 Hematocrit 38 % N 33-41 Mean Corpuscular Volume 93 fL N 80-97 Mean Corpuscular Hemoglobin 32 pg High 27-31 Mean Corpuscular HGB Conc 35 g/dL N 31-36 Red Cell Distribution Width 13 % N 10.5-15 Platelet Count 233 10^3/uL N 150-450 Mean Platelet Volume 7.9 fL N 7.4-10.4 Abs Neutrophils 5.2 10^3/uL N 1.5-7.7 Abs Lymphocytes 1.7 10^3/uL N 1.0-4.8 Abs Monocytes 1.1 10^3/uL High 0-0.8 Abs Eosinophils 0.3 10^3/uL N 0-0.6 Abs Basophils 0.1 10^3/uL N 0-0.2 Abs Nucleated RBC 0 10^3/uL Granulocyte % 62.5 % Lymphocyte % 20.7 % Monocyte % 12.7 % Eosinophil % 3.3 % Basophil % 0.8 % Nucleated Red Blood Cells % 0.3 Basic Metabolic Panel 2018 [facility] Sodium 137 mmol/L N 135-[address] [place] [address] [phone] Potassium 4.3 mmol/L N 3.5-5.0 Chloride 102 mmol/L N 101-111 Co2 Carbon Dioxide 27 mmol/L N 22-32 Anion Gap 8 mmol/L N 2-11 Glucose 111 mg/dL High 70-100 Blood Urea Nitrogen 15 mg/dL N 6-24 Creatinine 0.80 mg/dL N 0.51-0.95 BUN/Creatinine Ratio 18.8 N 8-20 Calcium 8.7 mg/dL N 8.6-10.3 Egfr Non- 70.5 >60 Egfr 85.3 >60 1 Laboratory test 2018 [facility] Magnesium 2.0 mg/dL N 1.9-2.[address] [place] [address] [phone] Laboratory test 11/07/2017 [facility] B-Type 25 pg/mL [address] [place] [address] Peptide BNP [phone] Platelet Count 09/07/2017 [facility] Platelet Count 254 N 150- [address] 10^3/[place] [address] [phone] Mean Platelet Volume 8 um3 N 7.4-10.4 Inr/Protime 09/07/2017 [facility] Inr 0.94 N 0.77-1.[address] [place] [address] [phone] Laboratory test 09/07/2017 [facility] Partial 31.8 N 26.0- 36.[address] [place] [address] PTT [phone] Laboratory test 08/30/2016 [facility] Magnesium 2.1 mg/dL N 1.9-2.[address] [place] [address] [phone] CBC Auto Diff 08/30/2016 [facility] White Blood 6.0 10^3/uL N 3.5-10.[address] [place] [address] [phone] Red Blood Count 4.49 10^6/uL N 4.0-5.4 Hemoglobin 13.8 g/dL N 12.0-16.0 Hematocrit 41 % N 35-47 Mean Corpuscular Volume 92 fL N 80-97 Mean Corpuscular Hemoglobin 31 pg N 27-31 Mean Corpuscular HGB Conc 34 g/dL N 31-36 Red Cell Distribution Width 15 % N 10.5-15 Platelet Count 202 10^3/uL N 150-450 Mean Platelet Volume 8 um3 N 7.4-10.4 Abs Neutrophils 2.2 10^3/uL N 1.5-7.7 Abs Lymphocytes 2.8 10^3/uL N 1.0-4.8 Abs Monocytes 0.6 10^3/uL N 0-0.8 Abs Eosinophils 0.4 10^3/uL N 0-0.6 Abs Basophils 0.1 10^3/uL N 0-0.2 Abs Nucleated RBC 0 10^3/uL N Granulocyte % 36.7 % Low 38-83 Lymphocyte % 46.2 % N 25-47 Monocyte % 9.5 % High 1-9 Eosinophil % 6.3 % High 0-6 Basophil % 1.3 % N 0-2 Nucleated Red Blood Cells % 0.1 N Comp Metabolic Panel 08/30/2016 [facility] Sodium 140 mmol/L N 133-[address] [place] [address] [phone] Potassium 4.3 mmol/L N 3.5-5.0 Chloride 103 mmol/L N 101-111 Co2 Carbon Dioxide 32 mmol/L N 22-32 Anion Gap 5 mmol/L N 2-11 Glucose 97 mg/dL N 70-100 Blood Urea Nitrogen 19 mg/dL N 6-24 Creatinine 0.85 mg/dL N 0.51-0.95 BUN/Creatinine Ratio 22.4 High 8-20 Calcium 9.3 mg/dL N 8.6-10.3 Total Protein 6.9 g/dL N 6.4-8.9 Albumin 3.9 g/dL N 3.2-5.2 Globulin 3.0 g/dL N 2-4 Albumin/Globulin Ratio 1.3 N 1-3 Total Bilirubin 1.00 mg/dL N 0.2-1.0 Alkaline Phosphatase 59 U/L N 34-104 Alt 11 U/L N 7-52 Ast 15 U/L N 13-39 Egfr Non- 66.3 N >60 Egfr 85.3 N >60 3 Laboratory test 08/30/2016 [facility] TSH (Thyroid 0.29 Low 0.34-5.[address] Stim Horm) mcIU/[place] [address] [phone] T3 Free 3.30 pg/mL N 2.5-3.9 Free T4 (Free Thyroxine) 1.08 ng/dL N 0.61-1.12 Hemoglobin A1c (Glyco HGB) 5.3 % N Less than 6.0 4 Basic Metabolic Panel 03/20/2016 [facility] Sodium 136 mmol/L N 133-[address] [place] [address] [phone] Potassium 3.9 mmol/L N 3.5-5.0 Chloride 99 mmol/L Low 101-111 Co2 Carbon Dioxide 27 mmol/L N 22-32 Anion Gap 10 mmol/L N 2-11 Glucose 116 mg/dL High 70-100 Blood Urea Nitrogen 10 mg/dL N 6-24 Creatinine 0.89 mg/dL N 0.51-0.95 BUN/Creatinine Ratio 11.2 N 8-20 Calcium 9.3 mg/dL N 8.6-10.3 Egfr Non- 62.9 N >60 Egfr 80.9 N >60 5 CBC Auto Diff 03/20/2016 [facility] White Blood 6.9 10^3/uL N 3.5-10.[address] [place] [address] [phone] Red Blood Count 4.35 10^6/uL N 4.0-5.4 Hemoglobin 13.6 g/dL N 12.0-16.0 Hematocrit 40 % N 35-47 Mean Corpuscular Volume 93 fL N 80-97 Mean Corpuscular Hemoglobin 31 pg N 27-31 Mean Corpuscular HGB Conc 34 g/dL N 31-36 Red Cell Distribution Width 14 % N 10.5-15 Platelet Count 253 10^3/uL N 150-450 Mean Platelet Volume 8 um3 N 7.4-10.4 Abs Neutrophils 2.9 10^3/uL N 1.5-7.7 Abs Lymphocytes 2.8 10^3/uL N 1.0-4.8 Abs Monocytes 0.7 10^3/uL N 0-0.8 Abs Eosinophils 0.4 10^3/uL N 0-0.6 Abs Basophils 0.1 10^3/uL N 0-0.2 Abs Nucleated RBC 0 10^3/uL N Granulocyte % 42.3 % N 38-83 Lymphocyte % 40.0 % N 25-47 Monocyte % 10.8 % High 1-9 Eosinophil % 5.4 % N 0-6 Basophil % 1.5 % N 0-2 Nucleated Red Blood Cells % 0 N Laboratory test 03/20/2016 [facility] C Reactive 2.58 mg/L N < 5.00 6 finding [address] [facility] [place] [address] [phone] Erythrocyte Sed Rate 31 mm/Hr N 0-40 Thyroid Panel 03/20/2016 [facility] Free T4 (Free 1.04 ng/dL N 0.61-1.12 [facility] Thyroxine) [place] [address] [phone] Thyroxine 8.89 ?g/dL N 6.09-12.23 TSH (Thyroid Stim Horm) 1.60 mcIU/mL N 0.34-5.60 Laboratory test finding 03/20/2016 [facility] Ast (Sgot) 21 U/L N 13-39 [address] [place] [address] [phone] Amylase 28 U/L Low 29-103 Lipase 40 U/L N 11.0-82.0 Basic Metabolic Panel 02/29/2016 [facility] Sodium 138 mmol/L N 133-145 [address] [place] [address] [phone] Potassium 4.3 mmol/L N 3.5-5.0 Chloride 101 mmol/L N 101-111 Co2 Carbon Dioxide 29 mmol/L N 22-32 Anion Gap 8 mmol/L N 2-11 Glucose 100 mg/dL N 70-100 Blood Urea Nitrogen 19 mg/dL N 6-24 Creatinine 1.02 mg/dL High 0.51-0.95 BUN/Creatinine Ratio 18.6 N 8-20 Calcium 8.7 mg/dL N 8.6-10.3 Egfr Non- 53.7 N >60 Egfr 69.1 N >60 7 Laboratory test 02/29/2016 [facility] Magnesium 1.8 mg/dL Low 1.9-2.7 8 finding [address] [place] [address] [phone] Basic Metabolic 10/27/2015 [facility] Sodium 136 mmol/L N 133- 145 Panel [address] [place] [address] [phone] Potassium 3.9 mmol/L N 3.5-5.0 Chloride 99 mmol/L Low 101-111 Co2 Carbon Dioxide 29 mmol/L N 22-32 Anion Gap 8 mmol/L N 2-11 Glucose 92 mg/dL N 70-100 Blood Urea Nitrogen 20 mg/dL N 6-24 Creatinine 0.80 mg/dL N 0.51-0.95 BUN/Creatinine Ratio 25.0 High 8-20 Calcium 9.0 mg/dL N 8.6-10.3 Egfr Non- 71.3 N >60 Egfr 91.7 N >60 9 Laboratory test 10/27/2015 [facility] Magnesium 2.0 mg/dL N 1.9-2.7 finding [address] [place] [address] [phone] CBC Auto Diff 10/27/2015 [facility] White Blood 6.6 N 3.5- 10.8 [address] [facility] Count 10^3/[place] [address] [phone] Red Blood Count 3.95 10^6/uL Low 4.0-5.4 Hemoglobin 12.7 g/dL N 12.0-16.0 Hematocrit 37 % N 35-47 Mean Corpuscular Volume 93 fL N 80-97 Mean Corpuscular Hemoglobin 32 pg High 27-31 Mean Corpuscular HGB Conc 35 g/dL N 31-36 Red Cell Distribution Width 13 % N 10.5-15 Platelet Count 222 10^3/uL N 150-450 Mean Platelet Volume 8 um3 N 7.4-10.4 Abs Neutrophils 2.7 10^3/uL N 1.5-7.7 Abs Lymphocytes 2.9 10^3/uL N 1.0-4.8 Abs Monocytes 0.6 10^3/uL N 0-0.8 Abs Eosinophils 0.3 10^3/uL N 0-0.6 Abs Basophils 0.1 10^3/uL N 0-0.2 Abs Nucleated RBC 0 10^3/uL N Granulocyte % 40.5 % N 38-83 Lymphocyte % 44.0 % N 25-47 Monocyte % 9.3 % High 1-9 Eosinophil % 5.1 % N 0-6 Basophil % 1.1 % N 0-2 Nucleated Red Blood Cells % 0.1 N CBC Auto Diff 08/12/2015 [facility] White Blood 9.3 10^3/uL N 3.5-10.[address] [place] [address] [phone] Red Blood Count 4.39 10^6/uL N 4.0-5.4 Hemoglobin 13.6 g/dL N 12.0-16.0 Hematocrit 42 % N 35-47 Mean Corpuscular Volume 95 fL N 80-97 Mean Corpuscular Hemoglobin 31 pg N 27-31 Mean Corpuscular HGB Conc 32 g/dL N 31-36 Red Cell Distribution Width 14 % N 10.5-15 Platelet Count 248 10^3/uL N 150-450 Mean Platelet Volume 8 um3 N 7.4-10.4 Abs Neutrophils 4.9 10^3/uL N 1.5-7.7 Abs Lymphocytes 3.3 10^3/uL N 1.0-4.8 Abs Monocytes 0.8 10^3/uL N 0-0.8 Abs Eosinophils 0.2 10^3/uL N 0-0.6 Abs Basophils 0.1 10^3/uL N 0-0.2 Abs Nucleated RBC 0.01 10^3/uL N Granulocyte % 53.2 % N 38-83 Lymphocyte % 35.1 % N 25-47 Monocyte % 8.3 % N 1-9 Eosinophil % 2.3 % N 0-6 Basophil % 1.1 % N 0-2 Nucleated Red Blood Cells % 0.1 N Comp Metabolic Panel 08/12/2015 [facility] Sodium 135 mmol/L N 133-[address] [place] [address] [phone] Potassium 4.7 mmol/L N 3.5-5.0 Chloride 97 mmol/L Low 101-111 Co2 Carbon Dioxide 29 mmol/L N 22-32 Anion Gap 9 mmol/L N 2-11 Glucose 94 mg/dL N 70-100 Blood Urea Nitrogen 23 mg/dL N 6-24 Creatinine 0.90 mg/dL N 0.51-0.95 BUN/Creatinine Ratio 25.6 High 8-20 Calcium 9.7 mg/dL N 8.6-10.3 Total Protein 7.4 g/dL N 6.4-8.9 Albumin 4.1 g/dL N 3.2-5.2 Globulin 3.3 g/dL N 2-4 Albumin/Globulin Ratio 1.2 N 1-3 Total Bilirubin 0.60 mg/dL N 0.2-1.0 Alkaline Phosphatase 68 U/L N 34-104 Alt 13 U/L N 7-52 Ast 15 U/L N 13-39 Egfr Non- 62.3 N >60 Egfr 80.1 N >60 10 Laboratory test 08/12/2015 [facility] TSH (Thyroid 0.30 ?IU/mL Low 0.34-5.[address] Stim Horm) [place] [address] [phone] T3 Free 2.80 pg/mL N 2.5-3.9 Free T4 (Free Thyroxine) 1.38 ng/mL High 0.61-1.12 Vitamin B12 > 1450 pg/mL High 180-914 11 Vitamin D Total 25(Oh) 55.3 ng/mL High 30-50 Basic Metabolic Panel 02/09/2015 [facility] Sodium 134 mmol/L N 133-[address] [place] [address] [phone] Potassium 4.1 mmol/L N 3.5-5.0 Chloride 101 mmol/L N 101-111 Co2 Carbon Dioxide 25 mmol/L N 22-32 Anion Gap 8 mmol/L N 2-11 Glucose 96 mg/dL N 70-100 Blood Urea Nitrogen 24 mg/dL N 6-24 Creatinine 0.92 mg/dL N 0.51-0.95 BUN/Creatinine Ratio 26.1 High 8-20 Calcium 9.0 mg/dL N 8.6-10.3 Egfr Non- 60.7 N >60 Egfr 78.1 N >60 12 Laboratory test 02/09/2015 [facility] B-Type 69 pg/mL N [address] [place] [address] Peptide BNP [phone] CBC No Diff 10/06/2014 [facility] White Blood Count 10.2 N 4.8 -[address] 10^3/uL 0.8 [place] [address] [phone] Red Blood Count 3.65 10^6/uL Low 4.0-5.4 Hemoglobin 12.2 g/dL N 12.0-16.0 Hematocrit 36 % N 35-47 Mean Corpuscular Volume 98 fL High 80-97 Mean Corpuscular Hemoglobin 33 pg High 27-31 Mean Corpuscular HGB Conc 34 g/dL N 31-36 Red Cell Distribution Width 13 % N 10.5-15 Platelet Count 248 10^3/uL N 150-450 Mean Platelet Volume 8 um3 N 7.4-10.4 Basic Metabolic Panel 10/06/2014 [facility] Sodium 139 mmol/L N 133-[address] [place] [address] [phone] Potassium 4.3 mmol/L N 3.5-5.0 Chloride 105 mmol/L N 101-111 Co2 Carbon Dioxide 28 mmol/L N 22-32 Anion Gap 6 mmol/L N 2-11 Glucose 97 mg/dL N 70-100 Blood Urea Nitrogen 20 mg/dL N 6-24 Creatinine 0.97 mg/dL High 0.51-0.95 BUN/Creatinine Ratio 20.6 High 8-20 Calcium 8.8 mg/dL N 8.6-10.3 Egfr Non- 57.3 N >60 Egfr 73.7 N >60 14 Inr/Protime 10/06/2014 [facility] Inr 0.97 N 0.78-1.[address] [place] [address] [phone] Laboratory test 10/06/2014 [facility] Activated 33.4 N 26.0- 36.3 [address] [place] [address] Thrombo Time [phone] Surgical 10/06/2014 [facility] S RUN DATE: [address] 10/07/ <[place] [address] NOTE> [phone] Laboratory test 10/01/2014 [facility] Acth 58 pg/mL N [address] [place] [address] [phone] Dhea Sulfate 21.8 g/dL N <15-157 18 Laboratory test finding 09/18/2014 Magnesium 1.9 mg/dL N 1.9-2.7 Basic Metabolic Panel 09/18/2014 Sodium 137 mmol/L N 133-145 Potassium 3.9 mmol/L N 3.5-5.0 Chloride 100 mmol/L Low 101-111 Co2 Carbon Dioxide 31 mmol/L N 22-32 Anion Gap 6 mmol/L N 2-11 Glucose 107 mg/dL High 70-100 Blood Urea Nitrogen 12 mg/dL N 6-24 Creatinine 1.04 mg/dL High 0.51-0.95 BUN/Creatinine Ratio 11.5 N 8-20 Calcium 9.3 mg/dL N 8.6-10.3 Egfr Non- 52.9 N >60 Egfr 68.0 N >60 19 Basic Metabolic Panel 09/01/2014 [facility] Sodium 138 mmol/L N 133-[address] [place] [address] [phone] Potassium 4.4 mmol/L N 3.5-5.0 Chloride 102 mmol/L N 101-111 Co2 Carbon Dioxide 28 mmol/L N 22-32 Anion Gap 8 mmol/L N 2-11 Glucose 96 mg/dL N 70-100 Blood Urea Nitrogen 19 mg/dL N 6-24 Creatinine 0.91 mg/dL N 0.51-0.95 BUN/Creatinine Ratio 20.9 High 8-20 Calcium 8.7 mg/dL N 8.6-10.3 Egfr Non- 61.7 N >60 Egfr 79.3 N >60 20 Urine Culture And 08/14/2014 [facility] Urine Culture (SEE 21, [address] NOTE) [place] [address] [phone] Laboratory test 08/14/2014 [facility] B Type 24 pg/mL N [address] [place] [address] Peptide [phone] Comp Metabolic 08/14/2014 [facility] Sodium 136 N 133- Panel [address] mmol/L 145 [place] [address] [phone] Potassium 4.2 mmol/L N 3.5-5.0 Chloride 104 mmol/L N 101-111 Co2 Carbon Dioxide 26 mmol/L N 22-32 Anion Gap 6 mmol/L N 2-11 Glucose 91 mg/dL N 70-100 Blood Urea Nitrogen 35 mg/dL High 6-24 Creatinine 1.28 mg/dL High 0.51-0.95 BUN/Creatinine Ratio 27.3 High 8-20 Calcium 8.0 mg/dL Low 8.6-10.3 Total Protein 7.1 g/dL N 6.4-8.9 Albumin 4.1 g/dL N 3.2-5.2 Globulin 3.0 g/dL N 2-4 Albumin/Globulin Ratio 1.4 N 1-3 Total Bilirubin 0.60 mg/dL N 0.2-1.0 Alkaline Phosphatase 61 U/L N 34-104 Alt 17 U/L N 7-52 Ast 19 U/L N 13-39 Egfr Non- 41.6 N >60 Egfr 53.5 N >60 24 CBC Auto Diff 08/14/2014 [facility] White Blood 8.6 10^3/uL N 4.8-10.[address] [place] [address] [phone] Red Blood Count 4.25 10^6/uL N 4.0-5.4 Hemoglobin 14.2 g/dL N 12.0-16.0 Hematocrit 42 % N 35-47 Mean Corpuscular Volume 98 fL High 80-97 Mean Corpuscular Hemoglobin 33 pg High 27-31 Mean Corpuscular HGB Conc 34 g/dL N 31-36 Red Cell Distribution Width 14 % N 10.5-15 Platelet Count 252 10^3/uL N 150-450 Mean Platelet Volume 8 um3 N 7.4-10.4 Abs Neutrophils 4.6 10^3/uL N 1.5-7.7 Abs Lymphocytes 2.8 10^3/uL N 1.0-4.8 Abs Monocytes 1.0 10^3/uL High 0-0.8 Abs Eosinophils 0.1 10^3/uL N 0-0.6 Abs Basophils 0.1 10^3/uL N 0-0.2 Abs Nucleated RBC 0.01 10^3/uL N Granulocyte % 53.7 % N 38-83 Lymphocyte % 32.3 % N 25-47 Monocyte % 11.8 % High 1-9 Eosinophil % 1.6 % N 0-6 Basophil % 0.6 % N 0-2 Nucleated Red Blood Cells % 0.1 N Urinalysis Profile 08/14/2014 [facility] Urine Color Yellow N [address] [place] [address] [phone] Urine Appearance Cloudy N Urine Specific [place] 1.017 N 1.010-1.030 Urine pH 5.0 N 5-9 Urine Urobilinogen Negative N Negative Urine Ketones Negative N Negative Urine Protein Negative N Negative Urine Leukocytes Negative N Negative Urine Blood Negative N Negative * * Abnormal Negative 25 Urine Nitrite Negative N Negative Urine Bilirubin Negative N Negative Urine Glucose Negative N Negative Laboratory test 08/14/2014 [facility] Uric Acid 6.4 mg/dL N 2.3-6.6 finding [address] [place] [address] [phone] Basic Metabolic 07/14/2014 [facility] Sodium 133 mmol/L N 133- 145 26 Panel [address] [place] [address] [phone] Potassium 4.1 mmol/L N 3.5-5.0 Chloride 99 mmol/L Low 101-111 Co2 Carbon Dioxide 29 mmol/L N 22-32 Anion Gap 5 mmol/L N 2-11 Glucose 104 mg/dL High 70-100 Blood Urea Nitrogen 26 mg/dL High 6-24 Creatinine 1.03 mg/dL High 0.51-0.95 BUN/Creatinine Ratio 25.2 High 8-20 Calcium 8.8 mg/dL N 8.6-10.3 Egfr Non- 53.4 N >60 Egfr 68.7 N >60 27 Basic Metabolic Panel 07/06/2014 [facility] Sodium 135 mmol/L N 133-145 28 [address] [place] [address] [phone] Potassium 4.3 mmol/L N 3.5-5.0 29 Chloride 102 mmol/L N 101-111 Co2 Carbon Dioxide 24 mmol/L N 22-32 Anion Gap 9 mmol/L N 2-11 Glucose 119 mg/dL High 70-100 Blood Urea Nitrogen 39 mg/dL High 6-24 Creatinine 1.43 mg/dL High 0.51-0.95 BUN/Creatinine Ratio 27.3 High 8-20 Calcium 9.2 mg/dL N 8.6-10.3 Egfr Non- 36.6 N >60 Egfr 47.1 N >60 30 Laboratory test 07/06/2014 [facility] Magnesium 2.1 mg/dL N 1.9-2.7 31 finding [address] [place] [address] [phone] Basic Metabolic 06/05/2014 [facility] Sodium 135 mmol/L N 133- 145 Panel [address] [place] [address] [phone] Potassium 4.0 mmol/L N 3.7-5.6 Chloride 101 mmol/L N 101-111 Co2 Carbon Dioxide 28 mmol/L N 22-32 Anion Gap 6 mmol/L N 2-11 Glucose 91 mg/dL N 70-100 Blood Urea Nitrogen 28 mg/dL High 6-24 Creatinine 1.07 mg/dL High 0.51-0.95 BUN/Creatinine Ratio 26.2 High 8-20 Calcium 9.1 mg/dL N 8.6-10.3 Egfr Non- 51.1 N >60 Egfr 65.8 N >60 32 Basic Metabolic Panel 05/18/2014 [facility] Sodium 136 mmol/L N 133-145 33 [address] [place] [address] [phone] Potassium 4.2 mmol/L N 3.7-5.6 Chloride 101 mmol/L N 101-111 Co2 Carbon Dioxide 27 mmol/L N 22-32 Anion Gap 8 mmol/L N 2-11 Glucose 104 mg/dL High 70-100 Blood Urea Nitrogen 24 mg/dL N 6-24 Creatinine 1.10 mg/dL High 0.51-0.95 BUN/Creatinine Ratio 21.8 High 8-20 Calcium 9.1 mg/dL N 8.6-10.3 Egfr Non- 49.5 N >60 Egfr 63.7 N >60 34 Comp Metabolic Panel 07/21/2013 [facility] Sodium 138 mmol/L 133-145 [address] [place] [address] [phone] Potassium 3.8 mmol/L 3.5-5.0 Chloride 101 mmol/L [...] Egfr Non- 62.6 >60 Egfr 80.6 >60 35 Laboratory test 07/21/2013 [facility] Hemoglobin A1c 6.2 % High Less than [address] 6.0 [place] [address] [phone] Free T4 0.75 ng/mL 0.61-1.24 37 TSH (Thyroid Stimulating Horm) 2.16 miu/mL 0.34-5.60 38 Urine Microalbumin 07/21/2013 [facility] Ur Microalbumin 7.0 mg/ L [address] (mg/L) [place] [address] [phone] Urine Creatinine 266.4 mg/dL Urine Microalbumin/Creatinine 2.6 Less Than 31 Basic Metabolic Panel 03/27/2013 [facility] Sodium 138 mmol/L 133-[address] [place] [address] [phone] Potassium 4.1 mmol/L 3.5-5.0 Chloride 102 mmol/L 101-111 Co2 Carbon Dioxide 26.0 mmol/L 22-32 Anion Gap 10.0 mmol/L 2-11 Glucose 111 mg/dL High 70-100 Blood Urea Nitrogen 15 mg/dL 6-24 Creatinine 0.70 mg/dL 0.50-1.40 BUN/Creatinine Ratio 21.4 High 8-20 Calcium 9.1 mg/dL 8.1-9.9 Egfr Non- 83.7 >60 Egfr 107.7 >60 40 Laboratory test 03/27/2013 [facility] Potassium 4.2 mmol/L 3.5-5.[address] [place] [address] [phone] Magnesium 2.2 mg/dL 1.7-2.6 C Reactive Protein 2.0 mg/dL High Less than 0.5 CBC No Diff 03/27/2013 [facility] White Blood 6.8 10^3/uL 4.8 -10.[address] [place] [address] [phone] Red Blood Count 4.27 10^6/uL 4.0-5.4 Hemoglobin 13.5 g/dL 12.0-16.0 Hematocrit 39 % 35-47 Mean Corpuscular Volume 92 fL 80-97 Mean Corpuscular Hemoglobin 32 pg High 27-31 Mean Corpuscular HGB Conc 34 g/dL 31-36 Red Cell Distribution Width 14 % 10.5-15 Platelet Count 244 10^3/uL 150-450 Mean Platelet Volume 8 um3 7.4-10.4 Laboratory test 03/27/2013 [facility] Erythrocyte Sed 28 mm/Hr 0-[address] [place] [address] [phone] Rheumatoid Factor <15 IU/mL <15 41 Laboratory test 07/19/2012 [facility] Uric Acid 8.5 mg/dL High 2.6-7.[address] [place] [address] [phone] Free T4 1.09 ng/mL 0.61-1.24 TSH (Thyroid Stimulating Horm) 0.42 miu/mL 0.34-5.60 1 Because ethnic data is not always readily [...] 15-29 5 Kidney failure <15 (or dialysis) 2 >100 to <200 pg/mL: likely compensated congestive heart failure (CHF) 200 to 400 pg/mL: likely moderate CHF >400 pg/mL: likely moderate to severe CHF 3 Because ethnic data is not always [...] 5 Kidney failure <15 (or dialysis) 4 Therapeutic target for the treatment of diabetes Mellitus patients is <7% HBA1C, and in selective patients <6.0%.Please refer to [place] [employer] Diabetic care guidelines for further information. 5 Because ethnic data is not always [...] 5 Kidney failure <15 (or dialysis) 6 Acute inflammation: >10.00 7 Because ethnic data is not always [...] 5 Kidney failure <15 (or dialysis) 8 3-4 weeks, meds adjusted Copy Result to: BRITTANY MORATAYA ([id number]) 9 Because ethnic data is not always readily [...] 15-29 5 Kidney failure <15 (or dialysis) 10 Because ethnic data is not always [...] 5 Kidney failure <15 (or dialysis) 11 Normal Range 180 to 914 Indeterminate Range 145 to 180 Deficient Range <145 12 Because ethnic data is not always readily [...] 15-29 5 Kidney failure <15 (or dialysis) 13 >100 to <200 pg/mL: likely compensated congestive heart failure (CHF) 200 to 400 pg/mL: likely moderate CHF >400 pg/mL: likely moderate to severe CHF 14 Because ethnic data is not always readily [...] 15-29 5 Kidney failure <15 (or dialysis) 15 Effective October 02, 2014 at 12:00pm there is an updated reference range. 16 RUN DATE: 10/07/14 [facility] LAB LIVE PAGE 1 RUN TIME: [address] [place] [address] Specimen Inquiry Name: MOOSEAUDRA Manjinder : [address]: Sergio Carter MD Acct: [id number] Unit: [id number] AGE: 68 Location: [facility] Re10/06/14 SEX: F Status: REG REF SPEC: [id number] JORDYN: 10/06/14- SUBM DR: Sergio Carter MD REQ: [id number] RECD: 10/06/14 STATUS: SOUT _ ORDERED: LEVEL I FINAL DIAGNOSIS Defibrillator generator, removal: Foreign body (ICD generator) (Gross diagnosis). CLINICAL HISTORY No history given GROSS DESCRIPTION The specimen is received fresh labeled, ICD Generator, and consists of a 6.3 x 5.0 x 1.5 cm silver metallic medical genetics director. The following inscription is identified: [employer] SN [id number]. Per established hospital medical staff protocol, no tissue is submitted. Gross only. Signed (signature on file) Misael Yanez MD [id number] END OF REPORT * ML=Testing performed at Main Lab DEPARTMENT OF PATHOLOGY, [address] [place] [address] Misael Yanez M.D. Director [facility] # [id number] 17 REFERENCE VALUE 10-60 (a.m. collection) Test Performed by: [place] [address] Structural Engineering Project Manager: Mao Lucero II, M.D., Ph.D. 18 Test Performed by: [place] [address] Structural Engineering Project Manager: Mao Lucero II, M.D., Ph.D. 19 Because ethnic data is not always readily [...] 15-29 5 Kidney failure <15 (or dialysis) 20 Because ethnic data is not always readily [...] 15-29 5 Kidney failure <15 (or dialysis) 21 UA unremarkable, symptoms from overdiuresis, no repeat UC planned. 22 RUN DATE: 08/16/14 [facility] LAB LIVE PAGE 1 RUN TIME: [address] [place] [address] Specimen Inquiry Name: AUDRA VIRK : [address]: Rosio Patterson MD Acct: [id number] Unit: [id number] AGE: 68 Location: LAB Re08/14/14 SEX: F Status: REG REF SPEC: [id number] JORDYN: 08/14/[address]: Rosio Patterson MD REQ: [id number] RECD: 08/14/14 STATUS: LANDRY GAMBINO DR: Brittany Morataya DO _ SOURCE: URINE SPDESC: ORDERED: Urine Culture QUERIES: Provider Requisition # [id number] Procedure Result Verified Site Urine Culture Final 08/16/14910 ML Organism 1 NORMAL SHONDA Hobbs Count >100,000 (Many) CFU/ML END OF REPORT * ML=Testing performed at Main Lab DEPARTMENT OF PATHOLOGY, [address] [place] [address] Misael Yanez M.D. Director [facility] # [id number] 23 >100 to <200 pg/mL: likely compensated congestive heart failure (CHF) 200 to 400 pg/mL: likely moderate CHF >400 pg/mL: likely moderate to severe CHF MI HEART 24 Because ethnic data is not always readily [...] 15-29 5 Kidney failure <15 (or dialysis) 25 *Ascorbic acid is present which may interfere with detection of blood. 26 PATIENT IS FASTING 27 Because ethnic data is not always readily [...] 15-29 5 Kidney failure <15 (or dialysis) 28 1 week after starting eplerenone- non-fasting 29 Potassium reference range changed effective 06/07/14 30 Because ethnic data is not always [...] 5 Kidney failure <15 (or dialysis) 31 1 week after starting eplerenone- non-fasting 32 Because ethnic data is not always [...] 5 Kidney failure <15 (or dialysis) 33 in 7-10 days 34 Because ethnic data is not always readily [...] 15-29 5 Kidney failure <15 (or dialysis) 35 Because ethnic data is not always readily [...] 15-29 5 Kidney failure <15 (or dialysis) 36 Therapeutic target for the treatment of diabetes Mellitus patients is <7% HBA1C, and in selective patients <6.0%.Please refer to [place] [employer] Diabetic care guidelines for further information. 37 FASTING 38 FASTING 39 Microalbuminuria in a random sample is defined as: Microalbumin/Creatinine ratio of 30-299 ug/mg. 40 Because ethnic data is not always readily [...] 15-29 5 Kidney failure <15 (or dialysis) 41 Test Performed by: [address] [address] Structural Engineering Project Manager: Campos Christianson III, M.D. Procedures Date Code Description Status 07/18/2018 35955 Interrogation Implant Cardiovasc Monitor System Incl Completed Analysis Int 07/18/2018 87026 Interrogation Implant Cardiovasc Monitor System Incl Completed Analysis Int 07/18/2018 64427 Icd Eval With Inerative Adjustmt Dual Lead System Completed 07/18/2018 37922 Icd Eval With Inerative Adjustmt Dual Lead System Completed 04/19/2018 33007 Interrogation Implant Cardiovasc Monitor System Incl Completed Analysis Int 04/19/2018 06413 Icd Eval With Inerative Adjustmt Dual Lead System Completed 02/21/2018 42950 Interrogation Implant Cardiovasc Monitor System Incl Completed Analysis Int 02/21/2018 87481 Interrogation Implant Cardiovasc Monitor System Incl Completed Analysis Int 02/21/2018 42471 Icd Eval With Inerative Adjustmt Dual Lead System Completed 02/21/2018 91490 Icd Eval With Inerative Adjustmt Dual Lead System Completed 11/06/2017 37996 Icd Eval With Inerative Adjustmt Dual Lead System Completed 11/06/2017 28764 Icd Eval With Inerative Adjustmt Dual Lead System Completed 11/06/2017 80423 Interrogation Implant Cardiovasc Monitor System Incl Completed Analysis Int 11/06/2017 66122 Interrogation Implant Cardiovasc Monitor System Incl Completed Analysis Int 09/10/2017 77468 Closed TRTMT Supracondylar Completed 07/24/2017 45605 Interrogation Implant Cardiovasc Monitor System Incl Completed Analysis Int 07/24/2017 72567 Interrogation Implant Cardiovasc Monitor System Incl Completed Analysis Int 07/24/2017 62991 Icd Eval With Inerative Adjustmt Dual Lead System Completed 07/24/2017 65922 Icd Eval With Inerative Adjustmt Dual Lead System Completed 03/29/2017 66673 Icd Check Single,Dual Or Multiple In Person W/DR Incl Completed Heart Rhyth 03/01/2017 78772 Icd Eval With Inerative Adjustmt Dual Lead System Completed 03/01/2017 52233 Interrogation Implant Cardiovasc Monitor System Incl Completed Analysis Int 02/07/2017 [id number] Bone Mineral Density Test Completed 11/16/2016 53556 Icd Check Single,Dual Or Multiple In Person W/DR Incl Completed Heart Rhyth 10/31/2016 38818 Icd Eval Sing,Dual,Multi Lead Remote Recpt Transm Tech Completed Rev Tech S 10/31/2016 21485 Icd Check Remote Up To 90 Days Single,Dual,Multiple Completed Lead 08/28/2016 92133 EKG Tracing & Interpretation Completed 04/21/2016 50976 Icd Check Remote Up To 90 Days Single,Dual,Multiple Completed Lead 04/21/2016 23575 Icd Eval Sing,Dual,Multi Lead Remote Recpt Transm Tech Completed Rev Tech S 03/30/2016 93120 ECHO Transthoracic, Real-Time 2D With Doppler And Completed Color Flow 03/20/2016 89928 EKG Tracing & Interpretation Completed 02/23/2016 39382 Interrogation Implant Cardiovasc Monitor System Incl Completed Analysis Int 02/23/2016 61912 Interrogation Device Eval In Person W/DR Completed Analysis,Single,Dual,Mul 02/01/2016 82276 Icd Eval With Inerative Adjustmt Dual Lead System Completed 02/01/2016 30497 EKG Tracing & Interpretation Completed 01/30/2016 07674 Icd Check Single,Dual Or Multiple In Person W/DR Incl Completed Heart Rhyth 10/28/2015 68087 Interrogation Implant Cardiovasc Monitor System Incl Completed Analysis Int 10/28/2015 69994 Icd Eval With Inerative Adjustmt Dual Lead System Completed 10/12/2015 94309 EKG Tracing & Interpretation Completed 10/11/2015 49909 Interrogation Implant Cardiovasc Monitor System Incl Completed Analysis Int 10/11/2015 64220 Icd Check Single,Dual Or Multiple In Person W/DR Incl Completed Heart Rhyth 07/28/2015 31188 Interrogation Implant Cardiovasc Monitor System Incl Completed Analysis Int 07/28/2015 15002 Icd Check Single,Dual Or Multiple In Person W/DR Incl Completed Heart Rhyth 06/21/2015 62402 Interrogation Implant Cardiovasc Monitor System Incl Completed Analysis Int 06/21/2015 08497 Icd Eval With Inerative Adjustmt Dual Lead System Completed 04/20/2015 40327 EKG Tracing & Interpretation Completed 04/14/2015 05487 EKG Tracing & Interpretation Completed 02/17/2015 56078 Interrogation Implant Cardiovasc Monitor System Incl Completed Analysis Int 02/17/2015 12934 Icd Check Single,Dual Or Multiple In Person W/DR Incl Completed Heart Rhyth 02/10/2015 16341 EKG Tracing & Interpretation Completed 10/30/2014 54834 EKG Tracing & Interpretation Completed 10/15/2014 38922 Icd Eval With Inerative Adjustmt Dual Lead System Completed 10/09/2014 03994 EKG, Interpretation Only Completed 10/08/2014 98187 EKG, Interpretation Only Completed 10/07/2014 95602 EKG, Interpretation Only Completed 10/06/2014 97692 Ep Eval Icd AT Implant Completed 10/06/2014 66058 Removal Dual Lead Pacing Cardioverter-Defibrillator Completed W/Replacmt 09/22/2014 96952 ECHO Transthoracic, Real-Time 2D With Doppler And Completed Color Flow 09/21/2014 06743 Holter Monitoring 24 HR New Completed 09/21/2014 08556 EKG Tracing & Interpretation Completed 09/18/2014 58576 Interrogation Implant Cardiovasc Monitor System Incl Completed Analysis Int 09/18/2014 37443 Icd Eval With Inerative Adjustmt Dual Lead System Completed 08/17/2014 71973 Polysomnography Sleep Staging 4+ Parameters Completed 08/05/2014 01791 Interrogation Implant Cardiovasc Monitor System Incl Completed Analysis Int 08/05/2014 92205 Icd Check Single,Dual Or Multiple In Person W/DR Incl Completed Heart Rhyth 05/20/2014 34928 Icd Check Single,Dual Or Multiple In Person W/DR Incl Completed Heart Rhyth 05/11/2014 04093 Interrogation Implant Cardiovasc Monitor System Incl Completed Analysis Int 05/11/2014 06322 Icd Eval With Inerative Adjustmt Dual Lead System Completed 03/19/2014 53792 Interrogation Implant Cardiovasc Monitor System Incl Completed Analysis Int 03/19/2014 13103 Icd Check Single,Dual Or Multiple In Person W/DR Incl Completed Heart Rhyth 12/31/2013 82293 ECHO Transthoracic, Real-Time 2D With Doppler And Completed Color Flow 12/22/2013 32703 Icd Eval With Inerative Adjustmt Dual Lead System Completed 08/18/2013 93107 Interrogation Implant Cardiovasc Monitor System Incl Completed Analysis Int 08/18/2013 99062 Icd Eval With Inerative Adjustmt Dual Lead System Completed 04/17/2013 50126 Icd Eval With Inerative Adjustmt Dual Lead System Completed 02/12/2013 46663 ECHO Transthoracic, Real-Time 2D With Doppler And Completed Color Flow 02/05/2013 07307 Stress Test Completed 01/31/2013 98105 EKG Tracing & Interpretation Completed 01/30/2013 22834 Icd Eval With Inerative Adjustmt Dual Lead System Completed 10/02/2012 21522 Interrogation Implant Cardiovasc Monitor System Incl Completed Analysis Int 10/02/2012 60298 Icd Eval With Inerative Adjustmt Dual Lead System Completed 08/12/2012 60764232 Mammogram Completed 07/24/2012 90158 Interrogation Implant Cardiovasc Monitor System Incl Completed Analysis Int 07/24/2012 16537 Icd Eval With Inerative Adjustmt Dual Lead System Completed 07/02/2007 69037 EKG, Interpretation Only Completed 07/02/2007 76362 EKG, Interpretation Only Completed Encounters Type Date Location Provider Dx Diagnosis Office Visit 01/28/2019 [facility] Phillip Adame K13.79 Other lesions of 8:50a Infectious Myles Cazares oral mucosa Diseases Office Visit 07/18/2018 [facility] Rosio Patterson, I42.9 Cardiomyopathy, 1:30p Of Eduardo Bueno unspecified Z95.810 Presence of automatic (implantable) cardiac defibrillator I49.3 Ventricular premature depolarization 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 Office Visit 02/22/2018 8:30a [facility] Justino Quinterozer, L82.1 Other seborrheic MD keratosis S51.812A Laceration without foreign body of left forearm, init encntr L30.8 Other specified dermatitis L72.0 Epidermal cyst D22.71 Melanocytic nevi of right lower limb, including hip Office Visit 11/20/2017 [facility] Kailyn Gomez I47.1 Supraventricular 10:00a Cardiology Of Candida Lyn tachycardia Eduardo I42.9 Cardiomyopathy, unspecified I50.42 Chronic combined systolic and diastolic hrt fail Office Visit 11/06/2017 [facility] Rosio Patterson, Z95.810 Presence of 10:15a Cardiology Imani Bueno automatic Eduardo (implantable) cardiac defibrillator I42.9 Cardiomyopathy, unspecified I50.42 Chronic combined systolic and diastolic hrt fail Office Visit 09/18/2017 [facility] V[facility] M47.892 Other 9:00a Services Of Eduardo Mckoy MD spondylosis, cervical region M50.121 Cervical disc disorder at C4-C5 level with radiculopathy M50.122 Cervical disc disorder at C5-C6 level with radiculopathy Office Visit 08/22/2017 3:30p Neurosurgery Vassilios M54.2 Cervicalgia Services Of Eduardo Mckoy MD M54.5 Low back pain M47.892 Other spondylosis, cervical region M54.12 Radiculopathy, cervical region Office Visit 06/06/2017 Orthopedic Jason M54.12 Radiculopathy, 8:30a Services Of Myles Cortez cervical region C.M.A. Office Visit 03/01/2017 [facility] Rosio Patterson, Z95.810 Presence of 3:00p Cardiology Of M.DMasoud automatic Mine Safety Engineer (implantable) cardiac defibrillator I47.1 Supraventricular tachycardia I47.2 Ventricular tachycardia Office Visit 09/21/2016 [facility] A41.9 Sepsis, 11:45a Assoc,ankit Sharif M.D. unspecified Hospitalists organism E23.0 Hypopituitarism I42.9 Cardiomyopathy, unspecified Office Visit 09/20/2016 11:44a [facility] A41.9 Sepsis, Assoc,ankit Delgado M.D. unspecified Hospitalists organism E23.0 Hypopituitarism I42.9 Cardiomyopathy, unspecified Office Visit 08/28/2016 Donna Patterson I42.9 Cardiomyopathy, 8:40a Cardiology Of M.D. unspecified [facility] Z95.810 Presence of automatic (implantable) cardiac defibrillator I47.1 Supraventricular tachycardia I49.3 Ventricular premature depolarization I10 Essential (primary) hypertension Office Visit 04/21/2016 Donna Patterson I42.Rod Cardiomyopathy, 11:20a Cardiology Of M.D. unspecified [place] Safety Engineer [place] [facility] Z95.810 Presence of automatic (implantable) cardiac defibrillator I47.1 Supraventricular tachycardia I49.3 Ventricular premature depolarization I35.0 Nonrheumatic aortic (valve) stenosis Office Visit 03/20/2016 1:15p [facility] Rosio Patterson, R42 Dizziness and Of Mine Safety Engineer M.DMasoud giddiness R11.0 Nausea M54.5 Low back pain R43.9 Unspecified disturbances of smell and taste J34.89 Other specified disorders of nose and nasal sinuses Office Visit 03/10/2016 9:45a Donna Turner Z95.810 Presence of Cardiology Of [place] automatic Mine Safety Engineer (implantable) cardiac defibrillator R53.83 Other fatigue R53.81 Other malaise I42.9 Cardiomyopathy, unspecified R42 Dizziness and giddiness I47.1 Supraventricular tachycardia Office Visit 02/23/2016 Donna Turner I47.1 Supraventricular 11:30a Cardiology Of [place] tachycardia Mine Safety Engineer Z95.810 Presence of automatic (implantable) cardiac defibrillator R53.83 Other fatigue I10 Essential (primary) hypertension I42.9 Cardiomyopathy, unspecified Office Visit 02/01/2016 Donna Patterson I47.1 Supraventricular 9:00a Cardiology Of M.D. tachycardia Mine Safety Engineer R42 Dizziness and giddiness I42.8 Other cardiomyopathies Z95.810 Presence of automatic (implantable) cardiac defibrillator Office Visit 01/30/2016 Donna Gomez I42.9 Cardiomyopathy, 12:43p Cardiology Of Watt, DO unspecified Mine Safety Engineer FACC I47.1 Supraventricular tachycardia I49.3 Ventricular premature depolarization Z95.810 Presence of automatic (implantable) cardiac defibrillator Office Visit 12/07/2015 Donna Patterson I42.9 Cardiomyopathy, 3:30p Cardiology Of M.D. unspecified Mine Safety Engineer I10 Essential (primary) hypertension Office Visit 10/28/2015 Donna Patterson I42.9 Cardiomyopathy, 3:00p Cardiology Of M.D. unspecified Mine Safety Engineer Z95.810 Presence of automatic (implantable) cardiac defibrillator J01.90 Acute sinusitis, unspecified R42 Dizziness and giddiness Office Visit 10/19/2015 Donna Turner I42.8 Other cardiomyopathies 2:00p Cardiology Of [place] Mine Safety Engineer R42 Dizziness and giddiness I95.9 Hypotension, unspecified Office Visit 10/12/2015 Donna Patterson I42.9 Cardiomyopathy, 2:45p Cardiology Of M.D. unspecified Mine Safety Engineer I47.2 Ventricular tachycardia J01.90 Acute sinusitis, unspecified R42 Dizziness and giddiness I50.42 Chronic combined systolic and diastolic hrt fail Z95.810 Presence of automatic (implantable) cardiac defibrillator I10 Essential (primary) hypertension Office Visit 07/28/2015 3:00p [facility] Nasima Turner I47.2 Ventricular Of Mine Safety Engineer PA tachycardia I42.9 Cardiomyopathy, unspecified Z95.810 Presence of automatic (implantable) cardiac defibrillator I10 Essential (primary) hypertension I49.3 Ventricular premature depolarization Office Visit 04/30/2015 8:00a [facility] Rosio Patterson I47.2 Ventricular Of Mine Safety Engineer M.D. tachycardia R41.1 Anterograde amnesia R53.83 Other fatigue I10 Essential (primary) hypertension E23.0 Hypopituitarism G47.33 Obstructive sleep apnea (adult) (pediatric) Z95.810 Presence of automatic (implantable) cardiac defibrillator Office Visit 04/20/2015 2:15p [facility] Rosio Patterson, 427.1 Paroxysmal Of Mine Safety Engineer M.D. Ventricular Tachycardia 782.7 Ecchymoses Spontaneous 780.79 Malaise And Fatigue Other 780.93 Memory Loss 794.31 Electrocardiogram (ECG) (EKG) Abnormal Office Visit 04/14/2015 1:30p [facility] Rosio Patterson 427.1 Paroxysmal Of Mine Safety Engineer M.D. Ventricular Tachycardia V45.02 Cardiac Defibrillator Automatic Implantable Postsurgical 782.7 Ecchymoses Spontaneous 786.03 Apnea 794.31 Electrocardiogram (ECG) (EKG) Abnormal Office Visit 02/10/2015 9:00a [facility] Nasima Turner 425.4 Cardiomyopathy Other Of Mine Safety Engineer PA Prim 401.9 Hypertension Unspec 427.0 PSVT Paroxysmal Supraventricular Tachycardia 427.1 Paroxysmal Ventricular Tachycardia 786.05 Shortness Of Breath 427.69 Premature Beats Other Office Visit 10/09/2014 [facility] Rosio Patterson 425.4 Cardiomyopathy Other 2:17p Cardiology Of M.D. Prim Mine Safety Engineer 428.0 Congestive Heart Failure Unspecified 427.1 Paroxysmal Ventricular Tachycardia Office Visit 10/08/2014 [facility] Rosio Patterson 427.0 PSVT Paroxysmal 11:08a Cardiology Of M.D. Supraventricular Mine Safety Engineer Tachycardia 425.4 Cardiomyopathy Other Prim 427.69 Premature Beats Other Office Visit 10/07/2014 Donna Patterson 427.0 PSVT Paroxysmal 11:07a Cardiology Of M.D. Supraventricular Mine Safety Engineer Tachycardia 425.4 Cardiomyopathy Other Prim Office Visit 09/29/2014 [facility] Rosio Patterson 425.4 Cardiomyopathy Other 4:00p Cardiology Of M.D. Prim Mine Safety Engineer V45.02 Cardiac Defibrillator Automatic Implantable Postsurgical 780.4 Dizziness & Giddiness 427.1 Paroxysmal Ventricular Tachycardia Office Visit 09/24/2014 2:00p [facility] Nasima Turner 425.4 Cardiomyopathy Other Of Mine Safety Engineer PA Prim 780.4 Dizziness & Giddiness 401.9 Hypertension Unspec V45.02 Cardiac Defibrillator Automatic Implantable Postsurgical 427.69 Premature Beats Other Office Visit 09/21/2014 8:15a Pulmonology And Arianna 327.23 Obstructive Sleep Sleep Services Of MD [place] Apnea Adult & Mine Safety Engineer Pediatric 473.8 Sinusitis Chronic Other 427.1 Paroxysmal Ventricular Tachycardia Office Visit 09/18/2014 1:30p [facility] Nasima Turner 425.4 Cardiomyopathy Other Of Mine Safety Engineer PA Prim 401.9 Hypertension Unspec 780.79 Malaise And Fatigue Other 427.1 Paroxysmal Ventricular Tachycardia V45.02 Cardiac Defibrillator Automatic Implantable Postsurgical 427.69 Premature Beats Other Office Visit 08/17/2014 8:30a [facility] Nasima Turner 425.4 Cardiomyopathy Other Of Mine Safety Engineer PA Prim 401.9 Hypertension Unspec 786.05 Shortness Of Breath Office Visit 08/14/2014 8:00a [facility] Rosio Patterson, 787.02 Nausea Alone Of Mine Safety Engineer M.D. 443.0 Raynauds Syndrome 425.4 Cardiomyopathy Other Prim 427.1 Paroxysmal Ventricular Tachycardia 599.89 Urinary Tract Other Spec Disorders Office Visit 07/21/2014 8:45a Pulmonology And Arianna 780.59 Sleep Disturbances Sleep Services Of MD [place] Other Mine Safety Engineer 780.54 Hypersomnia Unspecified Office Visit 07/13/2014 2:00p [facility] Nasima Turner 425.4 Cardiomyopathy Other Of Mine Safety Engineer PA Prim 428.0 Congestive Heart Failure Unspecified 401.9 Hypertension Unspec Office Visit 06/24/2014 11:00a [facility] Nasima Turner 425.4 Cardiomyopathy Other Of Mine Safety Engineer PA Prim 401.9 Hypertension Unspec 427.1 Paroxysmal Ventricular Tachycardia 786.05 Shortness Of Breath Office Visit 06/17/2014 8:00a [facility] Rosio Patterson, 401.9 Hypertension Of Mine Safety Engineer M.D. Unspec 425.4 Cardiomyopathy Other Prim 428.0 Congestive Heart Failure Unspecified 784.0 Headache 780.50 Sleep Disturbance Unspec Office Visit 05/25/2014 3:45p [facility] Nurse Visit 425.9 Cardiomyopathy Of Mine Safety Engineer IC Secondary Unspecified Office Visit 05/20/2014 9:30a [facility] Nasima Turner 425.9 Cardiomyopathy Of Mine Safety Engineer PA Secondary Unspecified 427.1 Paroxysmal Ventricular Tachycardia V45.02 Cardiac Defibrillator Automatic Implantable Postsurgical Office Visit 05/11/2014 [facility] Rosio Patterson, V45.02 Cardiac 11:45a Cardiology Of BenjaminMasoud Defibrillator [facility] Automatic Implantable Postsurgical 425.9 Cardiomyopathy Secondary Unspecified 786.05 Shortness Of Breath 428.0 Congestive Heart Failure Unspecified Office Visit 01/16/2014 Donna Patterson, 425.9 Cardiomyopathy 7:45a Cardiology Of M.DMasoud Secondary Mine Safety Engineer Unspecified 427.1 Paroxysmal Ventricular Tachycardia 427.0 PSVT Paroxysmal Supraventricular Tachycardia V45.02 Cardiac Defibrillator Automatic Implantable Postsurgical Office Visit 05/26/2013 [facility] Rosio Patterson, 425.4 Cardiomyopathy Other 8:45a Cardiology Of M.Wendi Prim [facility] 427.1 Paroxysmal Ventricular Tachycardia V45.02 Cardiac Defibrillator Automatic Implantable Postsurgical 780.50 Sleep Disturbance Unspec Office Visit 03/09/2013 10:57a [facility] [place] 786.50 Pain Chest Assoc,ankit Moy M.D. Unspec Hospitalists Hospitalist 425.8 Cardiomyopathy Other Diseases Class Elsewhere Office Visit 01/31/2013 [facility] Rosio Patterson, V72.81 Examination 3:15p Cardiology Of M.Wendi Preoperative Mine Safety Engineer AT [facility] Cardiovascular 427.1 Paroxysmal Ventricular Tachycardia 425.4 Cardiomyopathy Other Prim Office Visit 08/22/2012 3:15p [facility] Nurse Visit 780.4 Dizziness & Of [facility] IC Giddiness Office Visit 08/08/2012 9:45a [facility] Rosio 425.4 Cardiomyopathy Other Of Maribel Oh M.D. 786.09 Dyspnea & Respiratory Abnormalities Other 428.0 Congestive Heart Failure Unspecified 427.1 Paroxysmal Ventricular Tachycardia Plan of Treatment Future Appointment(s):03/25/2019 10:30 am - Rosio Patterson M.D. at [facility]03/25/2019 9:30 am - Ica Pacer Schedule at [facility]04/11/2019 6:00 am - Remote Device Checks at [facility] 8:30 am - Justino Partida MD at [facility]
[2019-03-03] MEDS ORDERED: methylPREDNISolone 125 MG* 2 ML VIAL IV ONE (14:46)
[2019-03-03] MEDS ORDERED: diPHENhydraMINE IV* 50 MG/ML 1 ml VIAL (BENADRYL) IV ONE (14:47)
[2019-03-03 17:37] LABS: Urine Appearance Clear; Urine Bacteria 1+ (Absent); Urine Bilirubin Negative (Negative); Urine Blood Negative (Negative); Urine Color Straw; Urine Glucose Negative (Negative); Urine Ketones Negative (Negative); Urine Nitrite Negative (Negative); Urine Protein Negative (Negative); Urine Red Blood Cell Trace(0-2/hpf) (Absent); Urine Specific Gravity 1.004 (1.010-1.030); Urine Squamous Epithelial Cell Present (Absent); Urine Urobilinogen Negative (Negative); Urine White Blood Cell 1+(6-10/hpf) (Absent)
--- NOTE | 2019-03-03 18:05 | CONS ---
CC: Dr. Patterson * NEUROLOGY CONSULTATION: DATE OF CONSULTATION: 03/03/19 LOCATION: She is in the emergency room. REFERRING PROVIDER: Dr. Jeffery. CHIEF COMPLAINT: Dizziness. HISTORY OF PRESENT ILLNESS: Alexa Viramontes is a 73-year-old woman who first developed some dizziness about 2 weeks ago when she was down in [place]. She had gotten up that morning and was in the shower, washing her hair when suddenly she felt like she was falling sideways. It lasted several minutes and she was able to make it to her bed and lie down. She felt persistent dizziness for about a half an hour and then it resolved. She did not seek attention immediately. The next day she woke up and got out of bed and felt reasonably well. She was in the kitchen, putting some dishes away and she fell to the left side, banging her arm against a window frame. That lasted no more than a couple of minutes. She called a relative who was with her and they took her to the hospital and she was admitted. In the hospital, she reportedly had a negative CT scan of the brain and a normal EKG. Her dizziness resolved prior to being in the hospital and she did not feel well in general for a while that day. She was discharged and came back to [facility]. Yesterday, she was going to get some water and she suddenly developed a sudden dizziness again. Again, it lasted a few minutes and then resolved. She decided not to do any packing that day as she was packing up her house to move out of the area. She had just come back from [facility] in between the [place] trip for her 's memorial service. This morning she got up and was moving things around and suddenly felt very dizzy. It felt in some way that it was going down her left side. The dizziness lasted several minutes and she ended up presenting to the hospital. In the emergency room, she had an elevated blood pressure, which since came down. She was evaluated by Dr. Jeffery with normal neurological exam. She had a CT of the brain which I reviewed and which was interpreted as normal and I agree. She not had any recent falls or head injuries. She has not had any recent infections. She was put on doxycycline when she left the [facility] because of noting that she had been bitten by a tick some time previously. She said they did Lyme disease testing down there and it was reportedly negative. She has not noticed any recent change in hearing, but she has had a slow decline in her hearing. 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 She developed panhypopituitarism. She has been treated with hormone replacement therapy since. She has coronary artery disease and had a cardiac catheterization reportedly in 2005. As part of the workup for her endocrine disorder, she had either IVP or renal artery study and had a skin rash reaction to it. She was said to be allergic to iodinated contract dye since then, but again she underwent a cardiac catheterization well after that in 2005. She had a nonischemic cardiomyopathy and got a defibrillator placed. She has history of nephrolithiasis and congestive heart failure. She has had cataracts extracted. MEDICATIONS AT HOME: Consist of: 1. Pepcid 20 mg p.o. b.i.d. 2. Tikosyn 125 mcg p.o. b.i.d. 3. Potassium supplementation. 4. Calcium supplementation. 5. Vitamin B12 at 1000 mcg p.o. daily. 6. Furosemide 20 mg p.o. every other day. 7. Eplerenone 25 mg every other day. 8. Hydrocortisone 2.5 mg p.o. q. p.m. and 10 mg p.o. q. a.m. 9. Enalapril 10 mg p.o. daily. 10. Gabapentin 300 mg p.o. at bedtime. 11. Levothyroxine 88 mcg p.o. daily. ALLERGIES: She has had skin rashes to AMOXICILLIN and BEE STINGS. She is also listed being allergic to SULFA drugs, MOXIFLOXACIN. IODINATED CONTRAST DYE caused a rash. She is allergic to SURGICAL TAPE, which caused skin burning. SOCIAL HISTORY: She does not smoke. I believe she lives alone and is moving. She does not drink alcohol. REVIEW OF SYSTEMS: Notable for recurrent sinus congestion. She sees a sinus specialist in [place] who monitors her sinuses. She developed sinus problems after a transsphenoidal adenectomy, which subsequently became infected. She has chronic neck pain and clicking. She has been under a lot of stress with the recent passing of her and moving out of her house. There has been no recent weight loss. She has not had any recent fevers or infections. There have been no recent falls. She has noted chronic slow decline in her hearing. PHYSICAL EXAMINATION: She is well nourished and well hydrated. Temperature is 98.6, most recent blood pressure 163/94, although it was listed as 181/126 earlier today. Heart rate is in the 80s and regular. Respiratory rate is 16 and oxygen saturation is 97%. Lungs are clear anterolaterally. Heart is in a regular rhythm. I do not hear any murmurs. There are no anterior or posterior cervical bruits. Head is atraumatic. Oral mucosa is moist and atraumatic. Neurological Exam: Pupils react equally from 4.5 down to 2.5 mm. Eye movements are normal. Funduscopic exam is normal bilaterally. Visual taylor are full to confrontation. There is no ptosis. There is no nystagmus. Facial musculature and facial sensation are intact and symmetric. Palate and tongue are normal. There is no dysarthria. Hearing is intact bilaterally. Motor exam reveals normal tone and strength in the limbs. There is no drift of any limb. There is no sustention or action tremor. [id number] and shuj-pw-velt maneuvers are normal bilaterally. Reflexes are hypoactive, trace at the knees and trace at the ankles. Plantar responses are flexor bilaterally. Sensory exam in the limbs is intact to light touch and vibrations. She is alert and oriented and a good detailed historian. Memory in intact. Language is fluent. She has good attention, concentration, and fund of knowledge. Flakita-Hallpike maneuver was carried out and did not elicit vertigo or nystagmus in either direction. DIAGNOSTIC STUDIES/LAB DATA: Laboratory data reviewed includes a brain CT scan interpreted as normal. I reviewed the images and I agree. Other laboratory studies from today notable for normal chemistry profile, other than a non-fasting glucose of 120. CBC is within normal limits. IMPRESSION: My impression is that Mrs. Viramontes probably has paroxysmal positional vertigo; however, I could not elicit abnormalities on the Flakita- Hallpike maneuver. It would be best if we could image her intracranial vasculature with CT angiogram of neck and brain. She reportedly had a reaction to intravenous contrast dye for a renal study decades ago. However, she had an uneventful cardiac catheterization in 2005. I have spoken with Dr. Jeffery, who is going to see if he can get a CT angiogram of the head and neck and if she needs to be premedicated and delay it for 4 hours, then I think that would be necessary. If it is normal, I think she could be discharged to home for vestibular therapy. She could be treated symptomatically with p.r.n. meclizine, but the definitive treatment would be particle repositioning maneuver by a physical therapist with training in vestibular therapy. I have discussed my impression with Mrs. Viramontes and also Dr. Jeffery. [id number]/[facility] #: [id number] [place]
[2019-03-03] MEDS ORDERED: Iodixanol* (CONTRAST) 320 MG/ML 100 ML SDV IV ONE (18:24)
[2019-03-03 20:37] VITALS: BP 157/86
== END 2019-03-03 20:36 | disposition home or self-care (01) ==
LOC: ED 11:53
DX: R42 Dizziness and giddiness (principal); Z88.0 Allergy status to penicillin; Z88.2 Allergy status to sulfonamides; Z88.8 Allergy status to other drugs, medicaments and biological substances; Z88.1 Allergy status to other antibiotic agents; Z91.041 Radiographic dye allergy status; Z79.899 Other long term (current) drug therapy; E11.9 Type 2 diabetes mellitus without complications; I50.9 Heart failure, unspecified; I11.0 Hypertensive heart disease with heart failure; K21.9 Gastro-esophageal reflux disease without esophagitis; Z95.810 Presence of automatic (implantable) cardiac defibrillator; Z87.891 Personal history of nicotine dependence
CPT/HCPCS: 36415; 70450; 70496; 70498; 71045; 80053; 81003; 81015; 84484; 85025; 85610; 85730; 87086; 93005; 96374; 96375; 99283; J1200; J2930; Q9967

== ENCOUNTER 2019-06-16 11:21 | Day surgery (SDC) | payer MEDICARE, BC ==
[~2019-06-16 11:21] MED LIST: Benzocaine/Butamben/Tetracain (CETACAINE - SINGLE USE) 5 gm TOPICAL ONE; Buffered Lidocaine 1% SYRIN* 1 ML/SYRINGE INTRADERM ONE; Famotidine IV* 10 MG/ML 2 ML (20 mg) IV ONE; Lactated Ringers 1000 ML Bag* 1,000 ML IV SCH; Magnesium Sulfate IV* 0.5 GM/ML 2 ML VIAL (1 GM) IV PRN
[2019-06-16] MEDS ORDERED: Lidocaine 2% PF * 5 ML VIAL ONE (11:25)
[2019-06-16] MEDS ORDERED: Dexamethasone IV* 4 MG/ML 1 ML (4 MG) ONE (11:25)
[2019-06-16] MEDS ORDERED: Propofol* 10 MG/ML 20 ML BTL ONE (11:25)
[2019-06-16] MEDS ORDERED: Succinylcholine* 20 MG/ML 10 ML VIAL ONE (11:25)
[2019-06-16] MEDS ORDERED: Midazolam* 1 MG/ML 5 ML VIAL (5 MG) ONE (11:25)
[2019-06-16] MEDS ORDERED: DiMENhydriNATE IV* 50 MG/ML VIAL ONE (11:25)
[2019-06-16] MEDS ORDERED: Ondansetron INJ* 2 MG/ML VIAL ONE (11:25)
[2019-06-16] MEDS ORDERED: fentaNYL* 50 MCG/ML 2 ML VIAL (100 MCG VIAL) ONE ×2 (11:25→13:58)
[2019-06-16] MEDS ORDERED: Famotidine IV* 10 MG/ML 2 ML (20 mg) ONE (11:53)
[2019-06-16] MEDS ORDERED: Acetaminophen TAB* 325 MG PO PRN (14:23)
[2019-06-16] MEDS ORDERED: Naloxone* 0.4 MG/ML 1 ML VIAL IV PRN (14:23)
[2019-06-16] MEDS ORDERED: oxyCODONE TAB* 5 MG TAB PO PRN (14:23)
[2019-06-16] MEDS ORDERED: DiMENhydriNATE IV* 50 MG/ML VIAL IV PUSH PRN (14:23)
[2019-06-16] MEDS ORDERED: Acetaminophen ADULT LIQ* 650 MG/20.3 ML UDC ONE (14:59)
[2019-06-16] MEDS ORDERED: Acetaminophen ADULT LIQ* 650 MG/20.3 ML UDC PO ONE (15:01)
--- NOTE | 2019-06-16 15:27 | PRO ---
BRONCHOSCOPY REPORT: DATE OF PROCEDURE: 06/16/19 - SDS PROCEDURE PERFORMED: Bronchoscopy with endobronchial ultrasound-guided fine needle aspiration of mediastinal and hilar nodes for lung cancer staging. 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 ANESTHESIA: General anesthesia. ANESTHESIOLOGIST: Dr. Benson. DESCRIPTION OF PROCEDURE: Informed consent was obtained from the patient prior to the procedure after all the risks and benefits were thoroughly explained. Appropriate time-out was performed and agreed on by attending staff. The patient was intubated with size 8.5 endotracheal tube. Flexible Olympus bronchoscope was inserted through ET tube for airway inspection. ET tube confirmed to be 3 cm above the level of [place]. Bronchoscope was then advanced through right bronchial tree which was inspected. Small amounts of secretions were noted and were suctioned. No endobronchial lesions were noted. Bronchoscope was then advanced into left bronchial tree which was inspected. Thin secretions were noted and were suctioned. No endobronchial lesions were noted. Bronchoscope was then withdrawn and EBUS bronchoscope was inserted. Station R10, R12, and R15 were not enlarged and were therefore not sampled. R4 was sampled with 2 passes. Rapid on-site evaluation revealed lymphatic tissue. No malignant cells. Station 7 was then accessed with 2 passes also. Rapid on- site evaluation revealed lymphatic tissue. No malignant cells. Station L10 was then accessed with 2 passes which revealed blood without much lymphatic tissue. Station L4 was then accessed with 2 passes. Rapid on-site evaluation revealed lymphatic tissue with no malignant cells. Bronchoscope was then withdrawn and Olympus bronchoscope was reinserted. Minimal amount of bleeding was noted on both sites and was suctioned out. Bronchoscope was then withdrawn. The patient was extubated and seen in recovery in optimal condition. [id number]/[facility] #: [id number] [facility]
[2019-06-16 16:01] VITALS: BP 140/83
== END 2019-06-16 15:57 | disposition home or self-care (01) ==
LOC: OR 11:21
PROVIDERS: ATTEND Internal Medicine
DX: C34.92 Malignant neoplasm of unspecified part of left bronchus or lung (principal); E11.9 Type 2 diabetes mellitus without complications; Z87.891 Personal history of nicotine dependence; I42.9 Cardiomyopathy, unspecified; M19.90 Unspecified osteoarthritis, unspecified site; I10 Essential (primary) hypertension; E03.9 Hypothyroidism, unspecified; E23.0 Hypopituitarism; Z95.810 Presence of automatic (implantable) cardiac defibrillator
CPT/HCPCS: 88172; 88173; 88177; 88305; A9270-GY; J0330; J1100; J1240; J2250; J2405; J2704; J3010

== ENCOUNTER 2019-12-23 06:11 | Inpatient (IN) ==
[2019-12-23] MEDS ORDERED: NS 0.9% 1000 ml BAG 1,000 ML IV ONE (06:40)
[2019-12-23 07:36] LABS: ABS Basophils 0.1 10^3/ul (0-0.2); ABS Eosinophils 0.4 10^3/ul (0-0.6); ABS Monocytes 0.9 10^3/ul (0-0.8); Eosinophil % 5.2 %; Hematocrit 41 % (35-47); Hemoglobin 14.3 g/dL (12.0-16.0); Lymphocyte % 25.2 %; Mean Corpuscular HGB Conc 35 g/dL (31-36); Mean Corpuscular Hemoglobin 33 pg (27-31); Mean Corpuscular Volume 94 fL (80-97); Mean Platelet Volume 7.8 fL (7.4-10.4); Platelet Count 312 10^3/uL (150-450); Red Blood Count 4.38 10^6 /uL (3.70-4.87); Red Cell Distribution Width 14 % (10-15); White Blood Count 7.8 10^3/uL (3.5-10.8)
[2019-12-23 07:45] LABS: ALT 25 U/L (7-52); Albumin 3.7 g/dL (3.2-5.2); Albumin/Globulin Ratio 0.9 (1-3); Alkaline Phosphatase 99 U/L (34-104); BUN/Creatinine Ratio 16.9 (8-20); Blood Urea Nitrogen 14 mg/dL (6-24); CO2 Carbon Dioxide 26 mmol/L (22-32); Calcium 8.9 mg/dL (8.6-10.3); Chloride 100 mmol/L (101-111); Creatine Kinase 80 U/L (10-223); EGFR African American 81.5 (>60); EGFR Non-African American 67.4 (>60); Glucose 97 mg/dL (70-100); Sodium 134 mmol/L (135-145); Total Protein 7.7 g/dL (6.4-8.9)
[2019-12-23 07:58] LABS: Anion Gap 8 mmol/L (2-11)
[2019-12-23 08:23] LABS: TSH (Thyroid Stimulating Horm) 4.84 mcIU/mL (0.34-5.60)
[2019-12-23 08:36] LABS: Magnesium 2.2 mg/dL (1.9-2.7); Potassium Redraw 4.1 mmol/L (3.5-5.0)
[2019-12-23 09:18] LABS: Urine Appearance Cloudy; Urine Bilirubin Negative (Negative); Urine Blood Negative (Negative); Urine Color Yellow; Urine Glucose Negative (Negative); Urine Ketones Negative (Negative); Urine Nitrite Negative (Negative); Urine Protein Negative (Negative); Urine Specific Gravity 1.018 (1.010-1.030); Urine Urobilinogen Negative (Negative)
[2019-12-23] MEDS ORDERED: NS 0.9% 1000 ml BAG 1,000 ML IV SCH (10:45)
[2019-12-23] MEDS: oxyCODONE/Acetamin 5/325 mg TAB PO PRN ×2 (11:26→18:48)
[2019-12-23 12:13] LABS: C Reactive Protein 22.23 mg/L (<8.01)
[2019-12-23] MEDS: Heparin 5000 UNITS/ML 1 mL VIAL SUBCUT SCH ×2 (12:31→22:09)
[2019-12-23] MEDS ORDERED: Prochlorperazine 5 mg/ml 2 ml VIAL (10 mg) IV PRN (12:40)
[2019-12-23] MEDS: Senna TAB 8.6 mg TAB PO SCH (22:07)
[2019-12-24] MEDS: oxyCODONE/Acetamin 5/325 mg TAB PO PRN ×3 (01:24→21:59)
[2019-12-24] MEDS: Heparin 5000 UNITS/ML 1 mL VIAL SUBCUT SCH ×3 (05:17→22:08)
[2019-12-24 06:55] LABS: BUN/Creatinine Ratio 18.2 (8-20); Calcium 8.3 mg/dL (8.6-10.3); EGFR African American 88.9 (>60); EGFR Non-African American 73.5 (>60); Potassium 4.3 mmol/L (3.5-5.0)
[2019-12-24] MEDS: Senna TAB 8.6 mg TAB PO SCH (21:52)
[2019-12-25] MEDS: Heparin 5000 UNITS/ML 1 mL VIAL SUBCUT SCH ×3 (07:59→21:44)
[2019-12-25] MEDS ORDERED: CMCS - Epleronone 25 mg TAB (NF) PO SCH (09:00)
[2019-12-25] MEDS: oxyCODONE/Acetamin 5/325 mg TAB PO PRN (19:44)
[2019-12-25] MEDS: Senna TAB 8.6 mg TAB PO SCH (21:38)
[2019-12-26] MEDS: Heparin 5000 UNITS/ML 1 mL VIAL SUBCUT SCH (05:57)
[2019-12-26 08:28] VITALS: BP 137/76
== END 2019-12-26 09:45 | disposition swing bed (61) | DRG 312 ==
LOC: ED 06:11 → MEDTELE 06:11
PROVIDERS: ADMIT Internal Medicine; ATTEND Internal Medicine

== ENCOUNTER 2020-01-09 22:30 | Inpatient (IN) ==
[2020-01-09] MEDS ORDERED: NS 0.9% 1000 ml BAG 1,000 ML IV ONE (22:34)
[2020-01-09] MEDS ORDERED: Ondansetron 4 mg VIAL 2 MG/ML 2 ml VIAL IV ONE (23:24)
[2020-01-09 23:31] LABS: ABS Basophils 0.1 10^3/ul (0-0.2); ABS Eosinophils 0.4 10^3/ul (0-0.6); ABS Lymphocytes 1.2 10^3/ul (1.0-4.8); Eosinophil % 5.1 %; Hematocrit 37 % (35-47); Hemoglobin 12.9 g/dL (12.0-16.0); Lymphocyte % 14.9 %; Mean Corpuscular HGB Conc 35 g/dL (31-36); Mean Corpuscular Hemoglobin 31 pg (27-31); Mean Corpuscular Volume 91 fL (80-97); Mean Platelet Volume 7.5 fL (7.4-10.4); Platelet Count 265 10^3/uL (150-450); Red Blood Count 4.11 10^6 /uL (3.70-4.87); Red Cell Distribution Width 13 % (10-15); White Blood Count 8.1 10^3/uL (3.5-10.8)
[2020-01-09 23:48] LABS: ALT 41 U/L (7-52); AST 36 U/L (13-39); Albumin 3.3 g/dL (3.2-5.2); Albumin/Globulin Ratio 0.9 (1-3); Alkaline Phosphatase 67 U/L (34-104); Anion Gap 6 mmol/L (2-11); BUN/Creatinine Ratio 9.2 (8-20); Blood Urea Nitrogen 8 mg/dL (6-24); C Reactive Protein 182.35 mg/L (<8.01); CO2 Carbon Dioxide 32 mmol/L (22-32); Calcium 8.2 mg/dL (8.6-10.3); Chloride 96 mmol/L (101-111); EGFR African American 77.2 (>60); EGFR Non-African American 63.8 (>60); Globulin 3.7 g/dL (2-4); Glucose 105 mg/dL (70-100); Potassium 3.1 mmol/L (3.5-5.0); Sodium 134 mmol/L (135-145)
[2020-01-10 00:03] LABS: Alcohol, S < 10 mg/dL (<10)
[2020-01-10 00:19] LABS: TSH (Thyroid Stimulating Horm) 3.48 mcIU/mL (0.34-5.60)
[2020-01-10 01:16] LABS: Urine Appearance Clear; Urine Bilirubin Negative (Negative); Urine Blood Negative (Negative); Urine Color Yellow; Urine Glucose Negative (Negative); Urine Ketones Negative (Negative); Urine Nitrite Negative (Negative); Urine Protein Negative (Negative); Urine Specific Gravity 1.012 (1.010-1.030); Urine Urobilinogen Negative (Negative)
[2020-01-10 01:19] LABS: Urine Bacteria Absent (Absent); Urine Red Blood Cell Absent (Absent); Urine Squamous Epithelial Cell Present (Absent); Urine White Blood Cell 2+(11-20/hpf) (Absent)
[2020-01-10] MEDS: Potassium Chloride LIQUID 20 MEQ/15 ML LIQUID PO ONE ×2 (02:02→02:12)
[2020-01-10] MEDS ORDERED: Hydrocortisone INJ 100 MG/2ML 2 ML VIAL IM ONE ×2 (02:19→15:00)
[2020-01-10] MEDS ORDERED: NS 0.9% 1000 ml BAG 1,000 ML IV SCH (02:30)
[2020-01-10] MEDS ORDERED: Potassium Chlor 20 meq TAB.ER PO ONE (03:21)
[2020-01-10] MEDS ORDERED: Voriconazole 50 mg TAB (NF) PO SCH (05:00)
[2020-01-10] MEDS: Enoxaparin 40 MG/0.4 ML SYR(*) SUBCUT SCH (05:02)
[2020-01-10 09:16] LABS: BUN/Creatinine Ratio 9.9 (8-20); Calcium 8.3 mg/dL (8.6-10.3); EGFR African American 97.6 (>60); EGFR Non-African American 80.7 (>60); Potassium 4.3 mmol/L (3.5-5.0)
[2020-01-10] MEDS ORDERED: Voriconazole(*) 200 MG VIAL IV SCH ×2 (12:00→21:00)
[2020-01-10] MEDS ORDERED: Hydrocortisone INJ 100 MG/2ML 2 ML VIAL IV ONE (15:00)
[2020-01-10] MEDS ORDERED: GuaiFENesin DM 100 mg/10 mg in 5 ML UDC PO PRN (17:21)
[2020-01-10] MEDS: cefTRIAXone 1 gm/50 mL NS BAG 1 GM/50 ML BAG IVPB SCH (18:14)
[2020-01-10] MEDS ORDERED: VORICONAZOLE IVPB SCH (21:00)
[2020-01-10] MEDS ORDERED: NS 0.9% IVPB SCH (21:00)
[2020-01-10] MEDS: Senna TAB 8.6 mg TAB PO PRN (21:02)
[2020-01-11] MEDS: Enoxaparin 40 MG/0.4 ML SYR(*) SUBCUT SCH (01:53)
[2020-01-11 05:39] LABS: ABS Basophils 0.1 10^3/ul (0-0.2); ABS Eosinophils 0.1 10^3/ul (0-0.6); ABS Lymphocytes 1.3 10^3/ul (1.0-4.8); ABS Monocytes 0.6 10^3/ul (0-0.8); Eosinophil % 1.1 %; Hematocrit 33 % (35-47); Hemoglobin 11.4 g/dL (12.0-16.0); Lymphocyte % 16.9 %; Mean Corpuscular HGB Conc 35 g/dL (31-36); Mean Corpuscular Hemoglobin 32 pg (27-31); Mean Corpuscular Volume 92 fL (80-97); Mean Platelet Volume 7.7 fL (7.4-10.4); Nucleated Red Blood Cells % 0.2; Platelet Count 252 10^3/uL (150-450); Red Blood Count 3.57 10^6 /uL (3.70-4.87); Red Cell Distribution Width 13 % (10-15); White Blood Count 7.9 10^3/uL (3.5-10.8)
[2020-01-11] MEDS: Potassium Chlor 10 meq TAB PO SCH (09:59)
[2020-01-11] MEDS: DOXYcycline 100 MG in NS 0.9% 250 ml 250 ML IVPB SCH (13:18)
[2020-01-11] MEDS: cefTRIAXone 1 gm/50 mL NS BAG 1 GM/50 ML BAG IVPB SCH (18:00)
[2020-01-11] MEDS: Senna TAB 8.6 mg TAB PO PRN (19:41)
[2020-01-11] MEDS ORDERED: Voriconazole(*) 200 MG VIAL IV SCH (21:00)
[2020-01-11] MEDS ORDERED: NS 0.9% IVPB SCH (21:00)
[2020-01-11] MEDS ORDERED: VORICONAZOLE IVPB SCH (21:00)
[2020-01-12] MEDS: DOXYcycline 100 MG in NS 0.9% 250 ml 250 ML IVPB SCH ×2 (01:37→13:36)
[2020-01-12] MEDS: Enoxaparin 40 MG/0.4 ML SYR(*) SUBCUT SCH (02:32)
[2020-01-12] MEDS: Potassium Chlor 10 meq TAB PO SCH (09:37)
[2020-01-12 09:44] LABS: Calcium 8.3 mg/dL (8.6-10.3); EGFR African American 85.1 (>60); EGFR Non-African American 70.3 (>60); Potassium 3.4 mmol/L (3.5-5.0)
[2020-01-12 10:50] LABS: C Reactive Protein 58.07 mg/L (<8.01)
[2020-01-12] MEDS ORDERED: Benzocaine/Butamben/Tetracain (CETACAINE - SINGLE USE) 5 gm TOPICAL ONE (11:10)
[2020-01-12] MEDS ORDERED: Naloxone 0.4 mg VIAL 0.4 mg/ml 1 ml VIAL IV PRN (12:11)
[2020-01-12] MEDS ORDERED: Rocuronium 50 mg VIAL 10 mg/ml 5 ml VIAL (50 mg) ONE (12:16)
[2020-01-12] MEDS ORDERED: fentaNYL 100 mcg/2 ml 50 MCG/ML VIAL ONE (12:16)
[2020-01-12] MEDS ORDERED: Dexamethasone IV 4 MG/ML VIAL 1 ml VIAL ONE (12:41)
[2020-01-12] MEDS ORDERED: Propofol 10 MG/ML 20 ML BTL ONE (12:41)
[2020-01-12] MEDS ORDERED: Ondansetron 4 mg VIAL 2 MG/ML 2 ml VIAL ONE (12:41)
[2020-01-12] MEDS ORDERED: Etomidate 20 mg/10 ml 2 MG/ML 10 ml VIAL ONE (12:41)
[2020-01-12] MEDS ORDERED: Lidocaine 2% PF 5 ML VIAL ONE (12:41)
[2020-01-12] MEDS ORDERED: Esmolol 10 MG/ML 10 ML (100 mg) ONE (12:56)
[2020-01-12] MEDS ORDERED: Acetaminophen IV 1 GM/100ML 100 ML ONE (12:56)
[2020-01-12] MEDS: cefTRIAXone 1 gm/50 mL NS BAG 1 GM/50 ML BAG IVPB SCH (18:03)
[2020-01-12] MEDS: Senna TAB 8.6 mg TAB PO PRN (20:05)
[2020-01-13] MEDS: DOXYcycline 100 MG in NS 0.9% 250 ml 250 ML IVPB SCH ×2 (00:35→13:30)
[2020-01-13] MEDS: Polyethylene Glycol 3350 17 GM PACKET PO PRN ×2 (00:39→07:45)
[2020-01-13] MEDS: Enoxaparin 40 MG/0.4 ML SYR(*) SUBCUT SCH (02:07)
[2020-01-13] MEDS: Potassium Chlor 10 meq TAB PO SCH (07:45)
[2020-01-13] MEDS ORDERED: Potassium Chlor 20 meq TAB.ER PO ONE ×2 (08:00→19:55)
[2020-01-13] MEDS: cefTRIAXone 1 gm/50 mL NS BAG 1 GM/50 ML BAG IVPB SCH (18:07)
[2020-01-13] MEDS: Senna TAB 8.6 mg TAB PO PRN (20:27)
[2020-01-13 20:32] LABS: BUN/Creatinine Ratio 19.6 (8-20); Calcium 8.5 mg/dL (8.6-10.3); EGFR African American 68.1 (>60); EGFR Non-African American 56.3 (>60); Potassium 4.4 mmol/L (3.5-5.0)
[2020-01-14] MEDS: DOXYcycline 100 MG in NS 0.9% 250 ml 250 ML IVPB SCH ×2 (01:19→13:44)
[2020-01-14] MEDS: Enoxaparin 40 MG/0.4 ML SYR(*) SUBCUT SCH (03:01)
[2020-01-14 06:44] LABS: C Reactive Protein 34.39 mg/L (<8.01); Calcium 8.7 mg/dL (8.6-10.3); EGFR African American 82.7 (>60); EGFR Non-African American 68.3 (>60); Potassium 4.3 mmol/L (3.5-5.0)
[2020-01-14] MEDS: Potassium Chlor 10 meq TAB PO SCH (10:06)
[2020-01-14 10:16] LABS: Magnesium 1.9 mg/dL (1.9-2.7)
[2020-01-14 12:42] VITALS: BP 127/64
== END 2020-01-14 14:25 | disposition home or self-care (01) | DRG 193 ==
LOC: ED 22:30 → MED 22:30 → OBSVTOIN 01-10 02:45 → INTOOBSV 01-10 02:45 → MED 01-10 20:24
PROVIDERS: ADMIT Internal Medicine; ATTEND Internal Medicine

== ENCOUNTER 2022-04-30 17:15 | Inpatient (IN) ==
[2022-04-30 17:54] LABS: ABS Basophils 0.1 10^3/ul (0-0.2); ABS Eosinophils 0.2 10^3/ul (0-0.6); ABS Monocytes 0.6 10^3/ul (0-0.8); ABS Neutrophils 4.9 10^3/ul (1.5-7.7); Eosinophil % 2.3 %; Hematocrit 48 % (35-47); Hemoglobin 16.1 g/dL (12.0-16.0); Lymphocyte % 25.9 %; Mean Corpuscular HGB Conc 33 g/dL (31-36); Mean Corpuscular Hemoglobin 31 pg (27-31); Mean Corpuscular Volume 94 fL (80-97); Mean Platelet Volume 8.9 fL (7.4-10.4); Nucleated Red Blood Cells % 0.1; Platelet Count 174 10^3/uL (150-450); Red Blood Count 5.13 10^6 /uL (3.70-4.87); Red Cell Distribution Width 14 % (10-15); White Blood Count 7.8 10^3/uL (3.5-10.8)
[2022-04-30 18:30] LABS: Albumin/Globulin Ratio 1.3 (1-3); Calcium 8.9 mg/dL (8.6-10.3); Potassium 3.6 mmol/L (3.5-5.0); Total Bilirubin 1.1 mg/dL (0.2-1.0); eGFR CKD-EPI 57.4 (>60)
[2022-04-30] MEDS ORDERED: Furosemide 40 mg/4 ml IV VIAL IV ONE (19:49)
[2022-04-30] MEDS: Enoxaparin 40 MG/0.4 ML SYR SUBCUT SCH (23:38)
[2022-05-01 00:07] LABS: TSH Ultra Thyroid Stim Horm 0.45 mcIU/mL (0.34-5.60)
[2022-05-01 00:09] LABS: Free T4 1.53 ng/dL (0.61-1.12)
[2022-05-01 06:46] LABS: ABS Basophils 0.1 10^3/ul (0-0.2); ABS Eosinophils 0.2 10^3/ul (0-0.6); ABS Lymphocytes 2.7 10^3/ul (1.0-4.8); ABS Monocytes 0.7 10^3/ul (0-0.8); ABS Neutrophils 3.9 10^3/ul (1.5-7.7); Eosinophil % 2.8 %; Hematocrit 43 % (35-47); Hemoglobin 14.9 g/dL (12.0-16.0); Lymphocyte % 35.9 %; Mean Corpuscular HGB Conc 34 g/dL (31-36); Mean Corpuscular Hemoglobin 32 pg (27-31); Mean Corpuscular Volume 93 fL (80-97); Mean Platelet Volume 9.1 fL (7.4-10.4); Nucleated Red Blood Cells % 0.1; Platelet Count 155 10^3/uL (150-450); Red Blood Count 4.66 10^6 /uL (3.70-4.87); Red Cell Distribution Width 14 % (10-15); White Blood Count 7.6 10^3/uL (3.5-10.8)
[2022-05-01 07:09] LABS: Calcium 8.6 mg/dL (8.6-10.3); Potassium 3.5 mmol/L (3.5-5.0); eGFR CKD-EPI 68.5 (>60)
[2022-05-01] MEDS: Furosemide 40 mg/4 ml IV VIAL IV SCH (15:15)
[2022-05-01] MEDS: Enoxaparin 40 MG/0.4 ML SYR SUBCUT SCH (23:41)
[2022-05-02 06:10] LABS: ABS Basophils 0.1 10^3/ul (0-0.2); ABS Eosinophils 0.3 10^3/ul (0-0.6); ABS Lymphocytes 2.1 10^3/ul (1.0-4.8); ABS Monocytes 0.7 10^3/ul (0-0.8); ABS Neutrophils 3.5 10^3/ul (1.5-7.7); Eosinophil % 4.5 %; Hematocrit 46 % (35-47); Hemoglobin 15.2 g/dL (12.0-16.0); Lymphocyte % 30.9 %; Mean Corpuscular HGB Conc 33 g/dL (31-36); Mean Corpuscular Hemoglobin 31 pg (27-31); Mean Corpuscular Volume 94 fL (80-97); Mean Platelet Volume 8.6 fL (7.4-10.4); Platelet Count 157 10^3/uL (150-450); Red Blood Count 4.89 10^6 /uL (3.70-4.87); Red Cell Distribution Width 14 % (10-15); White Blood Count 6.6 10^3/uL (3.5-10.8)
[2022-05-02 06:28] LABS: Calcium 8.8 mg/dL (8.6-10.3); Magnesium 2.1 mg/dL (1.9-2.7); Potassium 3.9 mmol/L (3.5-5.0); eGFR CKD-EPI 65.8 (>60)
[2022-05-02] MEDS: Furosemide 40 mg/4 ml IV VIAL IV SCH (09:42)
[2022-05-02 14:35] LABS: High Sensitivity Troponin 1 Hr 37 pg/mL (<15)
[2022-05-02 18:12] LABS: Urine Appearance Cloudy; Urine Bilirubin Negative (Negative); Urine Blood 1+ (Negative); Urine Color Yellow; Urine Glucose Negative (Negative); Urine Ketones Negative (Negative); Urine Nitrite Negative (Negative); Urine Protein Negative (Negative); Urine Specific Gravity 1.005 (1.002-1.030); Urine Urobilinogen Negative (Negative)
[2022-05-02 18:22] LABS: Urine Bacteria 1+ (Absent); Urine Red Blood Cell Trace(0-2/hpf) (Absent); Urine White Blood Cell 3+(>20/hpf) (Absent)
[2022-05-02] MEDS: CMCS:Epleronone 25 mg TAB (NF) PO SCH (19:11)
[2022-05-02] MEDS: Enoxaparin 40 MG/0.4 ML SYR SUBCUT SCH (21:22)
[2022-05-03 06:36] LABS: ABS Basophils 0.1 10^3/ul (0-0.2); ABS Eosinophils 0.3 10^3/ul (0-0.6); ABS Lymphocytes 2.3 10^3/ul (1.0-4.8); ABS Monocytes 0.8 10^3/ul (0-0.8); ABS Neutrophils 3.2 10^3/ul (1.5-7.7); Hematocrit 43 % (35-47); Hemoglobin 14.3 g/dL (12.0-16.0); Lymphocyte % 34.8 %; Mean Corpuscular HGB Conc 34 g/dL (31-36); Mean Corpuscular Hemoglobin 32 pg (27-31); Mean Corpuscular Volume 94 fL (80-97); Mean Platelet Volume 9.4 fL (7.4-10.4); Nucleated Red Blood Cells % 0.1; Platelet Count 141 10^3/uL (150-450); Red Blood Count 4.52 10^6 /uL (3.70-4.87); Red Cell Distribution Width 14 % (10-15); White Blood Count 6.7 10^3/uL (3.5-10.8)
[2022-05-03 07:00] LABS: Potassium 3.9 mmol/L (3.5-5.0); eGFR CKD-EPI 74.5 (>60)
[2022-05-03] MEDS ORDERED: Regadenoson 0.4 MG/5 ML SYRINGE ONE (11:30)
[2022-05-03] MEDS ORDERED: Senna TAB 8.6 mg TAB PO PRN (18:07)
[2022-05-03] MEDS: Enoxaparin 40 MG/0.4 ML SYR SUBCUT SCH ×2 (21:35→21:52)
[2022-05-04 06:24] LABS: Blood Urea Nitrogen 22 mg/dL (6-24); CO2 Carbon Dioxide 31 mmol/L (22-32); Calcium 8.7 mg/dL (8.6-10.3); Chloride 99 mmol/L (101-111); Glucose 94 mg/dL (70-100); Sodium 141 mmol/L (135-145); eGFR CKD-EPI 75.7 (>60)
[2022-05-04 06:30] LABS: Anion Gap 11 mmol/L (2-11)
[2022-05-04] MEDS ORDERED: Magnesium Hydroxide LIQ 30 ML UDC PO PRN (09:11)
[2022-05-04] MEDS: CMCS:Epleronone 25 mg TAB (NF) PO SCH (09:36)
[2022-05-04 13:51] VITALS: BP 124/71
== END 2022-05-04 15:30 | disposition home or self-care (01) | DRG 291 ==
LOC: ED 17:15 → EDHOLD 17:15 → MEDTELE 22:11 → SUATTDRO 05-02 16:10
PROVIDERS: ADMIT Internal Medicine; ATTEND Internal Medicine

== ENCOUNTER 2023-08-16 16:46 | Inpatient (IN) ==
[2023-08-16] MEDS ORDERED: Iodixanol (CONTRAST) 320 MG/ML 100 ML SDV IV ONE (17:31)
[2023-08-16 17:35] LABS: Activated Partial Thrombo Time 30.8 seconds (26.0-38.0); INR 0.98 (0.83-1.13)
[2023-08-16 17:47] LABS: ABS Basophils 0.1 10^3/uL (0.0-0.1); ABS Eosinophils 0.3 10^3/uL (0.0-0.5); ABS Lymphocytes 1.1 10^3/uL (1.0-4.8); ABS Neutrophils 5.6 10^3/uL (1.5-7.6); ABS Nucleated RBC 0.01 10^3/ul; Eosinophil % 3.4 %; Hemoglobin 16.8 g/dL (11.5-14.3); Lymphocyte % 13.3 %; Mean Corpuscular Hemoglobin 32.8 pg (27-33); Mean Corpuscular Hgb Conc 34.2 g/dL (31-36); Mean Corpuscular Volume 95.7 fL (80-97); Mean Platelet Volume 7.8 fL (7.5-11.2); Nucleated Red Blood Cells % 0.2 %/100WBC (0.0-0.8); Platelet Count 186 10^3/uL (150-450); Red Blood Count 5.11 10^6/uL (3.63-4.92); Red Cell Distribution Width 13.9 % (12-17); White Blood Count 7.9 10^3/uL (3.8-11.8)
[2023-08-16 18:02] LABS: Albumin/Globulin Ratio 1.1 (1-3); Calcium 9.1 mg/dL (8.6-10.3); Creatinine, Serum 0.9 mg/dL (0.51-0.95); Direct Bilirubin 0.1 mg/dL (0.03-0.18); Globulin 3.6 g/dL (2-4); HDL Cholesterol 40.2 mg/dL; Indirect Bilirubin 0.8 mg/dL (0.3-1.0); Potassium 4.1 mmol/L (3.5-5.0); Total Bilirubin 0.9 mg/dL (0.2-1.0); Total Protein 7.6 g/dL (6.4-8.9); eGFR CKD-EPI 66.3 (>60)
[2023-08-16 19:38] LABS: High Sensitivity Troponin 1 Hr 14 pg/mL (<15)
[2023-08-16 20:18] LABS: Urine Appearance Clear; Urine Bilirubin Negative (Negative); Urine Blood Negative (Negative); Urine Color Yellow; Urine Glucose 3+(>=500 mg/dL) (Negative); Urine Ketones Negative (Negative); Urine Nitrite Negative (Negative); Urine Protein Negative (Negative); Urine Specific Gravity 1.028 (1.002-1.030); Urine Urobilinogen Negative (Negative)
[2023-08-17] MEDS: Enoxaparin 40 MG/0.4 ML SYR SUBCUT SCH ×2 (00:48→20:01)
[2023-08-17] MEDS: Senna TAB 8.6 mg TAB PO PRN ×2 (02:02→20:02)
[2023-08-17] MEDS ORDERED: Lactated Ringers 1000 ml BAG 1,000 ML IV ONE (15:04)
[2023-08-18 06:12] LABS: Hematocrit 45.4 % (35-45); Hemoglobin 15.7 g/dL (11.5-14.3); Mean Corpuscular Hemoglobin 32.9 pg (27-33); Mean Corpuscular Hgb Conc 34.6 g/dL (31-36); Mean Corpuscular Volume 95.1 fL (80-97); Platelet Count 178 10^3/uL (150-450); Red Blood Count 4.77 10^6/uL (3.63-4.92); Red Cell Distribution Width 14.1 % (12-17); White Blood Count 6.5 10^3/uL (3.8-11.8)
[2023-08-18 06:33] LABS: Calcium 8.6 mg/dL (8.6-10.3); Creatinine, Serum 0.76 mg/dL (0.51-0.95); Potassium 3.8 mmol/L (3.5-5.0); eGFR CKD-EPI 81.2 (>60)
[2023-08-18 06:54] LABS: TSH Ultra Thyroid Stim Horm 1.75 mcIU/mL (0.34-5.60)
[2023-08-18] MEDS: Epleronone 25 mg TAB (NF) PO SCH (08:49)
[2023-08-18] MEDS: Senna TAB 8.6 mg TAB PO PRN (20:28)
[2023-08-18] MEDS: Enoxaparin 40 MG/0.4 ML SYR SUBCUT SCH (20:29)
[2023-08-19 06:26] LABS: ABS Basophils 0.1 10^3/uL (0.0-0.1); ABS Eosinophils 0.3 10^3/uL (0.0-0.5); ABS Lymphocytes 2.2 10^3/uL (1.0-4.8); ABS Monocytes 0.7 10^3/uL (0.0-0.9); ABS Neutrophils 3.2 10^3/uL (1.5-7.6); ABS Nucleated RBC 0.02 10^3/ul; Eosinophil % 5.2 %; Hematocrit 41.8 % (35-45); Hemoglobin 14.6 g/dL (11.5-14.3); Lymphocyte % 32.8 %; Mean Corpuscular Hemoglobin 32.9 pg (27-33); Mean Corpuscular Hgb Conc 34.8 g/dL (31-36); Mean Corpuscular Volume 94.6 fL (80-97); Mean Platelet Volume 8.5 fL (7.5-11.2); Nucleated Red Blood Cells % 0.3 %/100WBC (0.0-0.8); Platelet Count 167 10^3/uL (150-450); Red Blood Count 4.42 10^6/uL (3.63-4.92); Red Cell Distribution Width 13.8 % (12-17); White Blood Count 6.6 10^3/uL (3.8-11.8)
[2023-08-19 06:43] LABS: Calcium 8.4 mg/dL (8.6-10.3); Creatinine, Serum 0.81 mg/dL (0.51-0.95); Potassium 3.8 mmol/L (3.5-5.0); eGFR CKD-EPI 75.2 (>60)
[2023-08-19] MEDS: Epleronone 25 mg TAB (NF) PO SCH (09:00)
[2023-08-19] MEDS ORDERED: Lactated Ringers 1000 ml BAG 1,000 ML IV SCH (10:00)
[2023-08-19 14:17] VITALS: BP 120/78
== END 2023-08-19 16:30 | disposition home or self-care (01) | DRG 312 ==
LOC: EDHOLD 16:46 → ED 16:46 → SUATTDRO 23:56 → MEDTELE 08-17 12:42
PROVIDERS: ADMIT Student in an Organized Health Care Education/Training Program; ATTEND Student in an Organized Health Care Education/Training Program

== ENCOUNTER 2024-01-16 06:53 | Inpatient (IN) ==
[2024-01-16] MEDS: Dexamethasone IV 4 MG/ML VIAL 1 ml VIAL IV SLOW PU ONE (07:56)
[2024-01-16] MEDS: metroNIDAZOLE IV 500 MG/100ML 500 MG/100 ML BAG IVPB ONE (07:59)
[2024-01-16] MEDS: Acetaminophen IV 1 GM/100ML 1,000 MG/100 ML BAG IV ONE (08:02)
[2024-01-16 08:03] LABS: Urine Appearance Clear; Urine Bilirubin Negative (Negative); Urine Blood Negative (Negative); Urine Color Yellow; Urine Glucose 4+ (>=1000 mg/dL) (Negative); Urine Ketones Negative (Negative); Urine Nitrite Negative (Negative); Urine Protein 1+ (>=30 mg/dL) (Negative); Urine Specific Gravity 1.014 (1.002-1.030); Urine Urobilinogen Negative (Negative)
[2024-01-16 08:04] LABS: Urine Bacteria Absent /HPF (Absent); Urine Red Blood Cell Trace(0-2/hpf) /HPF (0-Trace); Urine White Blood Cell Trace(0-5/hpf) /HPF (0-Trace)
[2024-01-16 08:16] LABS: ABS Eosinophils 0.1 10^3/uL (0.0-0.5); ABS Lymphocytes 1.1 10^3/uL (1.0-4.8); ABS Monocytes 0.5 10^3/uL (0.0-0.9); ABS Neutrophils 3.1 10^3/uL (1.5-7.6); Eosinophil % 2.1 %; Hematocrit 47.8 % (35-45); Hemoglobin 16.3 g/dL (11.5-14.3); Lymphocyte % 22.6 %; Mean Corpuscular Hemoglobin 32.8 pg (27-33); Mean Corpuscular Hgb Conc 34.1 g/dL (31-36); Mean Corpuscular Volume 96.1 fL (80-97); Mean Platelet Volume 7.9 fL (7.5-11.2); Platelet Count 120 10^3/uL (150-450); Red Blood Count 4.97 10^6/uL (3.63-4.92); Red Cell Distribution Width 14.3 % (12-17); White Blood Count 4.9 10^3/uL (3.8-11.8)
[2024-01-16 08:22] LABS: Activated Partial Thrombo Time 16.6 seconds (26.0-38.0); INR 0.9 (0.83-1.13)
[2024-01-16 08:37] LABS: High Sens Troponin Baseline 31 pg/mL (<15)
[2024-01-16 08:51] LABS: Venous Bicarbonate HCO3 27.4 mmol/L (24-28)
[2024-01-16 08:52] LABS: ALT 40 U/L (7-52); Albumin 3.9 g/dL (3.2-5.2); Albumin/Globulin Ratio 1.3 (1-3); Alkaline Phosphatase 43 U/L (35-149); Anion Gap 11 mmol/L (2-16); Blood Urea Nitrogen 11 mg/dL (6-24); C Reactive Protein 29.66 mg/L (<8.01); CO2 Carbon Dioxide 28 mmol/L (22-32); Calcium 8.9 mg/dL (8.6-10.3); Chloride 99 mmol/L (101-111); Creatinine, Serum 0.99 mg/dL (0.51-0.95); Globulin 3.1 g/dL (2-4); Glucose 113 mg/dL (70-100); Sodium 138 mmol/L (135-145); T4, Total 10.66 mcg/dL (6.09-12.23); Total Bilirubin 1.2 mg/dL (0.2-1.0); eGFR CKD-EPI 58.7 (>60)
[2024-01-16 08:56] LABS: Free T4 0.86 ng/dL (0.61-1.12)
[2024-01-16 09:13] LABS: High Sensitivity Troponin 1 Hr 38 pg/mL (<15)
[2024-01-16] MEDS: Aztreonam 2 GM in NS 0.9% 100 ml BAG 100 ML IVPB ONE (09:25)
[2024-01-16 10:21] LABS: Potassium Redraw 3.9 mmol/L (3.5-5.0)
[2024-01-16] MEDS: Vancomycin 1,500 MG in NS 0.9% 250 ml 250 ML IVPB ONE (10:40)
[2024-01-16] MEDS: Lactated Ringers 1000 ml BAG 1,000 ML IV ONE (10:50)
[2024-01-16] MEDS ORDERED: Vancomycin per Pharmacy 1 EA NOTE FOLLOW UP SCH (12:00)
[2024-01-16] MEDS ORDERED: Nystatin TOP POWDER 15 GM BTL TOPICAL PRN (13:58)
[2024-01-16] MEDS ORDERED: Cefepime 1 GM in Dextrose 1 GM/50 ML BAG IV SCH (15:00)
[2024-01-16] MEDS: Potassium Chlor 20 meq TAB.ER PO ONE (18:19)
[2024-01-16] MEDS: Cholecalciferol (VIT D3) 1,000 unit TAB PO SCH (18:19)
[2024-01-16] MEDS: NS 0.9% 500 ml BAG 500 ML IV ONE (18:20)
[2024-01-16] MEDS: Enoxaparin 40 MG/0.4 ML SYR SUBCUT SCH (20:07)
[2024-01-16] MEDS: Lactated Ringers 1000 ml BAG 250 ML IV ONE (22:01)
[2024-01-17 06:37] LABS: ABS Lymphocytes 0.3 10^3/uL (1.0-4.8); ABS Monocytes 0.3 10^3/uL (0.0-0.9); ABS Neutrophils 4.4 10^3/uL (1.5-7.6); ABS Nucleated RBC 0.01 10^3/ul; Eosinophil % 0.4 %; Hematocrit 47.9 % (35-45); Hemoglobin 16.3 g/dL (11.5-14.3); Lymphocyte % 6.3 %; Mean Corpuscular Hemoglobin 32.8 pg (27-33); Mean Corpuscular Hgb Conc 33.9 g/dL (31-36); Mean Corpuscular Volume 96.7 fL (80-97); Mean Platelet Volume 7.7 fL (7.5-11.2); Nucleated Red Blood Cells % 0.2 %/100WBC (0.0-0.8); Platelet Count 118 10^3/uL (150-450); Red Blood Count 4.96 10^6/uL (3.63-4.92); Red Cell Distribution Width 14.2 % (12-17); White Blood Count 5.1 10^3/uL (3.8-11.8)
[2024-01-17 07:02] LABS: Calcium 8.3 mg/dL (8.6-10.3); Creatinine, Serum 0.71 mg/dL (0.51-0.95); Potassium 4.6 mmol/L (3.5-5.0); eGFR CKD-EPI 87.5 (>60)
[2024-01-17] MEDS: Epleronone 25 mg TAB (NF) PO SCH (08:31)
[2024-01-17] MEDS ORDERED: Epleronone 25 mg TAB (NF) PO SCH ×2 (09:00)
[2024-01-17] MEDS ORDERED: Vancomycin 1,250 MG in NS 0.9% 250 ml 250 ML IVPB SCH (10:00)
[2024-01-17 15:29] LABS: C Reactive Protein 94.68 mg/L (<8.01)
[2024-01-18] MEDS: Ondansetron 4 mg VIAL 2 MG/ML 2 ml VIAL IV PRN (08:47)
[2024-01-18] MEDS: Acetaminophen IV 1 GM/100ML 1,000 MG/100 ML BAG IV PRN (08:50)
[2024-01-18 09:09] LABS: ABS Eosinophils 0.1 10^3/uL (0.0-0.5); ABS Monocytes 0.6 10^3/uL (0.0-0.9); ABS Neutrophils 2.9 10^3/uL (1.5-7.6); Eosinophil % 3.2 %; Hematocrit 44.3 % (35-45); Hemoglobin 14.8 g/dL (11.5-14.3); Lymphocyte % 21.2 %; Mean Corpuscular Hemoglobin 32.1 pg (27-33); Mean Corpuscular Hgb Conc 33.5 g/dL (31-36); Mean Corpuscular Volume 95.8 fL (80-97); Mean Platelet Volume 8.1 fL (7.5-11.2); Nucleated Red Blood Cells % 0.1 %/100WBC (0.0-0.8); Platelet Count 111 10^3/uL (150-450); Red Blood Count 4.62 10^6/uL (3.63-4.92); Red Cell Distribution Width 14.8 % (12-17); White Blood Count 4.6 10^3/uL (3.8-11.8)
[2024-01-18 09:50] LABS: C Reactive Protein 61.64 mg/L (<8.01); Calcium 7.9 mg/dL (8.6-10.3); Creatinine, Serum 0.98 mg/dL (0.51-0.95); Potassium 4.2 mmol/L (3.5-5.0); eGFR CKD-EPI 59.4 (>60)
[2024-01-18] MEDS: Lactated Ringers 1000 ml BAG 1,000 ML IV SCH (10:21)
[2024-01-18] MEDS: DOXYcycline 100 MG in NS 0.9% 250 ml 250 ML IVPB SCH (11:35)
[2024-01-18] MEDS: Senna TAB 8.6 mg TAB PO SCH (21:35)
[2024-01-19 08:09] LABS: ABS Eosinophils 0.2 10^3/uL (0.0-0.5); ABS Lymphocytes 1.1 10^3/uL (1.0-4.8); ABS Monocytes 0.6 10^3/uL (0.0-0.9); ABS Neutrophils 2.7 10^3/uL (1.5-7.6); ABS Nucleated RBC 0.01 10^3/ul; Eosinophil % 3.5 %; Hematocrit 41.9 % (35-45); Hemoglobin 14.2 g/dL (11.5-14.3); Lymphocyte % 23.5 %; Mean Corpuscular Hemoglobin 32.4 pg (27-33); Mean Corpuscular Hgb Conc 33.9 g/dL (31-36); Mean Corpuscular Volume 95.5 fL (80-97); Nucleated Red Blood Cells % 0.1 %/100WBC (0.0-0.8); Platelet Count 106 10^3/uL (150-450); Red Blood Count 4.39 10^6/uL (3.63-4.92); Red Cell Distribution Width 14.1 % (12-17); White Blood Count 4.5 10^3/uL (3.8-11.8)
[2024-01-19 08:26] LABS: Albumin/Globulin Ratio 1.3 (1-3); Calcium 7.6 mg/dL (8.6-10.3); Creatinine, Serum 0.74 mg/dL (0.51-0.95); Globulin 2.4 g/dL (2-4); Potassium 3.8 mmol/L (3.5-5.0); Total Bilirubin 0.6 mg/dL (0.2-1.0); Total Protein 5.4 g/dL (6.4-8.9); eGFR CKD-EPI 83.3 (>60)
[2024-01-19] MEDS ORDERED: Vancomycin Trough Check NOTE FOLLOW UP ONE (09:30)
[2024-01-19 10:27] LABS: Magnesium 1.6 mg/dL (1.9-2.7)
[2024-01-19] MEDS: Potassium Chloride LIQUID 20 MEQ/15 ML LIQUID PO ONE (10:41)
[2024-01-19] MEDS: Magnesium Sulf 4 GM/100 ML IV 4,000 MG/100 ML BAG IVPB ONE (13:36)
[2024-01-20 07:10] LABS: Albumin 3.1 g/dL (3.2-5.2); Albumin/Globulin Ratio 1.2 (1-3); Creatinine, Serum 0.7 mg/dL (0.51-0.95); Globulin 2.6 g/dL (2-4); Potassium 4.1 mmol/L (3.5-5.0); Total Bilirubin 0.7 mg/dL (0.2-1.0); Total Protein 5.7 g/dL (6.4-8.9)
[2024-01-20 07:29] LABS: Hematocrit 47.1 % (35-45); Hemoglobin 15.7 g/dL (11.5-14.3); Mean Corpuscular Hemoglobin 32.7 pg (27-33); Mean Corpuscular Hgb Conc 33.3 g/dL (31-36); Mean Corpuscular Volume 98.5 fL (80-97); Mean Platelet Volume 8.5 fL (7.5-11.2); Platelet Count 104 10^3/uL (150-450); Red Blood Count 4.79 10^6/uL (3.63-4.92); Red Cell Distribution Width 14.7 % (12-17)
[2024-01-20 08:08] LABS: ABS Eosinophils 0.1 10^3/uL (0.0-0.5); ABS Lymphocytes 1.8 10^3/uL (1.0-4.8); ABS Monocytes 0.7 10^3/uL (0.0-0.9); ABS Neutrophils 2.4 10^3/uL (1.5-7.6); ABS Nucleated RBC 0.02 10^3/ul; Eosinophil % 2.6 %; Lymphocyte % 35.3 %; Nucleated Red Blood Cells % 0.3 %/100WBC (0.0-0.8); RBC Morphology Normal (Normal)
[2024-01-20 10:01] LABS: Magnesium 2.1 mg/dL (1.9-2.7)
[2024-01-20 20:04] LABS: Anaplasma phagocytophilum Negative (Negative); B. miyamotoi PCR, B Negative (Negative); Babesia divergens/MO-1 Negative (Negative); Babesia ducani Negative (Negative); Ehrlichia chaffeensis Negative (Negative); Ehrlichia ewingii/canis Negative (Negative); Ehrlichia muris eauclairensis Negative (Negative)
[2024-01-21 05:55] LABS: ABS Basophils 0.1 10^3/uL (0.0-0.1); ABS Eosinophils 0.1 10^3/uL (0.0-0.5); ABS Monocytes 0.6 10^3/uL (0.0-0.9); ABS Nucleated RBC 0.01 10^3/ul; Eosinophil % 2.7 %; Hematocrit 43.1 % (35-45); Hemoglobin 14.8 g/dL (11.5-14.3); Lymphocyte % 41.1 %; Mean Corpuscular Hemoglobin 32.7 pg (27-33); Mean Corpuscular Hgb Conc 34.4 g/dL (31-36); Mean Platelet Volume 8.1 fL (7.5-11.2); Nucleated Red Blood Cells % 0.2 %/100WBC (0.0-0.8); Platelet Count 154 10^3/uL (150-450); Red Blood Count 4.53 10^6/uL (3.63-4.92); Red Cell Distribution Width 14.4 % (12-17); White Blood Count 4.8 10^3/uL (3.8-11.8)
[2024-01-21 06:36] LABS: Calcium 8.4 mg/dL (8.6-10.3); Creatinine, Serum 0.68 mg/dL (0.51-0.95); Potassium 3.9 mmol/L (3.5-5.0); eGFR CKD-EPI 89.6 (>60)
[2024-01-21 09:20] VITALS: BP 114/56
== END 2024-01-21 12:40 | disposition home or self-care (01) | DRG 872 ==
LOC: EDHOLD 06:53 → ED 06:53 → MED 14:16 → SUATTDRO 01-18 10:22
PROVIDERS: ADMIT Internal Medicine; ATTEND Family Medicine